=== PATIENT | female | born 1965 | race Caucasian/White ===

== ENCOUNTER 2020-03-25 09:16 | Outpatient (REF) | payer OTHER, SELFPAY ==
[2020-03-25 12:06] LABS: Cholesterol 204 mg/dL; HDL Cholesterol 54 mg/dL; LDL Cholesterol Calculated 127 mg/dl; Triglycerides 119 mg/dL
[2020-03-25 12:11] LABS: Estimated Average Glucose 120 mg/dL; Hemoglobin A1c % 5.8 %
[2020-03-25 12:15] LABS: Free T4 (Free Thyroxine) 1.05 ng/dL (0.71-1.85); Thyroid Stimulating Hormone 2.71 uIU/mL (0.32-4.0)
== END 2020-03-25 09:17 | disposition home or self-care (01) ==
LOC: HO.MANLR 09:16
PROVIDERS: PCP Internal Medicine; Visit Provider Physician Assistant
DX: E03.9 Hypothyroidism, unspecified (principal); E78.2 Mixed hyperlipidemia; R73.01 Impaired fasting glucose
CPT/HCPCS: 80061; 83036; 84439; 84443

== ENCOUNTER 2020-09-28 09:23 | Outpatient (REF) | payer OTHER, SELFPAY ==
[2020-09-28 11:24] LABS: MANUAL DIFF FLAG NO
[2020-09-28 11:40] LABS: Basophils Absolute Auto 0.1 X10*3/uL (0.0-0.2); Basophils Percent Auto 0.7 % (0-2); Eosinophils Absolute Auto 0.9 X10*3/uL (0.0-0.4); Eosinophils Percent Auto 12.1 % (0-4); Hematocrit 42.2 % (37-47); Hemoglobin 13.8 g/dl (12.0-16.0); Imm Gran Abs Auto 0.01 X10*3/uL (0.00-0.03); Imm Gran Pct Auto 0.1 % (0.0-0.4); Lymphocytes Absolute Auto 2.1 X10*3/uL (1.2-4.9); Mean Corpuscular HGB Conc 32.7 g/dl (31.0-35.0); Mean Corpuscular Hemoglobin 31.4 pg (27.0-33.0); Mean Corpuscular Volume 95.9 fL (80-98); Mean Platelet Volume 11.6 fL (9.4-12.3); Monocytes Absolute Auto 0.6 X10*3/uL (0.1-1.2); Neutrophils Absolute Auto 3.6 X10*3/uL (2.0-8.3); Neutrophils Percent Auto 50.1 % (45-73); Platelet Count 184 X10*3/uL (160-400); Red Cell Distribution Width 12.8 % (11.0-16.0); White Blood Count 7.1 X10*3/uL (4.8-10.8)
[2020-09-28 11:49] LABS: Prothrombin Time 11.6 SEC (10.8-13.0)
[2020-09-28 12:02] LABS: Iron 106 mcg/dL (30-160); Percent Iron Saturation 31 % (15-50); Total Iron Binding Capacity 337 mcg/dL (228-428); Unsaturated Iron Binding 231 ug/dL
[2020-09-28 12:07] LABS: Ferritin 124 ng/mL (10-250); Free T4 (Free Thyroxine) 1.16 ng/dL (0.71-1.85); Thyroid Stimulating Hormone 1.34 uIU/mL (0.32-4.0)
[2020-09-28 12:28] LABS: Folate 7.8 ng/mL (> or = 4.0); Vitamin B12 285 pg/mL (200-900)
== END 2020-09-28 09:24 | disposition home or self-care (01) ==
LOC: HO.MANLDS 09:23
PROVIDERS: PCP Internal Medicine; Visit Provider Physician Assistant
DX: R58 Hemorrhage, not elsewhere classified (principal)
CPT/HCPCS: 36415; 82607; 82728; 82746; 83540; 84439; 84443; 85025; 85610

== ENCOUNTER 2021-10-02 08:36 | Outpatient (REF) | payer OTHER, SELFPAY ==
[2021-10-02 11:31] LABS: MANUAL DIFF FLAG NO
[2021-10-02 11:46] LABS: Basophils Percent Auto 0.6 % (0-2); Hematocrit 42.1 % (37.0-47.0); Hemoglobin 14.3 g/dl (12.0-16.0); Imm Gran Abs Auto 0.01 X10*3/uL (0.00-0.03); Imm Gran Pct Auto 0.2 % (0.0-0.4); Lymphocytes Absolute Auto 2.3 X10*3/uL (1.2-4.9); Lymphocytes Percent Auto 35.7 % (20-40); Mean Corpuscular Hemoglobin 31.4 pg (27.0-33.0); Mean Corpuscular Volume 92.5 fL (80.0-98.0); Mean Platelet Volume 11.9 fL (9.4-12.3); Monocytes Absolute Auto 0.7 X10*3/uL (0.1-1.2); Monocytes Percent Auto 10.2 % (2-11); Neutrophils Absolute Auto 2.4 x10*3/uL (2.0-8.3); Neutrophils Percent Auto 37.3 % (45-73); Platelet Count 191 X10*3/uL (160-400); Red Blood Count 4.55 X10*6/uL (4.20-5.50); Red Cell Distribution Width 12.9 % (11.0-16.0); White Blood Count 6.4 X10*3/uL (4.8-10.8)
[2021-10-02 12:30] LABS: Alanine Aminotransferase 40 U/L (0-31); Albumin Level 4.1 g/dL (3.5-5.0); Alkaline Phosphatase 72 U/L (39-117); Anion Gap 13 (12-20); Aspartate Amino Transferase 29 U/L (5-31); Bilirubin Total 0.7 mg/dL (0.0-1.0); Blood Urea Nitrogen 17 mg/dL (9-16); Calcium 9.1 mg/dL (8.4-10.2); Carbon Dioxide 26 mmol/L (22-29); Chloride 107 mmol/L (96-108); Cholesterol 189 mg/dL; Estimated Glomerular Filt Rate > 60; Free T4 (Free Thyroxine) 1.15 ng/dL (0.71-1.85); Glucose Random 108 mg/dL (60-115); HDL Cholesterol 55 mg/dL; LDL Cholesterol Calculated 105 mg/dl; Potassium 4.3 mmol/L (3.3-5.1); Sodium 142 mmol/L (135-145); Thyroid Stimulating Hormone 0.11 uIU/mL (0.32-4.0); Total Protein 6.4 g/dL (6.5-8.0); Triglycerides 146 mg/dL
[2021-10-02 20:36] LABS: Estimated Average Glucose 111 mg/dL; Hemoglobin A1c % 5.5 %
== END 2021-10-02 08:37 | disposition home or self-care (01) ==
LOC: HO.MANLDS 08:36
PROVIDERS: Visit Provider Physician Assistant
DX: Z00.00 Encounter for general adult medical examination without abnormal findings (principal)
CPT/HCPCS: 36415; 80053; 80061; 83036; 84439; 84443; 85025

== ENCOUNTER 2021-11-06 10:30 | Outpatient (REF) | payer OTHER, SELFPAY ==
[2021-11-06 13:52] LABS: Thyroid Stimulating Hormone 0.31 uIU/mL (0.32-4.0)
== END 2021-11-06 10:31 | disposition home or self-care (01) ==
LOC: HO.MANLDS 10:30
PROVIDERS: Visit Provider Internal Medicine
DX: Z00.00 Encounter for general adult medical examination without abnormal findings (principal)
CPT/HCPCS: 36415; 84439; 84443

== ENCOUNTER 2022-10-01 07:34 | Outpatient (REF) | payer OTHER, SELFPAY ==
[2022-10-01 12:08] LABS: Alanine Aminotransferase 82 U/L (0-31); Albumin Level 4.1 g/dL (3.5-5.0); Alkaline Phosphatase 82 U/L (39-117); Anion Gap 12 (12-20); Aspartate Amino Transferase 63 U/L (5-31); Blood Urea Nitrogen 12 mg/dL (9-16); Calcium 9.6 mg/dL (8.4-10.2); Carbon Dioxide 27 mmol/L (22-29); Chloride 108 mmol/L (96-108); Cholesterol 205 mg/dL; Estimated Glomerular Filt Rate > 60; Glucose Random 116 mg/dL (60-115); HDL Cholesterol 53 mg/dL; LDL Cholesterol Calculated 120 mg/dl; Potassium 4.2 mmol/L (3.3-5.1); Sodium 143 mmol/L (135-145); Total Protein 6.3 g/dL (6.5-8.0); Triglycerides 160 mg/dL
[2022-10-01 12:18] LABS: Estimated Average Glucose 117 mg/dL; Hemoglobin A1C 149.0119 umol/L; Hemoglobin A1c % 5.7 %
[2022-10-01 12:24] LABS: Free T4 (Free Thyroxine) 1.21 ng/dL (0.71-1.85); Thyroid Stimulating Hormone 2.28 uIU/mL (0.32-4.0)
== END 2022-10-01 07:35 | disposition home or self-care (01) ==
LOC: HO.MANLDS 07:34
PROVIDERS: Visit Provider Physician Assistant
DX: Z00.00 Encounter for general adult medical examination without abnormal findings (principal)
CPT/HCPCS: 36415; 80053; 80061; 83036; 84439; 84443

== ENCOUNTER 2023-02-08 09:10 | Outpatient (REF) | payer OTHER, SELFPAY ==
[2023-02-08 13:25] LABS: Basophils Absolute Auto 0.1 X10*3/uL (0.0-0.2); Basophils Percent Auto 0.8 % (0-2); Eosinophils Absolute Auto 0.8 X10*3/uL (0.0-0.4); Hematocrit 44.8 % (37.0-47.0); Hemoglobin 15.1 g/dl (12.0-16.0); Imm Gran Abs Auto 0.01 X10*3/uL (0.00-0.03); Imm Gran Pct Auto 0.2 % (0.0-0.4); Lymphocytes Absolute Auto 2.3 X10*3/uL (1.2-4.9); Lymphocytes Percent Auto 39.1 % (20-40); MANUAL DIFF FLAG NO; Mean Corpuscular HGB Conc 33.7 g/dl (31.0-35.0); Mean Corpuscular Hemoglobin 31.8 pg (27.0-33.0); Mean Corpuscular Volume 94.3 fL (80.0-98.0); Mean Platelet Volume 12.1 fL (9.4-12.3); Monocytes Absolute Auto 0.4 X10*3/uL (0.1-1.2); Monocytes Percent Auto 7.4 % (2-11); Neutrophils Absolute Auto 2.3 x10*3/uL (2.0-8.3); Neutrophils Percent Auto 38.5 % (45-73); Platelet Count 167 X10*3/uL (160-400); Red Blood Count 4.75 X10*6/uL (4.20-5.50); Red Cell Distribution Width 12.4 % (11.0-16.0); White Blood Count 5.9 X10*3/uL (4.8-10.8)
[2023-02-08 14:01] LABS: Alanine Aminotransferase 84 U/L (0-31); Albumin Level 4.1 g/dL (3.5-5.0); Alkaline Phosphatase 78 U/L (39-117); Anion Gap 11 (12-20); Aspartate Amino Transferase 66 U/L (5-31); Bilirubin Total 0.6 mg/dL (0.0-1.0); Blood Urea Nitrogen 14 mg/dL (9-16); Calcium 9.1 mg/dL (8.4-10.2); Carbon Dioxide 26 mmol/L (22-29); Chloride 109 mmol/L (96-108); Cholesterol 189 mg/dL (<200); Estimated Average Glucose 117 mg/dL; Estimated Glomerular Filt Rate > 60; Glucose Random 115 mg/dL (60-115); HDL Cholesterol 54 mg/dL (>40); Hemoglobin A1c % 5.7 % (<6.0); LDL Cholesterol Calculated 108 mg/dL (<100); Potassium 4.2 mmol/L (3.3-5.1); Sodium 142 mmol/L (135-145); Total Protein 6.5 g/dL (6.5-8.0); Triglycerides 139 mg/dL (<150)
== END 2023-02-08 09:11 | disposition home or self-care (01) ==
LOC: HO.MANLDS 09:10
PROVIDERS: Visit Provider Physician Assistant
DX: R73.01 Impaired fasting glucose (principal); E78.5 Hyperlipidemia, unspecified
CPT/HCPCS: 36415; 80053; 80061; 83036; 85025

== ENCOUNTER 2023-06-11 13:51 | Outpatient (AMB) | payer OTHER, SELFPAY ==
--- NOTE | 2023-06-11 14:01 | MHC.OFFVIS ---
Intake Intake Visit Reasons: Ureteral stone 11 mm/Hydronephrosis Intake Note: NEW Patient presents today to established treatment for Ureteral Stone/Hydronephrosis: Meds- None Allergies to Antibiotic- No Known Allergies Blood Thinner- None Post Void Residual: Patient Symptoms: None Accompanied by: Self / Same As Patient Coding
--- NOTE | 2023-06-11 14:36 | A.OFFVIS_ITS ---
Intake Intake Visit Reasons: Ureteral stone/Hydronephrosis Intake Note: NEW Patient presents today to established treatment for Ureteral Stone/Hydronephrosis: Meds- None Allergies to Antibiotic- Penicillin Blood Thinner- None Sodium Chlorite Operator Required: No Accompanied by: Self / Same As Patient Allergies Penicillins Allergy (Mild, Verified 06/11/23 14:54) Unknown Medication List - Last Reconciled 06/11/23 by Amber Blanco MD fluticasone furoate-vilanterol 200-25 mcg/dose (Breo Ellipta) 1 ea inhalation DAILY levalbuterol tartrate 45 mcg/actuation 2 puffs inhalation Q4-6H levothyroxine (Synthroid) 112 mcg PO DAILY mirtazapine 15 mg PO BEDTIME pravastatin 40 mg PO DAILY simethicone (Gas Relief Extra Strength) mg PO triamcinolone acetonide 0.1% topical DAILY HPI HPI Comments History of Present Illness Details Serena is a 58-year-old female here for new patient evaluation. She has a history of kidney stones for about 4-5 years. She states that her prior urologist no longer takes her insurance. The patient states that on 05/07/[address] scan due to right flank pain. She has a report on her phone that I have reviewed. (office will have report faxed to my attention) The report indicated mild right hydronephrosis with 5 mm distal ureteral stone and other nonobstructing right kidney stones. Left kidney within normal limits. The patient had follow-up imaging with an ultrasound. I reviewed renal ultrasound report dated 06/05/2023-- right hydronephrosis, moderate, minimal cortical scarring as seen on prior CT on 05/07/2023 for left kidney within normal limits The patient states that she no longer has pain. She denies any irritative voiding symptoms. PLAN:--discussed re-evaluation with CT abdomen and pelvis without IV contrast. Diet sheet provided and reviewed with information regarding recommendations to reduce kidney stone production. She states that she is on a high-protein diet for weight management. Discussed 24 hour urine collection to be obtained Follow up in 6 weeks [facility] Surgical History No pertinent past surgical history Family History Father No problems noted. Mother No problems noted. Social History Alcohol intake: current Alcohol intake frequency: holidays/special occasions only Patient Tobacco Use Status: Never used Tobacco Review of Systems Const All systems reviewed & are unremarkable except as noted in HPI and below Reports no additional complaints Eyes Reports no additional complaints ENT Reports no additional complaints Card Denies dyspnea Resp Denies cough and Denies dyspnea GI Reports no additional complaints Reports no additional complaints Musc Reports no additional complaints Skin/Breast Denies rash and Denies unusual bruising Neuro Reports no additional complaints Psych Reports no additional complaints Endo Reports no additional complaints James/Lymph Reports no additional complaints Aller/Immun Reports no additional complaints Physical Exam Const General: cooperative, healthy appearing and no acute distress Orientation/consciousness: patient oriented x3 HEENT Head: Yes normal to inspection, Yes normocephalic and Yes atraumatic Eyes Conjunctivae: conjunctivae normal Neck Neck: Yes normal visual inspection and Yes trachea midline Chest Chest palpation & inspection: normal inspection of the chest Resp Effort & Inspection: normal respiratory effort Cardio Rate: regular rate GI Inspection: Yes normal to inspection Skin General skin exam: no rashes or lesions noted Neuro General: patient oriented x3 Extrem General: No edema Psych Appearance: grossly normal Results AMB Urinalysis, Automated UA Leukoctes 0 Eric/uL Last Edit by SUZI Burgess on 06/11/23 15:07 UA Nitrite Negative Last Edit by SUZI Burgess on 06/11/23 15:07 UA Urobilinogen 0.2 mg/dL Last Edit by SUZI Burgess on 06/11/23 15:0 7 UA Protein 0 mg/dL Last Edit by SUZI Burgess on 06/11/23 15:07 UA pH 6.0 Last Edit by SUZI Burgess on 06/11/23 15:07 UA Blood 25 Greg/uL Last Edit by SUZI Burgess on 06/11/23 15:07 1+ Betsey Boyd 06/11/23 15:07 UA Specific [place] 1.010 Last Edit by SUZI Burgess on 06/11/23 15: 07 UA Ketone Negative Last Edit by SUZI Burgess on 06/11/23 15:07 UA Bilirubin 0 mg/dL Last Edit by SUZI Burgess on 06/11/23 15:07 UA Glucose 0 mg/dL Last Edit by SUZI Burgess on 06/11/23 15:07 Results Reviewed Results Reviewed: Laboratory Last Values Urine pH (Auto) 6.0 06/11/23 14:59 Specific [place] (Auto) 1.010 06/11/23 14:59 Urine Protein (Auto) 0 mg/dL 06/11/23 14:59 Glucose (UA)(Auto) 0 mg/dL 06/11/23 14:59 Urine Ketones (Auto) Negative 06/11/23 14:59 Urine Blood (Auto) 25 Greg/uL 06/11/23 14:59 Urine Nitrite (Auto) Negative 06/11/23 14:59 Urine Bilirubin (Auto) 0 mg/dL 06/11/23 14:59 Urine Urobilinogen (Auto) 0.2 mg/dL 06/11/23 14:59 Leukocyte Esterase (Auto) 0 Eric/uL 06/11/23 14:59 Assessment & Plan Assessment & Plan (1) History of kidney stones: Code(s): Z87.442 - Personal history of urinary calculi (2) Hydronephrosis, right: Code(s): N13.30 - Unspecified hydronephrosis (3) Renal calculi: Code(s): N20.0 - Calculus of kidney Plan discussed re-evaluation with CT abdomen and pelvis without IV contrast. Diet sheet provided and reviewed with information regarding recommendations to reduce kidney stone production. She states that she is on a high-protein diet for weight management. Discussed 24 hour urine collection to be obtained Follow up in 6 weeks Orders: Orders AMB Urinalysis Automated Today Z13.9 - Encounter for screening, unspecified CT abdomen pelvis wo IV con Today N13.30 - Unspecified hydronephrosis, N20.0 - Calculus of kidney Patient Instructions: The patient had an opportunity to ask questions regarding treatment plan. All questions were answered. Imaging, Laboratory studies and physical exam results were discussed and reviewed in detail. No major barriers to understanding were identified. The patient expressed understanding and agreement with the above treatment plan. The patient is aware they should contact our office by phone for worsening of their current condition or the appearance of new symptoms. Compliance is encouraged with any medications and followup testing that is ordered. It is a privilege to be allowed the opportunity to participate in the urologic care of your patient. If you have any questions or concerns regarding treatment for the above conditions please do not hesitate to contact me. The office telephone contact is [phone]. This note is constructed in part using voice recognition software. While every effort has been made to ensure accuracy marketing analytics manager errors may have been included. Yours sincerely, Amber Blanco MD Coding Level of Care Code New Pt Level 4 (71955) Diagnoses History of kidney stones Z87.442 Hydronephrosis, right N13.30 Renal calculi N20.0
== END 2023-06-11 15:48 | disposition home or self-care (01) ==
PROVIDERS: PCP Internal Medicine; Referring Provider Internal Medicine; Visit Provider Urology
DX: Z87.442 Personal history of urinary calculi (principal); N13.30 Unspecified hydronephrosis; N20.0 Calculus of kidney; Z13.9 Encounter for screening, unspecified
CPT/HCPCS: 99204

== ENCOUNTER → 2023-06-11 13:51 | Outpatient (BNVA) | payer OTHER, SELFPAY | PROVIDERS: PCP Internal Medicine; Visit Provider Urology | DX: N13.2 Hydronephrosis with renal and ureteral calculous obstruction (principal) | CPT/HCPCS: 81003 ==

== ENCOUNTER 2023-07-17 14:28 | Outpatient (REF) | payer OTHER, SELFPAY ==
--- NOTE | ~2023-07-17 | CT_ITS ---
EXAMINATION: CT ABDOMEN AND PELVIS WITHOUT CONTRAST CLINICAL INFORMATION: Hydronephrosis COMPARISON: None available. TECHNIQUE: Multidetector volumetric imaging was performed from the superior aspect of the liver through the pubic symphysis. Sagittal and coronal reformatted images were obtained on the technologist's workstation. This CT examination was performed using dose optimization techniques as appropriate, variously including the following: *Automated exposure control *Adjustment of mA and/or kV according to patient size (this includes techniques or standardized protocols for targeted exams where dose is matched to indication/reason for exam; i.e. extremities or head) *Use of iterative reconstruction technique DLP: 585 mGy-cm FINDINGS: LUNG BASES: The visualized lung bases are unremarkable. LIVER, GALLBLADDER, AND BILIARY TREE: Liver is of low attenuation due to hepatic steatosis and enlarged The gallbladder is unremarkable with no evidence of radiopaque gallstones, gallbladder wall thickening, or obvious pericholecystic inflammatory changes. PANCREAS: Unremarkable. SPLEEN: Unremarkable. ADRENAL GLANDS: Unremarkable. KIDNEYS AND URETERS: Right kidney revealed speckled calcifications in the lower pole questionably associated with mass as well as lower pole nonobstructing 0.6 cm stone. There is no hydroureteronephrosis on the right Left kidney is unremarkable. BLADDER: Bladder is decompressed without stones or masses GASTROINTESTINAL TRACT: The small and large bowel are unremarkable. The appendix is unremarkable. ABDOMINAL WALL: No significant hernia is appreciated. LYMPH NODES: Normal. VASCULAR: Unremarkable. PELVIC VISCERA: Unremarkable. OSSEOUS STRUCTURES: Unremarkable. CT/CT abdomen pelvis wo IV con IMPRESSION: 1. Right nephrolithiasis without hydroureteronephrosis. 2. Questionable mass in the lower pole of the right kidney associated with calcifications. Correlate with IV enhanced CT scan or/and ultrasound 3. Hepatic steatosis and hepatomegaly. Fleischner guidelines were followed.
== END 2023-07-17 14:29 | disposition home or self-care (01) ==
LOC: HO.CT 14:28
PROVIDERS: PCP Internal Medicine; Visit Provider Urology
DX: N13.30 Unspecified hydronephrosis (principal); N20.0 Calculus of kidney
CPT/HCPCS: 74176

== ENCOUNTER 2023-07-26 13:33 | Outpatient (AMB) | payer OTHER, SELFPAY ==
--- NOTE | 2023-07-26 14:08 | A.OFFVIS_ITS ---
Intake Visit Reasons: 6w/CT/[facility] Intake Note: Patient presents today to for a follow-up on [facility] & CT Scan Results: Meds- None Allergies to Antibiotic- Penicillin Blood Thinner- None Laundry Machine Tender Required: No Accompanied by: Self / Same As Patient Allergies Penicillins Allergy (Mild, Verified 06/11/23 14:54) Unknown HPI Comments Details: 07/26/2023--Serena has a history of kidney stones. She was initially evaluated on 06/11/2023. I discussed metabolic workup and she completed 24 hour urine on 07/02/2023. Discussed 24 hour urine results: Total volume 1.37 L, Calcium 82 mg; Oxalate 22 mg, Sodium 126, Citrate 522 mg. Instructed on importance of fluid intake, discussed increasing fluid intake to [address] imaging without IV contrast completed on 07/17/2023 which noted a indeterminate renal mass. Plan repeat CT with and without IV contrast follow-up in 6 months. 07/17/2023-- CTAP: Right kidney revealed speckled calcifications in the lower pole questionably associated with mass. nonobstructing 0.6 cm stone lower pole. Left kidney is unremarkable. Review of chart: 06/11/23--Serena is a 58-year-old female here for new patient evaluation. She has a history of kidney stones for about 4-5 years. She states that her prior urologi st no longer takes her insurance. The patient states that on 05/07/[address] scan due to right flank pain. She has a report on her phone that I have reviewed. (office will have report faxed to my attention) The report indicated mild right hydronephrosis with 5 mm distal ureteral stone and other nonobstructing right kidney stones. Left kidney within normal limits. The patient had follow-up imaging with an ultrasound. The patient states that she no longer has pain. She denies any irritative voiding symptoms. I reviewed renal ultrasound report dated 06/05/2023-- right hydronephrosis, moderate, minimal cortical scarring as seen on prior CT on 05/07/2023 for left kidney within normal limits. Discussed re-evaluation with CT abdomen and pelvis without IV contrast. Diet sheet provided and reviewed with information regarding recommendations to reduce kidney stone production. She states that she is on a high-protein diet for weight management. Discussed 24 hour urine collection to be obtained. Follow up in 6 weeks [facility] Medical History (Updated 09/01/23 @ 11:34 by Amber Blanco MD) Hx of mammogram Mixed hyperlipidemia Angioedema Migraine Fibromyalgia Hypothyroid Asthma Anxiety Impaired fasting blood sugar Surgical History (Updated 07/16/23 @ 10:41 by SUZI Burgess) Hx of colonoscopy Family History Father No problems noted. Mother No problems noted. Social History Alcohol intake: current Alcohol intake frequency: holidays/special occasions only Patient Tobacco Use Status: Never used Tobacco Review of Systems Const All systems reviewed & are unremarkable except as noted in HPI and below Reports no additional complaints Eyes Reports no additional complaints ENT Reports no additional complaints Card Reports no additional complaints Resp Reports no additional complaints GI Reports no additional complaints Reports as per HPI Musc Reports no additional complaints Skin/Breast Reports system reviewed and no additional complaints, except as documented Neuro Reports no additional complaints Psych Reports no additional complaints Endo Reports no additional complaints James/Lymph Reports no additional complaints Aller/Immun Reports no additional complaints Results AMB Urinalysis, Automated UA Leukoctes 0 Eric/uL Last Edit by SUZI Burgess on 07/26/23 14:28 UA Nitrite Negative Last Edit by SUZI Burgess on 07/26/23 14:28 UA Urobilinogen 0.2 mg/dL Last Edit by SUZI Burgess on 07/26/23 14:2 8 UA Protein 0 mg/dL Last Edit by SUZI Burgess on 07/26/23 14:28 UA pH 6.0 Last Edit by SUZI Burgess on 07/26/23 14:28 UA Blood 10 Greg/uL Last Edit by SUZI Burgess on 07/26/23 14:28 UA Specific [place] 1.015 Last Edit by SUZI Burgess on 07/26/23 14: 28 UA Ketone Negative Last Edit by Madisonnavi OliverSUZI daniel on 07/26/23 14:28 UA Bilirubin 0 mg/dL Last Edit by SUZI Burgess on 07/26/23 14:28 UA Glucose 0 mg/dL Last Edit by SUZI Burgess on 07/26/23 14:28 Results Reviewed Results Reviewed: Laboratory Last Values Urine pH (Auto) 6.0 07/26/23 14:25 Specific [place] (Auto) 1.015 07/26/23 14:25 Urine Protein (Auto) 0 mg/dL 07/26/23 14:25 Glucose (UA)(Auto) 0 mg/dL 07/26/23 14:25 Urine Ketones (Auto) Negative 07/26/23 14:25 Urine Blood (Auto) 10 Greg/uL 07/26/23 14:25 Urine Nitrite (Auto) Negative 07/26/23 14:25 Urine Bilirubin (Auto) 0 mg/dL 07/26/23 14:25 Urine Urobilinogen (Auto) 0.2 mg/dL 07/26/23 14:25 Leukocyte Esterase (Auto) 0 Eric/uL 07/26/23 14:25 Date of Service: 07/17/23 EXAMINATION: CT ABDOMEN AND PELVIS WITHOUT CONTRAST CLINICAL INFORMATION: Hydronephrosis COMPARISON: None available. TECHNIQUE: Multidetector volumetric imaging was performed from the superior aspect of the liver through the pubic symphysis. Sagittal and coronal reformatted images were obtained on the technologist's workstation. This CT examination was performed using dose optimization techniques as appropriate, variously including the following: *Automated exposure control *Adjustment of mA and/or kV according to patient size (this includes techniques or standardized protocols for targeted exams where dose is matched to indication/reason for exam; i.e. extremities or head) *Use of iterative reconstruction technique DLP: 585 mGy-cm FINDINGS: LUNG BASES: The visualized lung bases are unremarkable. LIVER, GALLBLADDER, AND BILIARY TREE: Liver is of low attenuation due to hepatic steatosis and enlarged The gallbladder is unremarkable with no evidence of radiopaque gallstones, gallbladder wall thickening, or obvious pericholecystic inflammatory changes. PANCREAS: Unremarkable. SPLEEN: Unremarkable. ADRENAL GLANDS: Unremarkable. KIDNEYS AND URETERS: 4 harding BLADDER: Bladder is decompressed without stones or masses GASTROINTESTINAL TRACT: The small and large bowel are unremarkable. The appendix is unremarkable. ABDOMINAL WALL: No significant hernia is appreciated. LYMPH NODES: Normal. VASCULAR: Unremarkable. PELVIC VISCERA: Unremarkable. OSSEOUS STRUCTURES: Unremarkable. IMPRESSION: 1. Right nephrolithiasis without hydroureteronephrosis. 2. Questionable mass in the lower pole of the right kidney associated with calcifications. Correlate with IV enhanced CT scan or/and ultrasound 3. Hepatic steatosis and hepatomegaly. Assessment & Plan Assessment & Plan (1) Renal calculi: Code(s): N20.0 - Calculus of kidney Category: Medical (2) Renal mass of unknown nature: Code(s): N28.89 - Other specified disorders of kidney and ureter Category: Medical Plan CT abdomen with and without IV contrast in 6 months Orders: Orders CT abdomen wo/w IV con 6 Months N28.89 - Other specified disorders of kidney and ureter AMB Urinalysis Automated 07/26/23 Z13.9 - Encounter for screening, unspecified Patient Instructions: The patient had an opportunity to ask questions regarding treatment plan. The patient expressed understanding and agreement with the above treatment plan. The patient is aware they should contact our office by phone for worsening of their current condition or the appearance of new symptoms. Compliance is encouraged with any medications and followup testing that is ordered. It is a privilege to be allowed the opportunity to participate in the urologic care of your patient. If you have any questions or concerns regarding treatment for the above conditions please do not hesitate to contact me. The office telephone contact is [phone]. This note is constructed in part using voice recognition software. While every effort has been made to ensure accuracy mingler operator errors may have been included. Yours sincerely, Amber Blanco MD Coding Level of Care Code Est Pt Level 4 (56185) Diagnoses Renal calculi N20.0 Renal mass of unknown nature N28.89
== END 2023-07-26 15:19 | disposition home or self-care (01) ==
PROVIDERS: PCP Internal Medicine; Visit Provider Urology
DX: N20.0 Calculus of kidney (principal); N28.89 Other specified disorders of kidney and ureter
CPT/HCPCS: 99214

== ENCOUNTER → 2023-07-26 13:33 | Outpatient (BNVA) | payer OTHER, SELFPAY | PROVIDERS: PCP Internal Medicine; Visit Provider Urology | DX: N20.0 Calculus of kidney (principal); N28.89 Other specified disorders of kidney and ureter | CPT/HCPCS: 81003 ==

== ENCOUNTER 2023-11-13 10:08 | Outpatient (REF) | payer OTHER, SELFPAY ==
[2023-11-13 13:09] LABS: MANUAL DIFF FLAG NO
[2023-11-13 13:14] LABS: Basophils Absolute Auto 0.1 X10*3/uL (0.0-0.2); Basophils Percent Auto 0.9 % (0-2); Eosinophils Absolute Auto 0.6 X10*3/uL (0.0-0.4); Eosinophils Percent Auto 11.6 % (0-4); Hematocrit 43.7 % (37.0-47.0); Hemoglobin 15.1 g/dl (12.0-16.0); Imm Gran Abs Auto 0.01 X10*3/uL (0.00-0.03); Imm Gran Pct Auto 0.2 % (0.0-0.4); Lymphocytes Absolute Auto 2.4 X10*3/uL (1.2-4.9); Lymphocytes Percent Auto 43.9 % (20-40); Mean Corpuscular HGB Conc 34.6 g/dl (31.0-35.0); Mean Corpuscular Hemoglobin 32.3 pg (27.0-33.0); Mean Corpuscular Volume 93.6 fL (80.0-98.0); Mean Platelet Volume 12.3 fL (9.4-12.3); Monocytes Absolute Auto 0.5 X10*3/uL (0.1-1.2); Neutrophils Absolute Auto 1.9 x10*3/uL (2.0-8.3); Neutrophils Percent Auto 34.4 % (45-73); Platelet Count 160 X10*3/uL (160-400); Red Blood Count 4.67 X10*6/uL (4.20-5.50); Red Cell Distribution Width 12.3 % (11.0-16.0); White Blood Count 5.5 X10*3/uL (4.8-10.8)
[2023-11-13 14:06] LABS: Estimated Average Glucose 111 mg/dL; Hemoglobin A1c % 5.5 % (<6.0)
[2023-11-13 14:11] LABS: Blood Urea Nitrogen 16 mg/dL (9-16); Estimated Glomerular Filt Rate > 60
[2023-11-13 14:22] LABS: Alanine Aminotransferase 64 U/L (0-31); Albumin Level 4.3 g/dL (3.5-5.0); Alkaline Phosphatase 68 U/L (39-117); Anion Gap 14 (12-20); Aspartate Amino Transferase 45 U/L (5-31); Bilirubin Total 0.8 mg/dL (0.0-1.0); Blood Urea Nitrogen 16 mg/dL (9-16); Calcium 9.9 mg/dL (8.4-10.2); Carbon Dioxide 27 mmol/L (22-29); Chloride 106 mmol/L (96-108); Cholesterol 161 mg/dL (<200); Estimated Glomerular Filt Rate > 60; Glucose Random 102 mg/dL (60-115); HDL Cholesterol 52 mg/dL (>40); LDL Cholesterol Calculated 90 mg/dL (<100); Sodium 143 mmol/L (135-145); Total Protein 6.9 g/dL (6.5-8.0); Triglycerides 95 mg/dL (<150)
[2023-11-13 14:30] LABS: Free T4 (Free Thyroxine) 1.31 ng/dL (0.71-1.85)
== END 2023-11-13 10:09 | disposition home or self-care (01) ==
LOC: HO.MANLDS 10:08
PROVIDERS: Urology; Visit Provider Physician Assistant
DX: E03.9 Hypothyroidism, unspecified (principal); N20.0 Calculus of kidney; N13.30 Unspecified hydronephrosis; Z87.442 Personal history of urinary calculi; Z13.1 Encounter for screening for diabetes mellitus
CPT/HCPCS: 36415; 80053; 80061; 82565; 83036; 84439; 84443; 84520; 85025

== ENCOUNTER 2024-01-08 10:34 | Outpatient (REF) | payer OTHER, SELFPAY ==
--- NOTE | ~2024-01-08 | CT_ITS ---
EXAMINATION: CT ABDOMEN WITHOUT AND WITH CONTRAST CLINICAL INFORMATION: Renal mass COMPARISON: None available. TECHNIQUE: Contiguous axial thin section helical images of the abdomen were performed before and after the administration of 85 mL of Omnipaque 350 intravenous contrast. The data set was reformatted in the coronal and sagittal planes and reviewed on an independent workstation. This CT examination was performed using dose optimization techniques as appropriate, variously including the following: *Automated exposure control *Adjustment of mA and/or kV according to patient size (this includes techniques or standardized protocols for targeted exams where dose is matched to indication/reason for exam; i.e. extremities or head) *Use of iterative reconstruction technique DLP: 511 mGy-cm FINDINGS: LUNG BASES: Clear LIVER, GALLBLADDER, AND BILIARY TREE: Mild diffuse fatty infiltration of the liver. No focal liver lesion. No intrahepatic biliary ductal dilatation. PANCREAS: Normal SPLEEN: Normal ADRENAL GLANDS AND KIDNEYS: Normal adrenal glands. There is a 6 mm obstructing calculus in the mid right ureter with moderate hydroureteronephrosis. At the anterior aspect of the lower pole of the right kidney, there is a 1.6 cm area of cortical thinning and retraction with multiple small calcifications with no definite enhancing mass. This may represent an area of prior surgery or a remote infarct or site of infection. The left kidney appears normal. BOWEL LOOPS: Visualized small and large bowel loops are unremarkable. LYMPH NODES: Normal. VASCULAR: Scattered atherosclerotic calcifications of the abdominal aorta. BONES: Unremarkable CT/CT abdomen wo/w IV con IMPRESSION: 1. There is a 6 mm obstructing calculus in the mid right ureter with moderate right hydroureteronephrosis. 2. There is a 1.6 cm area of cortical thinning and retraction at the anterior aspect of the lower pole of the right kidney with multiple small calcifications with no definite enhancing mass. This may represent an area of prior surgery or a remote infarct or site of infection. 3. Mild fatty infiltration of the liver. Fleischner guidelines were followed. Electronically signed by: Chevy Espinal MD 01/08/2024 02:12 PM EDT
[2024-01-08] MEDS: iohexoL 350 MG/ML 75 ML INFUS..BTL 85 ML IV (11:01)
[2024-01-08 16:21] LABS: Creatinine POC 0.9 mg/dL (0.5-1.4); GFR POC > 60
== END 2024-01-08 10:35 | disposition home or self-care (01) ==
LOC: HO.CT 10:34
PROVIDERS: PCP Internal Medicine; Visit Provider Urology
DX: N28.89 Other specified disorders of kidney and ureter (principal)
CPT/HCPCS: 74170; 82565; Q9967

== ENCOUNTER 2024-02-21 13:43 | Outpatient (AMB) | payer OTHER, SELFPAY ==
--- NOTE | 2024-02-21 14:05 | MHC.OFFVIS ---
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 The patient states she has no kidney pain or urinary symptoms. I will check an ultrasound kidney and bladder to fu hydronephrosis and ureteral stone, no enhancing renal mass noted. CTAT w/wo IV contrast- 01/07/34--There is a 6 mm obstructing calculus in the mid right ureter with moderate right hydroureteronephrosis. no suspicious renal mass. Review of chart: 07/26/2023--Serena has a history of kidney stones. She was initially evaluated on 06/11/2023. I discussed metabolic workup and she completed 24 hour urine on 07/02/2023. Discussed 24 hour urine results: Total volume 1.37 L, Calcium 82 mg; Oxalate 22 mg, Sodium 126, Citrate 522 mg. Instructed on importance of fluid intake, discussed increasing fluid intake to [address] imaging without IV contrast completed on 07/17/2023 which noted a indeterminate renal mass. Plan repeat CT with and without IV contrast follow-up in 6 months. 07/17/2023-- CTAP: Right kidney revealed speckled calcifications in the lower pole questionably associated with mass. nonobstructing 0.6 cm stone lower pole. Left kidney is unremarkable. 06/11/23--Serena is a 58-year-old female here for new patient evaluation. She has a history of kidney stones for about 4-5 years. She states that her prior urologist no longer takes her insurance. The patient states that on 05/07/[address] scan due to right flank pain. She has a report on her phone that I have reviewed. (office will have report faxed to my attention) The report indicated mild right hydronephrosis with 5 mm distal ureteral stone and other nonobstructing right kidney stones. Left kidney within normal limits. The patient had follow-up imaging with an ultrasound. The patient states that she no longer has pain. She denies any irritative voiding symptoms. I reviewed renal ultrasound report dated 06/05/2023-- right hydronephrosis, moderate, minimal cortical scarring as seen on prior CT on 05/07/2023 for left kidney within normal limits. Discussed re-evaluation with CT abdomen and pelvis without IV contrast. Diet sheet provided and reviewed with information regarding recommendations to reduce kidney stone production. She states that she is on a high-protein diet for weight management. Discussed 24 hour urine collection to be obtained. Follow up in 6 weeks [facility] Medical History Hx of mammogram Mixed hyperlipidemia Angioedema Migraine Fibromyalgia Hypothyroid Asthma Anxiety Impaired fasting blood sugar Surgical History Hx of colonoscopy Family History Father No problems noted. Mother No problems noted. Social History Alcohol intake: current Alcohol intake frequency: holidays/special occasions only Patient Tobacco Use Status: Never used Tobacco Review of Systems Const All systems reviewed & are unremarkable except as noted in HPI and below Reports no additional complaints Eyes Reports no additional complaints ENT Reports no additional complaints Card Reports no additional complaints Resp Reports no additional complaints GI Reports no additional complaints Reports as per HPI Musc Reports no additional complaints Skin/Breast Reports system reviewed and no additional complaints, except as documented Neuro Reports no additional complaints Psych Reports no additional complaints Endo Reports no additional complaints James/Lymph Reports no additional complaints Aller/Immun Reports no additional complaints Results AMB Urinalysis, Automated UA Leukoctes 15 Eric/uL Last Edit by SHAE Phillips on 02/21/24 14:22 UA Nitrite Negative Last Edit by SHAE Phillips on 02/21/24 14:22 UA Urobilinogen 3.5 mg/dL Last Edit by SHAE Phillips on 02/21/24 14:22 UA Protein 0 mg/dL Last Edit by SHAE Phillips on 02/21/24 14:22 UA pH 8.0 Last Edit by SHAE Phillips on 02/21/24 14:22 UA Blood 10 Greg/uL Last Edit by SHAE Phillips on 02/21/24 14:22 UA Specific [place] 1.015 Last Edit by SHAE Phillips on 02/21/24 14:22 UA Ketone Negative Last Edit by SHAE Phillips on 02/21/24 14:22 UA Bilirubin 0 mg/dL Last Edit by SHAE Phillips on 02/21/24 14:22 UA Glucose 0 mg/dL Last Edit by SHAE Phillips on 02/21/24 14:22 Results Reviewed Results Reviewed: Laboratory Last Values Urine pH (Auto) 8.0 02/21/24 14:21 Specific [place] (Auto) 1.015 02/21/24 14:21 Urine Protein (Auto) 0 mg/dL 02/21/24 14:21 Glucose (UA)(Auto) 0 mg/dL 02/21/24 14:21 Urine Ketones (Auto) Negative 02/21/24 14:21 Urine Blood (Auto) 10 Greg/uL 02/21/24 14:21 Urine Nitrite (Auto) Negative 02/21/24 14:21 Urine Bilirubin (Auto) 0 mg/dL 02/21/24 14:21 Urine Urobilinogen (Auto) 3.5 mg/dL 02/21/24 14:21 Leukocyte Esterase (Auto) 15 Eric/uL 02/21/24 14:21 Date of Service: 01/08/24 CT ABDOMEN WITHOUT AND WITH CONTRAST CLINICAL INFORMATION: Renal mass COMPARISON: None available. TECHNIQUE: Contiguous axial thin section helical images of the abdomen were performed before and after the administration of 85 mL of Omnipaque 350 intravenous contrast. The data set was reformatted in the coronal and sagittal planes and reviewed on an independent workstation. This CT examination was performed using dose optimization techniques as appropriate, variously including the following: *Automated exposure control *Adjustment of mA and/or kV according to patient size (this includes techniques or standardized protocols for targeted exams where dose is matched to indication/reason for exam; i.e. extremities or head) *Use of iterative reconstruction technique DLP: 511 mGy-cm FINDINGS: LUNG BASES: Clear LIVER, GALLBLADDER, AND BILIARY TREE: Mild diffuse fatty infiltration of the liver. No focal liver lesion. No intrahepatic biliary ductal dilatation. PANCREAS: Normal SPLEEN: Normal ADRENAL GLANDS AND KIDNEYS: Normal adrenal glands. There is a 6 mm obstructing calculus in the mid right ureter with moderate hydroureteronephrosis. At the anterior aspect of the lower pole of the right kidney, there is a 1.6 cm area of cortical thinning and retraction with multiple small calcifications with no definite enhancing mass. This may represent an area of prior surgery or a remote infarct or site of infection. The left kidney appears normal. BOWEL LOOPS: Visualized small and large bowel loops are unremarkable. LYMPH NODES: Normal. VASCULAR: Scattered atherosclerotic calcifications of the abdominal aorta. BONES: Unremarkable IMPRESSION: 1. There is a 6 mm obstructing calculus in the mid right ureter with moderate right hydroureteronephrosis. 2. There is a 1.6 cm area of cortical thinning and retraction at the anterior aspect of the lower pole of the right kidney with multiple small calcifications with no definite enhancing mass. This may represent an area of prior surgery or a remote infarct or site of infection. 3. Mild fatty infiltration of the liver. Date of Service: 07/17/23 EXAMINATION: CT ABDOMEN AND PELVIS WITHOUT CONTRAST CLINICAL INFORMATION: Hydronephrosis COMPARISON: None available. TECHNIQUE: Multidetector volumetric imaging was performed from the superior aspect of the liver through the pubic symphysis. Sagittal and coronal reformatted images were obtained on the technologist's workstation. This CT examination was performed using dose optimization techniques as appropriate, variously including the following: *Automated exposure control *Adjustment of mA and/or kV according to patient size (this includes techniques or standardized protocols for targeted exams where dose is matched to indication/reason for exam; i.e. extremities or head) *Use of iterative reconstruction technique DLP: 585 mGy-cm FINDINGS: LUNG BASES: The visualized lung bases are unremarkable. LIVER, GALLBLADDER, AND BILIARY TREE: Liver is of low attenuation due to hepatic steatosis and enlarged The gallbladder is unremarkable with no evidence of radiopaque gallstones, gallbladder wall thickening, or obvious pericholecystic inflammatory changes. PANCREAS: Unremarkable. SPLEEN: Unremarkable. ADRENAL GLANDS: Unremarkable. KIDNEYS AND URETERS: 4 harding BLADDER: Bladder is decompressed without stones or masses GASTROINTESTINAL TRACT: The small and large bowel are unremarkable. The appendix is unremarkable. ABDOMINAL WALL: No significant hernia is appreciated. LYMPH NODES: Normal. VASCULAR: Unremarkable. PELVIC VISCERA: Unremarkable. OSSEOUS STRUCTURES: Unremarkable. IMPRESSION: 1. Right nephrolithiasis without hydroureteronephrosis. 2. Questionable mass in the lower pole of the right kidney associated with calcifications. Correlate with IV enhanced CT scan or/and ultrasound 3. Hepatic steatosis and hepatomegaly. Assessment & Plan Assessment & Plan (1) Renal calculi: Code(s): N20.0 - Calculus of kidney Category: Medical (2) Hydronephrosis, right: Code(s): N13.30 - Unspecified hydronephrosis Category: Medical (3) Ureteral stone: Code(s): N20.1 - Calculus of ureter Category: Medical Plan Ultrasound retroperitoneal, flomax Orders: Orders AMB Urinalysis Automated 02/21/24 Z13.9 - Encounter for screening, unspecified US retroperitoneal comp 02/21/24 N13.30 - Unspecified hydronephrosis, N20.1 - Calculus of ureter Medications: New tamsulosin (Flomax) 0.4 mg PO BEDTIME 20 caps 0RF to help pass stone Patient Instructions: The patient had an opportunity to ask questions regarding treatment plan. The patient expressed understanding and agreement with the above treatment plan. The patient is aware they should contact our office by phone for worsening of their current condition or the appearance of new symptoms. Compliance is encouraged with any medications and followup testing that is ordered. It is a privilege to be allowed the opportunity to participate in the urologic care of your patient. If you have any questions or concerns regarding treatment for the above conditions please do not hesitate to contact me. The office telephone contact is [phone]. This note is constructed in part using voice recognition software. While every effort has been made to ensure accuracy recreational programs director errors may have been included. Yours sincerely, Amber Blanco MD Coding Level of Care Code Est Pt Level 4 (12050) Diagnoses Renal calculi N20.0 Hydronephrosis, right N13.30 Ureteral stone N20.1
== END 2024-02-21 14:54 | disposition home or self-care (01) ==
PROVIDERS: PCP Internal Medicine; Visit Provider Urology
DX: N20.0 Calculus of kidney (principal); N13.30 Unspecified hydronephrosis; N20.1 Calculus of ureter
CPT/HCPCS: 99214

== ENCOUNTER → 2024-02-21 13:43 | Outpatient (BNVA) | payer OTHER, SELFPAY | PROVIDERS: PCP Internal Medicine; Visit Provider Urology | DX: N20.0 Calculus of kidney (principal) | CPT/HCPCS: 81003 ==

== ENCOUNTER 2024-03-11 09:35 | Outpatient (REF) | payer OTHER, SELFPAY ==
--- NOTE | ~2024-03-11 | US_ITS ---
EXAMINATION: US RETROPERITONEAL COMPLETE (RENAL) CLINICAL INFORMATION: Hydronephrosis. COMPARISON: CT abdomen January 08, 2024 TECHNIQUE: Real-time imaging of the kidneys and bladder. FINDINGS: RIGHT KIDNEY: 10.9 x 5 x 5.3 cm (SAG x AP x TRV). The kidney is normal in size, contour, and echogenicity. Renal cortical thickness is normal. Moderate right hydronephrosis. LEFT KIDNEY: 10.6 x 5.1 x 5.8 cm (SAG x AP x TRV). The kidney is normal in size, contour, and echogenicity. Renal cortical thickness is normal. No calculi or focal parenchymal lesions. No hydronephrosis. BLADDER: Well distended and normal. Bilateral ureteral jets are demonstrated. Prevoid bladder volume is 406 mL. Postvoid volume is 16.5 mL. US/US retroperitoneal comp IMPRESSION: Moderate right-sided hydronephrosis. Electronically signed by: Dayton Gorman MD 03/12/2024 05:00 PM [facility]
--- OUTSIDE RECORDS SUMMARY | 2024-03-17 17:13 | XMS_ITS | Data Portability ---
Author Organization [facility] Address [address] [place] [id number] Assessment Encounter Date Assessment Date Assessment LastModified by Organization Details LastModified Time 05/17/2023 05/17/2023 Patient agreed and verbally consents to this audio and video Telehealth appt via a secure platform [email or web address] Not available 05/17/2023 09:47:46 Plan of Treatment Reminders Order Date Submit Date Provider Last Modified By Organization Details Last Modified Time Details Appointments ANNUAL EXAM 2024 01:30P M JANETTE YODER Not available Not available Not available Lab CMP, serum or plasma 2023 024 [facility], [address] [place] [address], [id number], 11/15/2023 16:32:39 hemoglobi n A1c, QN, blood 2023 024 [facility], [address] [place] [address], [id number], 11/15/2023 16:32:39 lipid panel, serum 2023 024 [facility], [address] [place] [address], [id number], 11/15/2023 16:32:39 CBC w/ auto diff 2023 024 [facility], [address] [place] [address], [id number], 11/15/2023 16:32:39 T3, free, serum or plasma 2023 024 [facility], [address] [place] [address], [id number], 11/15/2023 16:25:01 tsi (thyroid- stimulati ng immunoglo bulin), serum 2023 024 [facility], [address] [place] [address], [id number], 11/15/2023 16:25:01 thyroid peroxidas e (tpo) Ab, serum 2023 024 [facility], [address] [place] [address], [id number], 11/15/2023 16:25:01 C reactive protein, QN, serum or plasma 2023 024 [facility], [address] [place] [address], [id number], 11/15/2023 16:25:00 ESR (erythroc yte sedimenta tion rate), blood 2023 024 [facility], [address] [place] [address], [id number], 11/15/2023 16:25:01 TSH + free T4, serum 2023 024 [facility], [address] [place] [address], [id number], 11/15/2023 16:25:01 TSH + free T4, serum 2023 024 [facility], [address] [place] [address], [id number], 11/15/2023 16:39:56 TSH + free T4, serum 2023 024 [facility], [place], [address], 12/11/2023 15:18:48 T3, free, serum or plasma 2023 024 [facility], [place], [address], 12/11/2023 15:18:48 Referral urologist referral - recent ER trip for R kidney stone 2023 024 [email or web address] Ascencion Sanches MD, [address] [place] [address] Stas Gusman, [place], [address], 05/20/2023 08:42:25 Procedures None recorded. Surgeries None recorded. Imaging XR, wrist, 3 or more view 2022 023 [email or web address] Not available 03/26/2023 08:28:25 XR, wrist, 3 or more view 2022 023 ANIL Not available 03/25/2023 15:37:41 XR, shoulder, 2 or more view 2022 023 ANIL Not available 03/25/2023 15:39:23 US, kidney 2023 024 [email or web address] [facility], [facility] [place], [address], 05/22/2023 10:18:20 Medication Orders mirtazapi ne 15 mg tablet 2022 023 [facility]/Pharmacy #2024, [address] [place], [address], 10/03/2022 09:08:21 Breo Ellipta 200 mcg-25 mcg/dose powder for inhalatio n 2022 023 [email or web address] [facility]/Pharmacy #5, [address] [place], [address], 03/20/2023 08:57:53 neomycin- polymyxin -hydrocor t 3.5 mg-10,000 unit/mL-1 % ear drops,[facility] p 2023 024 [facility] [address] [place], [address], 11/15/2023 16:22:17 meclizine 25 mg tablet 2023 024 [facility] [address] [place], [address], 11/15/2023 16:25:26 triamcino lone acetonide 0.1 % topical cream 2023 024 [facility] [address] [place], [address], 11/15/2023 16:31:44 prednison e 10 mg tablet 2023 024 [facility] [address] [place], [address], 12/11/2023 15:15:37 ciproflox acin 500 mg tablet 2023 024 [facility] [address] [place], [address], 12/11/2023 15:15:35 Patient TargetsNo targets recorded. Patient InstructionsNo instructions recorded. Reason for Referral Urologist Referral for Kidne y stone recent ER trip, has right sided kidney stone, 5 mm (previous urologist does not take her insurance) recent ER trip for R kidney stone Referring Physician: Kyra Recio, Internal Medicine, Encounter Date: 05/17/2023 Results Created Date Observation Date Name Description Value Unit Range Abnormal Flag Note LastModifiedBy Organization Detail LastModifiedTime 10/06/1910/05/2022 MAMMO reid, digit al, bilat eral No observ ation record ed. [facility] [address] [place], [address], 10/05/2022 09:13:11 03/25/2003/21/2023 XR, wrist , 3 or more view No observ ation record ed. [address], [address], 03/25/2023 15:54:38 03/25/20 23 03/21/2023 XR, wrist , 3 or more view No observ ation record ed. [address], [address], 03/25/2023 15:54:38 03/25/20 23 03/21/2023 XR, shoul brooke, 2 or more view No observ ation record ed. [address], [address], 03/25/2023 15:54:39 06/05/19 24 06/05/2023 US, kidne y No observ ation record ed. [email or web address] [facility] [address] [place], [address], 06/05/2023 16:03:12 07/18/19 24 07/17/2023 CT, chest , w/o contr ast No observ ation record ed. [email or web address] [facility] (Medical Records) [address] [place], [address], 07/19/2023 08:35:01 10/08/19 24 10/07/2023 MAMMO , scree tanesha, digit al, bilat eral No observ ation record ed. [email or web address] [address], [address], 10/08/2023 08:00:38 01/08/20 24 01/08/2024 CT, abdom en, w/wo contr ast No observ ation record ed. [email or web address] [facility] (Medical Records) [address] [place], [address], 01/08/2024 14:22:25 03/12/20 24 03/11/2024 US, retro perit oneum No observ ation record ed. [email or web address] [facility] (Medical Records) [address] [facility], [place], [address], 03/13/2024 08:25:53 Result Notes None recorded. Problems Name Problem SNOMED Code Status Onset Date Resolution Date Notes Provider Name and Address Organization Details Recorded Time Herpes simplex 77910598 Active 2017 Not Available [facility] 3 15:48:15 Generalize d anxiety disorder 17729553 Active 2021 Not Available [facility] 3 15:48:14 Pain of right shoulder joint 2839990205363 9100 Active 2022 JANETTE YODER [address],[place], [address] , [facility] 3 16:17:02 Bilateral wrist pain 1222913497130 9105 Active 2022 JANETTE YODER [address], [place], [address] , [facility] 3 16:17:21 Kidney stone 57220714 Active 2023 JANETTE YODER [address], [place], [address] , [facility] 4 09:47:06 Acute otitis media 0441350 Active 2023 JANETTE YODER [address], [place], [address] , [facility] 4 16:21:41 Hyperthyro idism 32824690 Active 2023 JANETTE YODER [address],[place], [address] , [facility] 4 16:23:01 Dizziness 353264694 Active 2023 JANETTE YODER [address],[place], [address] , [facility] 4 16:24:47 Acute otitis media 7727242 Active 2023 JANETTE YODER [address], [facility] [place], [address] , [facility] 4 15:12:09 Asthma 214421383 Active 2017 Not Available [facility] 3 15:48:14 Hypothyroi dism 14413739 Active 2017 Not Available [facility] 3 15:48:15 Fibromyalg ia 089551360 Active 2017 Not Available [facility] 3 15:48:14 Migraine 85850735 Active 2017 Not Available [facility] 3 15:48:14 Impaired fasting glycemia 992442012 Active 2017 Not Available [facility] 3 15:48:15 Angioedema 93251869 Active 2017 Not Available [facility] 3 15:48:15 Eczema 75827909 Active 2017 Not Available [facility] 3 15:48:15 Mixed hyperlipid emia 610103817 Active 2017 Not Available [facility] 3 15:48:14 Anxiety 43992463 Active 2017 Not Available [facility] 3 15:48:15 Problem Notes None recorded. Procedures Surgical History Date Name Laterality Status Provider Name and Address Organization Details Recorded Time 4 Cerumen Removal completed JANETTE YODER [address], [place], [address], [facility] 12/11/2023 15:17:59 4 Colonoscopy completed Herminio Lo DO [address], [place], [address], [facility] 05/27/2023 16:07:28 9 Most Recent Mammogram completed Gema Sotelo [facility] 10/20/2018 16:15:30 9 Colonoscopy completed Ana Queen [facility] 04/09/2018 09:59:35 Imaging Results Imaging Date Name Status LastModified by Organization Details LastModified Time 10/05/2022 MAMMO, screening, digital, bilateral completed [facility] [address] [place] [address], [address], 10/05/2022 09:13:11 03/21/2023 XR, wrist, 3 or more view completed [address], [address], 03/25/2023 15:54:38 03/21/2023 XR, wrist, 3 or more view completed [address], [address], 03/25/2023 15:54:38 03/21/2023 XR, shoulder, 2 or more view completed [address], [address], 03/25/2023 15:54:39 06/05/2023 US, kidney completed [address] [place], [address], 06/05/2023 16:03:12 07/17/2023 CT, chest, w/o contrast completed [email or web address] [place] [address] (Medical Records) [address] [place], [address], 07/19/2023 08:35:01 10/07/2023 MAMMO, screening, digital, bilateral completed [email or web address] [address], [address], 10/08/2023 08:00:38 01/08/2024 CT, abdomen, w/wo contrast [email or web address] [address] [place], [address], 01/08/2024 14:22:25 03/11/2024 US, retroperitoneum completed [address] (Medical Records) [address] [place], [address], 03/13/2024 08:25:53 Procedure Notes None recorded. Medical Equipment None Reported. Allergies Allergen ID Allergen Name Allergen Category Reaction Reaction Severity Criticality Documentation Date Start Date Code Code System Note Provider Name and Address Organization Details Recorded Time 1891 Medicinal product containin g penicilli n and acting as antibacte rial agent (product) medicatio n Not available Not available Not available 10/21/2017 [address] [facility]ema aguilar [facility] 8 16:05:19 1893 Substance with sulfonami de structure and antibacte rial mechanism of action (substanc e) medicatio n Not available Not available Not available 10/21/2017 [address] 8003 [facility] Gema aguilar [facility] 8 16:05:25 5814 lactose food,medi cation diarrhea severe Not available 10/02/2021 6211 RxNorm bleed ing recta lly Gladys Andrew [facility] 2 09:05:44 6992 Buspar medicatio n dizziness moderate Not available 10/03/2022 15970 0 RxNorm JANETTE YODER [address] [place], [address], [facility] 3 09:05:58 Medications Name Sig Start Date Stop Date Status Note LastModified by Organization Details LastModified Time first-stevan thwash blm suspensio n SWISH AND SPIT 20 ML BY MOUTH EVERY 4-6 HOURS DO NOT EAT OR DRINK FOR 30 MINUTES active Not Available Not Available No t Available pilocarpi ne 5 mg tablet Take 1 tablet 3 times a day by oral route for 42 days. 06/15 completed Not Available Not Available Not Available prednison e 10 mg tablet PLEASE SEE ATTACHED FOR DETAILED DIRECTIO NS active Not Available Not Available No t Available doxycycli ne hyclate 100 mg capsule 03/28 completed Not Available Not Available Not Available paroxetin e 10 mg tablet Take 1 tablet every day by oral route for 90 days. 07/05 completed Not Available Not Available Not Available erythromy anton 500 mg tablet TAKE 1 TABLET BY MOUTH TWICE DAILY UNTIL GONE 10/02 completed Not Available Not Available Not Available clindamyc in HCl 300 mg capsule 10/22 completed Not Available Not Available Not Available albuterol sulfate 2.5 mg/3 mL (0.083 %) solution for nebulizat ion Inhale 3 mL 3 times a day by nebuliza tion route for 90 days. 10/03 completed Not Available Not Available Not Available pravastat in 40 mg tablet TAKE 1 TABLET DAILY active Not Available Not Available No t Available Synthroid 125 mcg tablet TAKE 1 TABLET DAILY 10/03 completed 10/03/21 - advised to start taking 6 days a week Not Available Not Available Not Available rizatript an 10 mg tablet 10 mg PO x1 10/02 completed Not Available Not Available Not Available erythromy anton 500 mg tablet,de layed release TAKE 1 TABLET BY MOUTH TWICE DAILY 10/02 completed Not Available Not Available Not Available meclizine 12.5 mg tablet TAKE 2 TABLETS BY MOUTH 3 TIMES A DAY FOR 2 WEEKS 10/02 completed Not Available Not Available Not Available fluocinon alka 0.05 % topical ointment 03/28 completed Not Available Not Available Not Available ciproflox acin 250 mg tablet 10/22 completed Not Available Not Available Not Available valacyclo vir 500 mg tablet 04/23 completed Not Available Not Available Not Available ciproflox acin 500 mg tablet TAKE 1 TABLET BY MOUTH EVERY 12 HOURS FOR 7 DAYS active Not Available Not Available No t Available acetamino phen 500 mg tablet TAKE 1 TABLET BY MOUTH EVERY 4 TO 6 HOURS NEEDED active Not Available Not Available No t Available triamcino lone acetonide 0.1 % topical cream APPLY THIN COAT TO AFFECTED AREA TWICE A DAY active Not Available Not Available No t Available dexametha sone 0.5 mg/5 mL oral solution RINSE 1 TEASPOON (5ML) IN MOUTH FOR 1 MINUTE 4 TO 5 TIMES DAILY THEN SPIT OUT active Not Available Not Available No t Available alprazola m 0.25 mg tablet 10/02 completed Not Available Not Available Not Available clindamyc in 1 % topical gel 03/28 completed Not Available Not Available Not Available tamsulosi n 0.4 mg capsule TAKE 1 CAPSULE (0.4 MG TOTAL) BY MOUTH DAILY FOR 7 DAYS active Not Available Not Available No t Available meclizine 25 mg tablet TAKE 1 TABLET BY MOUTH THREE TIMES A DAY NEEDED FOR 14 DAYS active Not Available Not Available No t Available doxycycli ne monohydra te 100 mg capsule TAKE 1 CAPSULE BY MOUTH TWICE A DAY FOR 10 DAYS 03/19 completed Not Available Not Available Not Available hydrocodo ne 7.5 mg-acetam inophen 325 mg tablet 10/22 completed Not Available Not Available Not Available triamcino lone acetonide 0.1 % topical ointment APPLY TO AFFECTED AREA TWICE A DAY 03/19 completed Not Available Not Available Not Available cevimelin e 30 mg capsule Take 1 capsule 3 times a day by oral route for 90 days. 10/02 completed Not Available Not Available Not Available buspirone 10 mg tablet TAKE 1 TABLET BY MOUTH EVERY DAY 10/03 completed Not Available Not Available Not Available fluoxetin e 10 mg capsule TAKE 1 CAPSULE BY MOUTH EVERY DAY active Not Available Not Available No t Available Advair Diskus 500 mcg-50 mcg/dose powder for inhalatio n active Not Available Not Available Not Available betametha sone dipropion ate 0.05 % topical cream APPLY A THIN LAYER TO THE AFFECTED AREA(S) BY TOPICAL ROUTE ONCE DAILY 10/03 completed Not Available Not Available Not Available bisacodyl 5 mg tablet,de layed release TAKE 4 TABLETS ORALLY DIRECTED 1 DAY 03/19 completed Not Available Not Available Not Available pravastat in 20 mg tablet 10/22 completed Not Available Not Available Not Available Synthroid 112 mcg tablet TAKE 1 TABLET DAILY active Not Available Not Available No t Available mirtazapi ne 15 mg tablet TAKE 1 TABLET BY MOUTH EVERY DAY 2023 active Not Available Not Available Not Avai lable clobetaso l 0.05 % topical ointment 04/23 completed Not Available Not Available Not Available ibuprofen 600 mg tablet TAKE 1 TABLET BY MOUTH EVERY 6 TO 8 HOURS NEEDED active Not Available Not Available No t Available mirtazapi ne 15 mg disintegr ating tablet 1 po qd 2022 active Not Available Not Available Not Avai lable albuterol sulfate HFA 90 mcg/actua tion aerosol inhaler USE 2 INHALATI ONS EVERY 4 TO 6 HOURS NEEDED 04/12 completed Not Available Not Available Not Available carbidopa 25 mg-levodo pa 100 mg tablet TAKE 1 TABLET BY MOUTH THREE TIMES A DAY 10/02 completed Not Available Not Available Not Available fluocinon alka 0.05 % topical cream 10/22 completed Not Available Not Available Not Available ondansetr on 4 mg disintegr ating tablet TAKE 1 TABLET BY MOUTH EVERY 8 HOURS NEEDED active Not Available Not Available No t Available fluticaso ne propionat e 50 mcg/actua tion nasal spray,kaur pension [place] 1 spray every day by intranas al route for 90 days. 10/02 completed Not Available Not Available Not Available sertralin e 50 mg tablet TAKE 1 TABLET DAILY 06/16 completed Not Available Not Available Not Available oxycodone 5 mg tablet TAKE 1 TABLET EVERY 6 HOURS NEEDED FOR BREAKTHR OUGH PAIN. active Not Available Not Available No t Available neomycin- polymyxin -hydrocor t 3.5 mg-10,000 unit/mL-1 % ear drops,kaur p INSTILL 4 DROPS INTO AFFECTED EAR(S) 3 TIMES A DAY active Not Available Not Available No t Available Arestin 1 mg dental cartridge 03/28 completed Not Available Not Available Not Available mirtazapi ne 7.5 mg tablet TAKE 1 TABLET DAILY 10/03 completed Not Available Not Available Not Available nitrofura ntoin monohydra te/macroc rystals 100 mg capsule 10/22 completed Not Available Not Available Not Available Gas Relief Extra Strength 125 mg chewable tablet CHEW AND SWALLOW 3 TABLETS WHILE DRINKING THE SECOND DOSE OF PREP active Not Available Not Available No t Available levalbute rol HFA 45 mcg/actua tion aerosol inhaler INHALE 2 PUFFS BY MOUTH EVERY 6 HOURS FOR 30 DAYS 2023 active Not Available Not Available Not Avai lable Boostrix Tdap 2.5 Lf unit-8 mcg-5 Lf/0.5 mL intramusc ular syringe 09/26 completed Not Available Not Available Not Available chlorhexi dine gluconate 0.12 % mouthwash RINSE MOUTH WITH 15ML FOR 30 SECONDS IN MORNING AND EVENING AFTER BRUSHING SPIT DO NOT SWALLOW active Not Available Not Available No t Available GaviLyte- G 236 gram-22.7 4 gram-6.74 gram-5.86 gram oral solution TAKE 4000ML ORALLY DIRECTED 1 DAYS active Not Available Not Available No t Available Breo Ellipta 200 mcg-25 mcg/dose powder for inhalatio n INHALE 1 PUFF BY MOUTH DAILY active Not Available Not Available No t Available Yuvafem 10 mcg vaginal tablet 04/23 completed Not Available Not Available Not Available Flowflex COVID-19 Antigen Home Test kit FOLLOW INSTRUCT IONS INCLUDED WITH THE PACKAGE. 10/03 completed Not Available Not Available Not Available Paxlovid 300 mg (150 mg x 2)-100 mg tablets in a dose pack TAKE 3 TABLETS BY MOUTH TWICE DAILY FOR 5 DAYS 10/03 completed Not Available Not Available Not Available Vitals Date Recorded Body weight Body mass index (BMI) Body height Heart rate Oxygen saturation Oxygen saturation in Arterial blood by Pulse oximetry Systolic blood pressure Diastolic blood pressure Provider Name and Address Organization Details Last Updated DateTime 3 78119.0 7 g 35.6 kg/m2 160.02 cm 89 /min 97 % 97 % 140 mm[Hg] 80 mm[Hg] [facility] 3 09:03:19 Date Recorded Body height Body mass index (BMI) Body weight Heart rate Oxygen saturation Oxygen saturation in Arterial blood by Pulse oximetry Systolic blood pressure Diastolic blood pressure Provider Name and Address Organization Details Last Updated DateTime 3 160.02 cm 36.8 kg/m2 82931.2 1 g 76 /min 98 % 98 % 120 mm[Hg] 82 mm[Hg] Oma [facility] 3 16:05:23 Date Recorded Body height Body mass index (BMI) Body weight Heart rate Oxygen saturation Oxygen saturation in Arterial blood by Pulse oximetry Systolic blood pressure Diastolic blood pressure Provider Name and Address Organization Details Last Updated DateTime 4 160.02 cm 36.8 kg/m2 18788.2 1 g 78 /min 95 % 95 % 130 mm[Hg] 80 mm[Hg] [facility] 4 15:30:45 Date Recorded Body height Provider Name an d Address Organization Details Last Updated DateTime 12/11/2023 160.02 cm Radha Kim [facility] 12/11/2023 14:32:14 Date Recorded Heart rate Oxygen saturation Oxygen saturation in Arterial blood by Pulse oximetry Systolic blood pressure Diastolic blood pressure Provider Name and Address Organization Details Last Updated DateTime 4 75 /min 95 % 95 % 120 mm[Hg] 68 mm[Hg] Lisa Parhamjesika [facility]ANSEN [facility] 4 14:47:31 Social History Question Answer Notes LastModified by Organizat ion Details LastModified Time Tobacco Smoking Status Former Smoker Not Available [facility] 03:36:23 What Is Your Level Of Alcohol Consumption? Occasional Information not available 03/28/2020 Are You Blind Or Do You Have Difficulty Seeing? No Information not available 03/28/2020 What Is Your Level Of Caffeine Consumption? Occasional Information not available 03/28/2020 How Much Tobacco Do You Chew? None Information not available 03/28/2020 Are You Currently Employed? Yes Information not available 03/28/2020 Are You Deaf Or Do You Have Serious Difficulty Hearing? No Information not available 03/28/2020 What Type Of Diet Are You Following? REGULAR Information not available 03/28/2020 Which Illicit Or Recreational Drugs Have You Used? 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 4 Information not available 03/28/2020 Are There Any Guns Present In Your Home? Yes Information not available 03/28/2020 Hard Of Hearing Or Deaf In One Or Both Ears? No Information not available 05/17/2023 Live Alone Or With Others? With Others Information not available 05/17/2023 What Was The Date Of Your Most Recent Tobacco Screening? 12/11/2023 [email or web address] Information not available 12/11/2023 How Many Children Do You Have? 0 Information not available 03/28/2020 Performs Monthly Self-breast Exam? Yes Information not available 05/17/2023 Seat Belts Used Routinely Yes Information not available 05/17/2023 Are You Sexually Active? Yes Information not available 03/28/2020 Smoke Alarm In Home Yes Information not available 05/17/2023 Are You Passively Exposed To Smoke? No Information not available 03/28/2020 How Much Tobacco Do You Smoke? No Information not available 03/28/2020 General Stress Level Low Information not available 05/17/2023 Do You Use Sunscreen Routinely? Yes Information not available 03/28/2020 How Many Years Have You Smoked Tobacco? 25 Information not available 03/28/2020 Do You Or Have You Ever Used Any Other Forms Of Tobacco Or Nicotine? No Information not available 05/17/2023 Sex: Unknown Functional Status Question Answer Note LastModified by Organizat ion Details LastModified Time Do you have difficulty walking or climbing stairs? No Information not available 03/28/2020 Are you able to walk? YESWOREST Information not available 03/28/2020 Do you have difficulty doing errands alone? No Information not available 03/28/2020 Are you able to care for yourself? Yes Information not available 03/28/2020 Do you have difficulty dressing or bathing? No Information not available 03/28/2020 What is your exercise level? Occasional Information not available 03/28/2020 Mental Status Question Answer Note LastModified by Organization D etails LastModified Time Do you have difficulty concentrating, remembering or making decisions? No Information no t available 03/28/2020 Family History Relationship Description Onset Age of this Age Resolved Age Notes LastModified by Organization Details LastModified Time Father Chronic obstructive pulmonary disease 79 [email or web address] Not available 2019 09:43:26 Father Seizure sbucko Not available 09:43:26 Father Asthma sbucko Not available 09:43:26 Sister Chronic obstructive pulmonary disease sbucko Not available 2019 09:43:26 Medical History Condition Response Coronary Artery Disease N Other N Gout N Kidney Stones N Blood Diseases N Breast Cancer N Blood Transfusion N Depression N COPD N Lung Disease N Defects or Inherited Disease N Anxiety Disorder N Muscle, Joint, or Bone Problems N Obesity N Vision or Eye Problems N Arthritis N Polyps N Infertility N Mental Disorder N Cancer N Varicosities N Stroke N Endometriosis N Bladder or Kidney Problems N High Cholesterol Y Liver Disease N Headaches Y Fibromyalgia Y Kidney Disease N Allergies/Hayfever N Heart Problems N Hospitalizations N Thyroid Problems Y GI Problems N Skin Problems N Eating Disorder N Anemia N MRSA exposure N Constipation N Mental Illness N Ovarian Cancer N Diabetes N Seizures/Epilepsy N Tuberculosis N Congestive Heart Failure (CHF) N Eczema N Diverticulitis N Abuse/Domestic Violence N Asthma Y Reflux/GERD N Hepatitis N Heart Disease N Pulmonary Embolism N Hypertension N Chicken Pox N Autism Spectrum Disorder (ASD) N Osteoporosis N Gynecological History Statement/Question Response Most Recent Mammogram 04/14/2018 Obstetrics History GPAL:G 0 P 0 0 0 0 Immunizations Vaccine Type Date Status Provider Name and Address Organization Details Recorded Time Influenza, split virus, quadrivalent, preservative 01/05/2021 [place], [address], [facility] 05/17/2023 09:14:29 COVID-19, mRNA, LNP-S, PF, 30 mcg/0.3 mL dose 01/05/2021 [place], [address], [facility] 05/17/2023 09:14:29 Influenza, split virus, quadrivalent, preservative 12/07/2017 [place], [address], [facility] 05/17/2023 09:14:29 Influenza, split virus, trivalent, preservative 12/07/2018 completed Not Available [facility] 06/17/2020 17:46:43 Influenza, split virus, quadrivalent, preservative 12/08/2019 [place], [address], [facility] 05/17/2023 09:14:29 COVID-19, mRNA, LNP-S, PF, 30 mcg/0.3 mL dose 03/29/2020 completed JANETTE YODER [address],[place], [address], [facility] 05/17/2023 09:14:29 COVID-19, mRNA, LNP-S, PF, 30 mcg/0.3 mL dose 04/21/2020 completed JANETTE YODER [address] [place] [address], [phone], [facility] 05/17/2023 09:14:29 zoster recombinant 07/03/2020 JANETTE Moya [address] [place] [address], [phone], [facility] 05/17/2023 09:14:29 Past Encounters Encounter ID Performer Location Encounter Start Date Encounter Closed Date Diagnosis/Indication Diagnosis SNOMED-CT Code Diagnosis ICD10 Code [id number] [address] 10/22/2017 08:55:47 10/22/2017 09:52:36 Asthma 133671698 J45.909 Impaired f asting glycemia 058562516 R73.01 Hypothyroidism 23731846 E03.9 Migraine 66012630 G43.90 9 Mixed hyperlipidemia 267 227887 E78.2 Anxiety 88615217 F41.9 Chronic tremor 381722826 R25.1 Arthralgia of the ankle and/or foot 430542358 M25.[id number] [address] 04/23/2018 08:46:59 04/23/2018 09:23:20 Anxiety 26419738 F41.9 Mixed hyperlipidemia 267 732413 E78.2 Asthma 951110474 J45.90 9 Impaired f asting glycemia 523715927 R73.01 Hypothyroidism 91469797 E03.9 Active or passive immunization 838645656 Z23 Body mass index 30+ - obesity 429421051 Z68.35 Migraine 37326639 G43.90 9 Vitamin D deficiency 347 34441 E55.9 [id number] [facility] [address] [address] 10/21/2018 13:20:55 10/21/2018 16:04:51 Adult health examination 384766597 Z00.00 Active or passive immunization 260446134 Z23 Anxiety 35039806 F41.9 Mixed hyperlipidemia 267 344287 E78.2 Asthma 963641520 J45.90 9 Impaired f asting glycemia 134118392 R73.01 Hypothyroidism 52557851 E03.9 Seasonal a llergic rhinitis 797189350 J30.2 Eczema 11787513 L30.9 Skin lesion 29063014 L98 .9 [id number] July JAYE Milner [facility] [address] [place] [address] 05/06/2019 13:20:00 05/06/2019 14:00:04 Asthma 369208063 J45.909 Anxiety 87348378 F41.9 Mixed hyperlipidemia 267 600177 E78.2 Impaired f asting glycemia 110518622 R73.01 Hypothyroidism 94882222 E03.9 Seasonal a llergic rhinitis 703286570 J30.2 Eczema 65507032 L30.9 Allergy to penicillin 91 700849 Z88.0 [id number] JANETTE YODER [facility] [address] [place] [id number] 03/28/2020 09:40:30 03/28/2020 11:18:40 Hypothyroidism 86617090 E03.9 Eczema 22200097 L30.9 [id number] JANETTE YODER [facility] [address] [place] [address] 09/28/2020 08:55:13 09/28/2020 09:30:16 Active or passive immunization 408615855 Z23 Adult heal th examination 192059645 Z00.00 Easy bruising 322895183 R58 Menopausal flushing 1983 56448 N95.1 [id number] JANETTE YODER [facility] [address] [place] [address] 10/02/2021 08:59:55 10/02/2021 14:01:44 Active or passive immunization 086869848 Z23 Adult heal th examination 286878927 Z00.00 [id number] JANETTE YODER [facility] [address] [place] [address],[place] [address] 10/03/2022 08:52:12 10/03/2022 09:21:28 Active or passive immunization 353583700 Z23 Adult heal th examination 448387959 Z00.00 Anxiety 97039431 F41.1 [id number] JANETTE YODER [facility] [address] [place] [address],[place] [address] 03/19/2023 15:55:26 03/20/2023 08:31:40 Pain of right shoulder joint 0950858952 3175823 M25.511 Bilateral wrist pain 416 0363925 0681010 M25.531 Asthma 615340300 J45.21 [id number] JANETTE YODER [facility] [address] [place] [address],[place] [address] 05/17/2023 09:14:09 05/20/2023 08:42:25 Kidney stone 44307212 N20.0 [id number] JANETTE YODER [facility] [address] [place] [address],[place] [address] 11/15/2023 15:12:39 11/18/2023 08:14:00 Acute otitis media 5014863 H65.03 Hyperthyroidism 64448569 E05.90 Adult heal th examination 616509580 Z00.00 Dizziness 022402124 R42 Impaired f asting glycemia 604686785 R73.01 Eczema 77633767 L30.9 [id number] JANETTE YODER [facility] [address] [place] [address],[place] [address] 12/11/2023 14:23:26 12/11/2023 16:11:32 Acute otitis media 8395884 H65.03 Hypothyroidism 01426458 E03.8 Health Concerns Section Related Observation LastModified by Organization Detai ls LastModified Time None Recorded Concern Status LastModified by Organization Details LastModified Time None Recorded Advance Directives Directive None Recorded Payers Encounter Date Sequence Insurance Name Policy Number Policy Linder Covered Member ID Linder Member ID Guarantor Name 10/03/2022 1 [employer] [facility] (POS) [id number] Jaja Gonzalez [id number] Jaja Gonzalez 03/19/2023 1 [facility] (O) Jaja Gonzalez [id number] Jaja Gonzalez 05/17/2023 1 [facility] (O) Jaja Gonzalez [id number] Jaja Gonzalez 11/15/2023 1 [facility] [id number] Jaja Whitakerk [id number] Jaja Gonzalez 12/11/2023 1 [facility]) [id number] Jaja Whitakerk [id number] Jaja Gonzalez Notes Date Note Type Note Provider Name and Address Organization Details Recorded Time 3 text/htm l Annual WellnessReported bypatient.Diet and Nutrition:healthy diet; discussed vitamin and supplement use; discussed portion control; discussed maintaining calcium balance; discussed diet improvement Fracture Risk:no history of fractures; no recent explained fracture; no sudden unexplained fractures; no previous musculoskeletal injuries; left wrist > still feels odd, does get some tingling discussed how the bone repairs itself...possible nerve damage from the actual break Physical Activity:exercises on a regular basis; recent increase in physical activity; good physical condition; discussed weightbearing activities; discussed exercise habits Additional Lifestyle Factors:no tobacco use; drinks alcohol (mild-moderate) Depression Risk:never feels sad, empty, or tearful; no loss of interest in activities; no significant changes in weight; no sleep disturbances or insomnia; no agitation; no loss of energy; no feelings of worthlessness or guilt; no thoughts of suicide; no history of depression; no history of mood disorders Hearing:no loss of hearing Vision:no vision problems the patient still mildly congested from having COVID a month out JANETTE YODER [address] [place] [address], [phone], [facility] 10/03/2022 09:21:15 3 text/htm l c/o right shoulder, bilateral wrist right shoulder pain and bilateral wrist swelling and discomfortthe patient reports good ROM, but feels discomfort and a snapping sensationthe patient reports weather changed triggerswrist pain, L wristsome loss of ROM in her wrist, numbness in the finger tips of her index and middle finger tingling with median nerve compressionsupraspinatus and bicep tendon tenderness and palpation JANETTE YODER [address] [place], [address], [facility] 03/19/2023 16:23:51 4 text/htm l ER f/u The patient is participating in this appointment via telemedicine communication with a phone call/video calling service ([employer])The patient consents to use of these platforms in place of an in-person appointment due to either sick symptoms the patient is presenting with or current office closure due to COVID exposure in order to keep our office staff and patients safe the patient reports that she was in the ER recently for flank pain and dry heaving in relation to an obstructive right 5 mm kidney stone in the urethrahas a urologist and hx of kidney stones, however when she called her urologist they do not take her insurance, had to go to the ER will need new US ordered through our office since she had to cancel the f/u one since Dr. Mcgee ordered itnew referral sent in to Dr. Sanches who takes her insurancewill fax results urinating appropriatelystaying hydratedno pain currentlyno hematuriano nauseano fever finished the tamsulosinwill monitor patient in the interim between switching urologists JANETTE YODER [address] [place], [address], [facility] 05/17/2023 09:55:27 4 text/htm l Annual WellnessReported bypatient.Diet and Nutrition:healthy diet; discussed vitamin and supplement use; discussed portion control; discussed maintaining calcium balance; discussed diet improvement Fracture Risk:no history of fractures; no recent explained fracture; no sudden unexplained fractures; no previous musculoskeletal injuries Physical Activity:exercises on a regular basis; recent increase in physical activity; good physical condition Additional Lifestyle Factors:no tobacco use; no alcohol intake; stopped drinking alcohol Depression Risk:never feels sad, empty, or tearful; no loss of interest in activities; no significant changes in weight; no sleep disturbances or insomnia; no agitation; no loss of energy; no feelings of worthlessness or guilt; no thoughts of suicide; no history of depression; no history of mood disorders Hearing:no loss of hearing Vision:no vision problems JANETTE YODER [address] [place], [address], [facility] 11/15/2023 16:32:31 4 text/htm l Ear Pain Brief HPIReported bypatient.Location:right Onset/Timing:recent ear infections; recurrent episode; started 4weeks ago; getting worse Duration:occurs daily; constant pain Quality:throbbing pain;aching pain Severity:no fever; able to perform daily activities; no interference with sleep; current pain 07/16 Context:no recent URI; no recent trauma; no recent swimming; no arthritis; no immunocompromise; no dental problems; no recent airplane travel; no scuba diving; non-smoker;recent ear infection Alleviating factors:nothing gives relief Aggravating factors:worse when allergies are active; worse with chewing Associated Symptoms:no vertigo; no jaw popping or clicking; no temporomandibular joint disease; no discharge from ear; no nasal congestion; no nasal discharge; no hearing loss; no sense of fullness; no sore throat; no dental pain; no jaw pain JANETTE YODER [address] [place], [address], [facility] 12/11/2023 15:23:44 OBGyn Episode No OBEpisode recorded.
== END 2024-03-11 09:36 | disposition home or self-care (01) ==
LOC: HO.US 09:35
PROVIDERS: PCP Internal Medicine; Visit Provider Urology
DX: N13.30 Unspecified hydronephrosis (principal); N20.1 Calculus of ureter
CPT/HCPCS: 76770

== ENCOUNTER 2024-03-18 13:41 | Outpatient (AMB) | payer OTHER, SELFPAY ==
--- NOTE | 2024-03-18 13:41 | A.OFFVIS_ITS ---
Intake Visit Reasons: 3w/US Intake Note: Patient is present for 3 weeks follow up U/S Urology Med: None Antibiotic Allergy: Penicillins Blood Thinner: None Patient Symptoms: Denies any symptoms [employer] Required: No Allergies Penicillins Allergy (Mild, Verified 03/18/24 13:50) Unknown HPI Comments Details: 03/18/24--LV 02/21/24--Serena has been asymptomatic. Persistent right hydronephosis on fu renal us 03/11/24. recommend cystoscopy ureteroscopy, stent. Review of chart: 02/21/2024--I have reviewed CT findings: 01/08/24 with the patient which noticed a ureteral stone. The patient states she has no kidney pain or urinary symptoms. I will check an ultrasound kidney and bladder to fu hydronephrosis and ureteral stone, no enhancing renal mass noted. CTAT w/wo IV contrast- 01/07/34--There is a 6 mm obstructing calculus in the mid right ureter with moderate right hydroureteronephrosis. no suspicious renal mass. 07/26/2023--Serena has a history of kidney stones. She was initially evaluated on 06/11/2023. I discussed metabolic workup and she completed 24 hour urine on 07/02/2023. Discussed 24 hour urine results: Total volume 1.37 L, Calcium 82 mg; Oxalate 22 mg, Sodium 126, Citrate 522 mg. Instructed on importance of fluid intake, discussed increasing fluid intake to [address] imaging without IV contrast completed on 07/17/2023 which noted a indeterminate renal mass. Plan repeat CT with and without IV contrast follow-up in 6 months. 07/17/2023-- CTAP: Right kidney revealed speckled calcifications in the lower pole questionably associated with mass. nonobstructing 0.6 cm stone lower pole. Left kidney is unremarkable. 06/11/23--Serena is a 58-year-old female here for new patient evaluation. She has a history of kidney stones for about 4-5 years. She states that her prior urologist no longer takes her insurance. The patient states that on 05/07/[address] scan due to right flank pain. She has a report on her phone that I have reviewed. (office will have report faxed to my attention) The report indicated mild right hydronephrosis with 5 mm distal ureteral stone and other nonobstructing right kidney stones. Left kidney within normal limits. The patient had follow-up imaging with an ultrasound. The patient states that she no longer has pain. She denies any irritative voiding symptoms. I reviewed renal ultrasound report dated 06/05/2023-- right hydronephrosis, moderate, minimal cortical scarring as seen on prior CT on 05/07/2023 for left kidney within normal limits. Discussed re-evaluation with CT abdomen and pelvis without IV contrast. Diet sheet provided and reviewed with information regarding recommendations to reduce kidney stone production. She states that she is on a high-protein diet for weight management. Discussed 24 hour urine collection to be obtained. Follow up in 6 weeks [facility] Medical History Hx of mammogram Mixed hyperlipidemia Angioedema Migraine Fibromyalgia Hypothyroid Asthma Anxiety Impaired fasting blood sugar Surgical History Hx of colonoscopy Family History Father No problems noted. Mother No problems noted. Social History Alcohol intake: current Alcohol intake frequency: holidays/special occasions only Patient Tobacco Use Status: Never used Tobacco Review of Systems Const All systems reviewed & are unremarkable except as noted in HPI and below Reports no additional complaints Eyes Reports no additional complaints ENT Reports no additional complaints Card Reports no additional complaints Resp Reports no additional complaints GI Reports no additional complaints Reports as per HPI Musc Reports no additional complaints Skin/Breast Reports system reviewed and no additional complaints, except as documented Neuro Reports no additional complaints Psych Reports no additional complaints Endo Reports no additional complaints James/Lymph Reports no additional complaints Aller/Immun Reports no additional complaints Telehealth Telehealth Telehealth Platform: [facility] Location of provider rendering services: practice address Location of patient: address on file Patient Identification confirmed using: Name, : Yes Telehealth method: video Patient verbally consented to treatment: Yes Patient verbally consented to billing insurance company: Yes Patient informed of any privacy concerns related to visit: Yes Results Reviewed Results Reviewed: Date of Service: 03/11/24 US RETROPERITONEAL COMPLETE (RENAL) CLINICAL INFORMATION: Hydronephrosis. COMPARISON: CT abdomen January 08, 2024 TECHNIQUE: Real-time imaging of the kidneys and bladder. FINDINGS: RIGHT KIDNEY: 10.9 x 5 x 5.3 cm (SAG x AP x TRV). The kidney is normal in size, contour, and echogenicity. Renal cortical thickness is normal. Moderate right hydronephrosis. LEFT KIDNEY: 10.6 x 5.1 x 5.8 cm (SAG x AP x TRV). The kidney is normal in size, contour, and echogenicity. Renal cortical thickness is normal. No calculi or focal parenchymal lesions. No hydronephrosis. BLADDER: Well distended and normal. Bilateral ureteral jets are demonstrated. Prevoid bladder volume is 406 mL. Postvoid volume is 16.5 mL. IMPRESSION: Moderate right-sided hydronephrosis. Date of Service: 01/08/24 CT ABDOMEN WITHOUT AND WITH CONTRAST CLINICAL INFORMATION: Renal mass COMPARISON: None available. TECHNIQUE: Contiguous axial thin section helical images of the abdomen were performed before and after the administration of 85 mL of Omnipaque 350 intravenous contrast. The data set was reformatted in the coronal and sagittal planes and reviewed on an independent workstation. This CT examination was performed using dose optimization techniques as appropriate, variously including the following: *Automated exposure control *Adjustment of mA and/or kV according to patient size (this includes techniques or standardized protocols for targeted exams where dose is matched to indication/reason for exam; i.e. extremities or head) *Use of iterative reconstruction technique DLP: 511 mGy-cm FINDINGS: LUNG BASES: Clear LIVER, GALLBLADDER, AND BILIARY TREE: Mild diffuse fatty infiltration of the liver. No focal liver lesion. No intrahepatic biliary ductal dilatation. PANCREAS: Normal SPLEEN: Normal ADRENAL GLANDS AND KIDNEYS: Normal adrenal glands. There is a 6 mm obstructing calculus in the mid right ureter with moderate hydroureteronephrosis. At the anterior aspect of the lower pole of the right kidney, there is a 1.6 cm area of cortical thinning and retraction with multiple small calcifications with no definite enhancing mass. This may represent an area of prior surgery or a remote infarct or site of infection. The left kidney appears normal. BOWEL LOOPS: Visualized small and large bowel loops are unremarkable. LYMPH NODES: Normal. VASCULAR: Scattered atherosclerotic calcifications of the abdominal aorta. BONES: Unremarkable IMPRESSION: 1. There is a 6 mm obstructing calculus in the mid right ureter with moderate right hydroureteronephrosis. 2. There is a 1.6 cm area of cortical thinning and retraction at the anterior aspect of the lower pole of the right kidney with multiple small calcifications with no definite enhancing mass. This may represent an area of prior surgery or a remote infarct or site of infection. 3. Mild fatty infiltration of the liver. Date of Service: 07/17/23 EXAMINATION: CT ABDOMEN AND PELVIS WITHOUT CONTRAST CLINICAL INFORMATION: Hydronephrosis COMPARISON: None available. TECHNIQUE: Multidetector volumetric imaging was performed from the superior aspect of the liver through the pubic symphysis. Sagittal and coronal reformatted images were obtained on the technologist's workstation. This CT examination was performed using dose optimization techniques as appropriate, variously including the following: *Automated exposure control *Adjustment of mA and/or kV according to patient size (this includes techniques or standardized protocols for targeted exams where dose is matched to indication/reason for exam; i.e. extremities or head) *Use of iterative reconstruction technique DLP: 585 mGy-cm FINDINGS: LUNG BASES: The visualized lung bases are unremarkable. LIVER, GALLBLADDER, AND BILIARY TREE: Liver is of low attenuation due to hepatic steatosis and enlarged The gallbladder is unremarkable with no evidence of radiopaque gallstones, gallbladder wall thickening, or obvious pericholecystic inflammatory changes. PANCREAS: Unremarkable. SPLEEN: Unremarkable. ADRENAL GLANDS: Unremarkable. KIDNEYS AND URETERS: 4 harding BLADDER: Bladder is decompressed without stones or masses GASTROINTESTINAL TRACT: The small and large bowel are unremarkable. The appendix is unremarkable. ABDOMINAL WALL: No significant hernia is appreciated. LYMPH NODES: Normal. VASCULAR: Unremarkable. PELVIC VISCERA: Unremarkable. OSSEOUS STRUCTURES: Unremarkable. IMPRESSION: 1. Right nephrolithiasis without hydroureteronephrosis. 2. Questionable mass in the lower pole of the right kidney associated with calcifications. Correlate with IV enhanced CT scan or/and ultrasound 3. Hepatic steatosis and hepatomegaly. Assessment & Plan Assessment & Plan (1) Renal calculi: Code(s): N20.0 - Calculus of kidney Category: Medical (2) Hydronephrosis, right: Code(s): N13.30 - Unspecified hydronephrosis Category: Medical (3) Ureteral stone: Code(s): N20.1 - Calculus of ureter Category: Medical Plan cysto, Right ureteroscopy laser lithotripsy stent Patient Instructions: The patient had an opportunity to ask questions regarding treatment plan. The p atient expressed understanding and agreement with the above treatment plan. The patient is aware they should contact our office by phone for worsening of their current condition or the appearance of new symptoms. Compliance is encouraged with any medications and followup testing that is ordered. It is a privilege to be allowed the opportunity to participate in the urologic care of your patient. If you have any questions or concerns regarding treatment for the above conditions please do not hesitate to contact me. The office telephone contact is [phone]. This note is constructed in part using voice recognition software. While every effort has been made to ensure accuracy cigar packer and sorter errors may have been included. Yours sincerely, Amber Blanco MD Coding Level of Care Code Tele Est Pt Level 4 (69354) Diagnoses Renal calculi N20.0 Hydronephrosis, right N13.30 Ureteral stone N20.1
--- OUTSIDE RECORDS SUMMARY | 2024-03-19 02:33 | XMS_ITS | Data Portability ---
Author Organization [facility], Home Service Address [address] [place] [address] Assessment Encounter Date Assessment Date Assessment LastModified [...] available Lab CMP, serum or plasma 2023 [facility], [address] [place] [address], [address], 11/15/2023 16:32:39 hemoglobi n A1c, QN, blood 2023 024 [facility], [address] [place] [address], [address], 11/15/2023 16:32:39 lipid panel, serum 2023 024 [facility], [address] [place] [address], [address], 11/15/2023 16:32:39 CBC w/ auto diff 2023 024 [facility], [address] [place] [address], [address], 11/15/2023 16:32:39 T3, free, serum or plasma 2023 024 [facility], [address] [place] [address], [address], 11/15/2023 16:25:01 tsi (thyroid- stimulati ng immunoglo bulin), serum 2023 024 [facility], [address] [place] [address], [address], 11/15/2023 16:25:01 thyroid peroxidas e (tpo) Ab, serum 2023 024 [facility], [address] [place] [address], [address], 11/15/2023 16:25:01 C reactive protein, QN, serum or plasma 2023 024 [facility], [address] [place] [address], [address], 11/15/2023 16:25:00 ESR (erythroc yte sedimenta tion rate), blood 2023 024 [facility], [address] [place] [address], [address], 11/15/2023 16:25:01 TSH + free T4, serum 2023 024 [facility], [address] [place] [address], [address], 11/15/2023 16:25:01 TSH + free T4, serum 2023 024 [facility], [address] [place] [address], [address], 11/15/2023 16:39:56 TSH + free T4, serum 2023 024 [facility], [place], [address], 12/11/2023 15:18:48 T3, free, serum or plasma 2023 024 [facility], [place], [address], 12/11/2023 15:18:48 Referral urologist referral - recent ER trip for R kidney stone 2023 024 [email or web address] Ascencion Sanches MD, [address] [place] [address] Stas Gusman, [place], [address], 05/20/2023 08:42:25 Procedures None recorded. Surgeries None recorded. Imaging XR, wrist, 3 or more view 2022 023 [email or web address] Not available 03/26/2023 08:28:25 XR, wrist, 3 or more view 2022 023 ANIL Not available 03/25/2023 15:37:41 XR, shoulder, 2 or more view 2022 023 ANIL Not available 03/25/2023 15:39:23 US, kidney 2023 024 [email or web address] [facility] [place], [address], 05/22/2023 10:18:20 Medication Orders mirtazapi ne 15 mg tablet 2022 023 [facility]acy #2024, [address] [place], [address], 10/03/2022 09:08:21 Breo Ellipta 200 mcg-25 mcg/dose powder for inhalatio n 2022 023 [email or web address] [facility]/Ph[facility]acy #5, [address] [place], [address], 03/20/2023 08:57:53 neomycin- polymyxin -hydrocor t 3.5 mg-10,000 unit/mL-1 % ear drops,kaur p 2023 024 [facility] [address] [place], [address], 11/15/2023 16:22:17 meclizine 25 mg tablet 2023 024 [facility] [address] [place], [address], 11/15/2023 16:25:26 triamcino lone acetonide 0.1 % topical cream 2023 024 [facility] [address] [place], [address], 11/15/2023 16:31:44 prednison e 10 mg tablet 2023 024 [facility] [address] [place], [address], 12/11/2023 15:15:37 ciproflox acin 500 mg tablet 2023 024 [facility] [address] [place], [address], 12/11/2023 15:15:35 Patient TargetsNo targets recorded. Patient [...] Abnormal Flag Note LastModifiedBy Organization Detail LastModifiedTime 10/06/19 23 10/05/2022 MAMMO , reid almendarez, digit al, bilat eral No observ ation record ed. [facility] [address] [place], [address], 10/05/2022 09:13:11 03/25/20 23 03/21/2023 XR, wrist , 3 or more view No observ ation record ed. [address], [address], 03/25/2023 15:54:38 03/25/20 23 03/21/2023 XR, wrist , 3 or more view No observ ation record ed. [address], [address], 03/25/2023 15:54:38 03/25/20 23 03/21/2023 XR, shoul brooke, 2 or more view No observ ation record ed. [address], [address], 03/25/2023 15:54:39 06/05/19 24 06/05/2023 US, matt y No observ ation record ed. [facility] [address] [place], [address], 06/05/2023 16:03:12 07/18/19 24 07/17/2023 CT, chest , w/o contr ast No observ ation record ed. [email or web address] [facility] (Medical Records) [address] [place], [address], 07/19/2023 08:35:01 10/08/19 24 10/07/2023 MAMMO , scree tanesha, digit al, bilat eral No observ ation record ed. [email or web address] [address], [address], 10/08/2023 08:00:38 01/08/20 24 01/08/2024 CT, abdom en, w/wo contr ast No observ ation record ed. [email or web address] [facility] (Medical Records) [address] [place], [address], 01/08/2024 14:22:25 12/08/26 2303/11/2024 US, retro perit oneum No observ ation record ed. [email or web address] [facility] (Medical Records) [address] [facility], [place], [address], 03/13/2024 08:25:53 Result Notes None recorded. Problems Name Problem SNOMED Code Status Onset Date Resolution Date Notes Provider Name and Address Organization Details Recorded Time Herpes simplex 58566866 Active 2017 Not Available [facility] 3 15:48:15 Generalize d anxiety disorder 86328926 Active 2021 Not Available [facility] 3 15:48:14 Pain of right shoulder joint 6045922775374 9100 Active 2022 JANETTE YODER [address],[place], [address] , [facility] 3 16:17:02 Bilateral wrist pain 9820037204513 9105 Active 2022 JANETTE YODER [address],[place], [address] , [facility] 3 16:17:21 Kidney stone 28776400 Active 2023 JANETTE YODER [address],[place], [address] , [facility] 4 09:47:06 Acute otitis media 4776981 Active 2023 JANETTE YODER [address],[place], [address] , [facility] 4 16:21:41 Hyperthyro idism 29959879 Active 2023 JANETTE YODER [address],[place], [address] , [facility] 4 16:23:01 Dizziness 776244637 Active 2023 JANETTE YODER [address],[place], [address] , [facility] 4 16:24:47 Acute otitis media 1981533 Active 2023 JANETTE YODER [address], [place], [address] , [facility] 4 15:12:09 Asthma 253326419 Active 2017 Not Available [facility] 3 15:48:14 Hypothyroi dism 92740373 Active 2017 Not Available [facility] 3 15:48:15 Fibromyalg ia 577088694 Active 2017 Not Available [facility] 3 15:48:14 Migraine 54787980 Active 2017 Not Available [facility] 3 15:48:14 Impaired fasting glycemia 790417884 Active 2017 Not Available [facility] 3 15:48:15 Angioedema 14541057 Active 2017 Not Available [facility] 3 15:48:15 Eczema 49358423 Active 2017 Not Available [facility] 3 15:48:15 Mixed hyperlipid emia 478165611 Active 2017 Not Available [facility] 3 15:48:14 Anxiety 19340919 Active 2017 Not Available [facility] 3 15:48:15 Problem Notes None recorded. Procedures Surgical History Date Name Laterality Status Provider Name and Address Organization Details Recorded Time 4 Cerumen Removal completed JANETTE YODER [address], [place], [address], [facility] 12/11/2023 15:17:59 4 Colonoscopy completed Herminio Lo DO [address], [place], [address], [facility] 05/27/2023 16:07:28 9 Most Recent Mammogram completed Gema Sotelo [facility] 10/20/2018 16:15:30 9 Colonoscopy completed Ana Queen [facility] 04/09/2018 09:59:35 Imaging Results Imaging Date Name Status LastModified by Organization Details LastModified Time 10/05/2022 MAMMO, screening, digital, [email or web address] [address] [place] [address], [address], 10/05/2022 09:13:11 03/21/2023 XR, wrist, 3 or more view completed [address], [address], 03/25/2023 15:54:38 03/21/2023 XR, wrist, 3 or more view completed [address], [address], 03/25/2023 15:54:38 03/21/2023 XR, shoulder, 2 or more view completed [address], [address], 03/25/2023 15:54:39 06/05/2023 US, kidney completed [address] [place], [address], 06/05/2023 16:03:12 07/17/2023 CT, chest, w/o contrast completed [email or web address] [place] [address] (Medical Records) [address] [place] [address], [address], 07/19/2023 08:35:01 10/07/2023 MAMMO, screening, digital, bilateral completed [email or web address] [address], [address], 10/08/2023 08:00:38 01/08/2024 CT, abdomen, w/wo contrast [email or web address] [address] [place], [address], 01/08/2024 14:22:25 03/11/2024 US, retroperitoneum completed [address] (Medical Records) [address] [place], [address], 03/13/2024 08:25:53 Procedure Notes None recorded. Medical Equipment None Reported. Allergies Allergen ID Allergen Name Allergen Category Reaction Reaction Severity Criticality Documentation Date Start Date Code Code System Note Provider Name and Address Organization Details Recorded Time 1891 Medicinal product containin g penicilli n and acting as antibacte rial agent (product) medicatio n Not available Not available Not available 10/21/2017 32567 05 [facility] 8 16:05:19 1893 Substance with sulfonami de structure and antibacte rial mechanism of action (substanc e) medicatio n Not available Not available Not available 10/21/2017 24797 8003 [facility] 8 16:05:25 5814 lactose food,medi cation diarrhea severe Not available 10/02/2021 6211 RxNorm bleed ing recta lly Gladys Kamran [facility] 2 09:05:44 6992 Buspar medicatio n dizziness moderate Not available 10/03/2022 39162 0 RxNorm JANETTE YODER [address] [place], [address], [facility] 3 09:05:58 Medications Name Sig Start [...] e 50 mcg/actua tion nasal spray,kaur pension [place] 1 spray every day by intranas al [...] Address Organization Details Last Updated DateTime 3 79865.0 7 g 35.6 kg/m2 160.02 cm 89 /min 97 % 97 % 140 mm[Hg] 80 mm[Hg] Lisa Conley [facility] 3 09:03:19 Date Recorded Body height Body mass index (BMI) Body weight Heart rate Oxygen saturation Oxygen saturation in Arterial blood by Pulse oximetry Systolic blood pressure Diastolic blood pressure Provider Name and Address Organization Details Last Updated DateTime 3 160.02 cm 36.8 kg/m2 79296.2 1 g 76 /min 98 % 98 % 120 mm[Hg] 82 mm[Hg] Oma Sarmiento [facility] 3 16:05:23 Date Recorded Body height Body mass index (BMI) Body weight Heart rate Oxygen saturation Oxygen saturation in Arterial blood by Pulse oximetry Systolic blood pressure Diastolic blood pressure Provider Name and Address Organization Details Last Updated DateTime 4 160.02 cm 36.8 kg/m2 23745.2 1 g 78 /min 95 % 95 % 130 mm[Hg] 80 mm[Hg] Lisa Conley [facility] 4 15:30:45 Date Recorded Body height Provider Name an d Address Organization Details Last Updated DateTime 12/11/2023 160.02 cm Radha Rex [facility] 12/11/2023 14:32:14 Date Recorded Heart rate Oxygen saturation Oxygen saturation in Arterial blood by Pulse oximetry Systolic blood pressure Diastolic blood pressure Provider Name and Address Organization Details Last Updated DateTime 4 75 /min 95 % 95 % 120 mm[Hg] 68 mm[Hg] Lisa Parhamjesika [facility] 4 14:47:31 Social History Question Answer Notes LastModified by Organizat ion Details LastModified Time Tobacco Smoking Status Former Smoker Not Available [facility] 02/09/2020 03:36:23 What Is Your Level Of [...] Artery Disease N Other N Gout N Blood Diseases N Kidney Stones N Blood Transfusion N Breast Cancer N Depression N COPD N Lung Disease N Defects or Inherited Disease N Anxiety Disorder N Muscle, Joint, or Bone Problems N Obesity N Vision or Eye Problems N Arthritis N Polyps N Infertility N Mental Disorder N Cancer N Varicosities N Stroke N Endometriosis N Bladder or Kidney Problems N High Cholesterol Y Liver Disease N Fibromyalgia Y Headaches Y Kidney Disease N Allergies/Hayfever N Heart [...] Disease N Pulmonary Embolism N Hypertension N Osteoporosis N Chicken Pox N Autism Spectrum Disorder (ASD) N Gynecological History Statement/Question Response Most Recent Mammogram 04/14/2018 Obstetrics History GPAL:G 0 P 0 0 0 0 Immunizations Vaccine Type Date Status Note Provider Nam e and Address Organization Details Recorded Time Influenza, split virus, quadrivalent, preservative 1 [place], [address], [facility] 05/17/2023 09:14:29 COVID-19, mRNA, LNP-S, PF, 30 mcg/0.3 mL dose 1 completed JANETTE YODER [address] [place] [address], [address], [facility] 05/17/2023 09:14:29 Influenza, split virus, quadrivalent, preservative 8 [place], [address], [facility] 05/17/2023 09:14:29 Influenza, split virus, trivalent, preservative 9 completed Not Available [facility] 06/17/2020 17:46:43 Influenza, split virus, quadrivalent, preservative 0 completed JANETTE YODER [address] [place] [address], [address], [facility] 05/17/2023 09:14:29 COVID-19, mRNA, LNP-S, PF, 30 mcg/0.3 mL dose 0 completed JANETTE YODER [address] [place] [address],[place], [address], [facility] 05/17/2023 09:14:29 COVID-19, mRNA, LNP-S, PF, 30 mcg/0.3 mL dose 1 completed JANETTE YODER [address] [place] [address], [address], [facility] 05/17/2023 09:14:29 zoster recombinant 1 completed JANETTE YODER [address] [place] [address], [address], [facility] 05/17/2023 09:14:29 Past Encounters Encounter ID Performer Location Encounter Start Date Encounter Closed Date Diagnosis/Indication Diagnosis SNOMED-CT Code Diagnosis [facility]10 [id number] [address] 10/22/2017 08:55:47 10/22/2017 09:52:36 Asthma 350088876 J45.909 Impaired f asting glycemia 524765377 R73.01 Hypothyroidism 50896648 E03.9 Migraine 49954434 G43.90 9 Mixed hyperlipidemia 267 536375 E78.2 Anxiety 12977926 F41.9 Chronic tremor 258470086 R25.1 Arthralgia of the ankle and/or foot 642476895 M25.579 [id number] [facility] [address] [address] 04/23/2018 08:46:59 04/23/2018 09:23:20 Anxiety 80478171 F41.9 Mixed hyperlipidemia 267 913049 E78.2 Asthma 413678178 J45.90 9 Impaired f asting glycemia 771553348 R73.01 Hypothyroidism 65898445 E03.9 Active or passive immunization 827143592 Z23 Body mass index 30+ - obesity 789689965 Z68.35 Migraine 71301307 G43.90 9 Vitamin D deficiency 347 97751 E55.9 [id number] [facility] [place] [address] 10/21/2018 13:20:55 10/21/2018 16:04:51 Adult health examination 602936866 Z00.00 Active or passive immunization 736327728 Z23 Anxiety 77794965 F41.9 Mixed hyperlipidemia 267 360111 E78.2 Asthma 264778338 J45.90 9 Impaired f asting glycemia 998869424 R73.01 Hypothyroidism 34993635 E03.9 Seasonal a llergic rhinitis 771983267 J30.2 Eczema 44485186 L30.9 Skin lesion 65669448 L98 .9 [id number] July JAYE Milner [address] [address] 05/06/2019 13:20:00 05/06/2019 14:00:04 Asthma 723118775 J45.909 Anxiety 63996469 F41.9 Mixed hyperlipidemia 267 686026 E78.2 Impaired f asting glycemia 981823490 R73.01 Hypothyroidism 12238822 E03.9 Seasonal a llergic rhinitis 015887905 J30.2 Eczema 72792389 L30.9 Allergy to penicillin 91 188325 Z88.0 [id number] JANETTE YODER [address] [address] 03/28/2020 09:40:30 03/28/2020 11:18:40 Hypothyroidism 61885130 E03.9 Eczema 40643118 L30.9 [id number] JANETTE YODER [address] [address] 09/28/2020 08:55:13 09/28/2020 09:30:16 Active or passive immunization 142302582 Z23 Adult heal th examination 616289100 Z00.00 Easy bruising 408721684 R58 Menopausal flushing 1984 90552 N95.1 [id number] JANETTE YODER [address] [address] 10/02/2021 08:59:55 10/02/2021 14:01:44 Active or passive immunization 139868679 Z23 Adult heal th examination 035502033 Z00.00 [id number] JANETTE YODER [address],[facility] [place] [address] 10/03/2022 08:52:12 10/03/2022 09:21:28 Active or passive immunization 870727617 Z23 Adult heal th examination 575953961 Z00.00 Anxiety 97955646 F41.1 [id number] JANETTE YODER [address],[facility] [place] [address] 03/19/2023 15:55:26 03/20/2023 08:31:40 Pain of right shoulder joint 0601235521 8236059 M25.511 Bilateral wrist pain 482 0874790 8134325 M25.531 Asthma 041747970 J45.21 [id number] JANETTE YODER [address],[place] [address] 05/17/2023 09:14:09 05/20/2023 08:42:25 Kidney stone 89538637 N20.0 [id number] JANETTE YODER [address],[place] [address] 11/15/2023 15:12:39 11/18/2023 08:14:00 Acute otitis media 3487358 H65.03 Hyperthyroidism 72254364 E05.90 Adult heal th examination 202290655 Z00.00 Dizziness 117688007 R42 Impaired f asting glycemia 673644786 R73.01 Eczema 29806337 L30.9 [id number] JANETTE YODER [address],[facility] [place] [address] 12/11/2023 14:23:26 12/11/2023 16:11:32 Acute otitis media 5827296 H65.03 Hypothyroidism 14361289 E03.8 Health Concerns Section Related Observation LastModified by Organization Detai ls LastModified Time None Recorded Concern Status LastModified by Organization Details LastModified Time None Recorded Advance Directives Directive None Recorded Payers Encounter Date Sequence Insurance Name Policy Number Policy Linder Covered Member ID Linder Member ID Guarantor Name 10/03/2022 1 [facility] (POS) [id number] Jaja Gonzalez [id number] Jaja Gonzalez 03/19/2023 1 [facility] (O) Jaja Gonzalez [id number] Jaja Gonzalez 05/17/2023 1 [facility] (O) Jaja Gonzalez [id number] Jaja Gonzalez 11/15/2023 1 [facility] [id number] Jaja Whitakerk [id number] Jaja Gonzalez 12/11/2023 1 [facility] ([facility]) [id number] Jaja Whitakerk [id number] Jaja Gonzalez Notes Date Note Type Note [...] having COVID a month out JANETTE YODER [address] [place] [address], [address], [facility] 10/03/2022 09:21:15 3 [...] tendon tenderness and palpation JANETTE YODER [address] [place], [address], [facility] 03/19/2023 16:23:51 4 text/htm l ER f/u The patient is participating in this appointment via telemedicine communication with a phone call/video calling service (Doxy)The patient consents to use of these platforms [...] interim between switching urologists JANETTE YODER [address] [facility] [address], [place], [address], [facility] 05/17/2023 09:55:27 4 text/htm [...] hearing Vision:no vision problems JANETTE YODER [address] [place], [address], [facility] 11/15/2023 16:32:31 4 text/htm l [...] pain; no jaw pain JANETTE YODER [address] [place], [address], [facility] 12/11/2023 15:23:44 OBGyn Episode No OBEpisode recorded.
== END 2024-03-18 15:00 | disposition home or self-care (01) ==
LOC: HO.HUSH 13:41
PROVIDERS: PCP Internal Medicine; Visit Provider Urology
DX: N20.0 Calculus of kidney (principal); N13.30 Unspecified hydronephrosis; N20.1 Calculus of ureter
CPT/HCPCS: 99214

== ENCOUNTER → 2024-03-18 13:41 | Outpatient (BNVA) | payer OTHER, SELFPAY | PROVIDERS: PCP Internal Medicine; Visit Provider Urology ==

== ENCOUNTER 2024-04-07 09:43 | Day surgery (SDC) | payer OTHER, SELFPAY ==
--- OUTSIDE RECORDS SUMMARY | 2024-03-25 11:26 | XMS_ITS | Data Portability ---
Author Organization [facility], Home Service Address [address] [place] [address] Assessment Encounter Date Assessment Date Assessment LastModified [...] available Lab CMP, serum or plasma 2023 [facility], [address] [place] [address], [id number], 11/15/2023 16:32:39 hemoglobi n A1c, QN, blood 2023 024 [facility], [address] [place] [address], [address], 11/15/2023 16:32:39 lipid panel, serum 2023 024 [facility], [address] [place] [address], [address], 11/15/2023 16:32:39 CBC w/ auto diff 2023 024 [facility], [address] [place] [address], [address], 11/15/2023 16:32:39 T3, free, serum or plasma 2023 024 [facility], [address] [place] [address], [address], 11/15/2023 16:25:01 tsi (thyroid- stimulati ng immunoglo bulin), serum 2023 024 [facility], [address] [place] [address], [address], 11/15/2023 16:25:01 thyroid peroxidas e (tpo) Ab, serum 2023 024 [facility], [address] [place] [address], [address], 11/15/2023 16:25:01 C reactive protein, QN, serum or plasma 2023 024 [facility], [address] [place] [address], [address], 11/15/2023 16:25:00 ESR (erythroc yte sedimenta tion rate), blood 2023 024 [facility], [address] [place] [address], [address], 11/15/2023 16:25:01 TSH + free T4, serum 2023 024 [facility], [address] [place] [address], [address], 11/15/2023 16:25:01 TSH + free T4, serum 2023 024 [facility], [address] [place] [address], [address], 11/15/2023 16:39:56 TSH + free T4, serum 2023 024 [facility], [place], [address], 12/11/2023 15:18:48 T3, free, serum or plasma 2023 024 [facility], [place], [address], 12/11/2023 15:18:48 Referral urologist referral - recent ER trip for R kidney stone 2023 024 [email or web address] Ascencion Sanches MD, [address] [place] [address] Stas Gusman, [place], [address], 05/20/2023 08:42:25 Procedures None recorded. Surgeries None recorded. Imaging XR, wrist, 3 or more view 2022 023 [email or web address] Not available 03/26/2023 08:28:25 XR, wrist, 3 or more view 2022 023 ANIL Not available 03/25/2023 15:37:41 XR, shoulder, 2 or more view 2022 023 ANIL Not available 03/25/2023 15:39:23 US, kidney 2023 024 [email or web address] [facility], [facility] [place], [address], 05/22/2023 10:18:20 Medication Orders mirtazapi ne 15 mg tablet 2022 023 [facility] #2024, [address] [place], [address], 10/03/2022 09:08:21 Breo Ellipta 200 mcg-25 mcg/dose powder for inhalatio n 2022 023 [email or web address] [facility]/Pharmacy #5, [address] [place], [address], 03/20/2023 08:57:53 neomycin- polymyxin -hydrocor t 3.5 mg-10,000 unit/mL-1 % ear drops,kaur p 2023 024 [facility] [address] [place], [address], 11/15/2023 16:22:17 meclizine 25 mg tablet 2023 024 [facility] [address] [place], [address], 11/15/2023 16:25:26 triamcino lone acetonide 0.1 % topical cream 2023 024 [facility] [address] [place], [address], 11/15/2023 16:31:44 prednison e 10 mg tablet 2023 024 [facility] [address] [place], [address], 12/11/2023 15:15:37 ciproflox acin 500 mg tablet 2023 024 [facility] [address] [place], [address], 12/11/2023 15:15:35 Patient TargetsNo targets recorded. Patient [...] bilat eral No observ ation record ed. [facility] [address] [place], [address], 10/05/2022 09:13:11 03/25/20 23 03/21/2023 XR, wrist , 3 or more view No observ ation record ed. [address], [address], 03/25/2023 15:54:38 03/25/20 23 03/21/2023 XR, wrist , 3 or more view No observ ation record ed. [address], [address], 03/25/2023 15:54:38 03/25/20 23 03/21/2023 XR, shoul brooke, 2 or more view No observ ation record ed. [address], [address], 03/25/2023 15:54:39 06/05/19 24 06/05/2023 US, matt y No observ ation record ed. [email or web address] [facility] [address] [place], [address], 06/05/2023 16:03:12 07/18/19 24 07/17/2023 CT, chest , w/o contr ast No observ ation record ed. [facility] (Medical Records) [address] [place], [address], 07/19/2023 08:35:01 10/08/19 24 10/07/2023 MAMMO , scree tanesha, digit al, bilat eral No observ ation record ed. [email or web address] [address], [address], 10/08/2023 08:00:38 01/08/20 24 01/08/2024 CT, abdom en, w/wo contr ast No observ ation record ed. [email or web address] [facility] (Medical Records) [address] [place], [address], 01/08/2024 14:22:25 12/08/26 2303/11/2024 US, retro perit oneum No observ ation record ed. [email or web address] [facility] (Medical Records) [address] [facility], [place], [address], 03/13/2024 08:25:53 Result Notes None recorded. Problems Name Problem SNOMED Code Status Onset Date Resolution Date Notes Provider Name and Address Organization Details Recorded Time Herpes simplex 10602231 Active 2017 Not Available [facility] 3 15:48:15 Generaliz ed anxiety disorder 21658674 Active 2021 Not Available [facility] 3 15:48:14 Pain of right shoulder joint 952814339930 24919 Active 2022 JANETTE YDOER [address] [place] [address], [address], [facility] 3 16:17:02 Bilateral wrist pain 874840742445 53597 Active 2022 JANETTE YODER [address] [place] [address], [address], [facility] 3 16:17:21 Kidney stone 19810850 Active 2023 JANETTE YODER [address] [place] [address], [address], [facility] 4 09:47:06 Acute otitis media 0243415 Active 2023 JANETTE YODER [address] [place] [address], [address], [facility] 4 16:21:41 Hyperthyr oidism 06970971 Active 2023 JANETTE YODER [address] [place] [address], [address], [facility] 4 16:23:01 Dizziness 333579812 Active 2023 JANETTE YODER [address] [place] [address], [address], [facility] 4 16:24:47 Acute otitis media 7754246 Active 2023 JANETTE YODER [address] [place], [address], [facility] 4 15:12:09 Asthma 152041086 Active 2017 Not Available [facility] 3 15:48:14 Hypothyro idism 96476546 Active 2017 Not Available [facility] 3 15:48:15 Fibromyal maggie 883657854 Active 2017 Not Available [facility] 3 15:48:14 Migraine 96733069 Active 2017 Not Available [facility] 3 15:48:14 Impaired fasting glycemia 919504796 Active 2017 Not Available [facility] 3 15:48:15 Angioedem a 31179387 Active 2017 Not Available [facility] 3 15:48:15 Eczema 10534143 Active 2017 Not Available [facility] 3 15:48:15 Mixed hyperlipi demia 198481088 Active 2017 Not Available [facility] 3 15:48:14 Anxiety 75266904 Active 2017 Not Available [facility] 3 15:48:15 Problem Notes None recorded. Procedures Surgical History Date Name Laterality Status Provider Name and Address Organization Details Recorded Time 12/11/19 24 Cerumen Removal completed JANETTE YODER [address] [place] [address], [address], [facility] 12/11/2023 15:17:59 05/27/19 24 Colonoscopy completed Herminio Lo DO [address] [place], [address], [facility] 05/27/2023 16:07:28 04/14/19 19 Most Recent Mammogram completed Gema Sotelo [facility] 10/20/2018 16:15:30 04/09/19 19 Colonoscopy completed Ana Queen [facility] 04/09/2018 09:59:35 Imaging Results Imaging Date Name Status LastModified by Organization Details LastModified Time 10/05/2022 MAMMO, screening, digital, [email or web address] [address] [place] [address], [address], 10/05/2022 09:13:11 03/21/2023 XR, wrist, 3 or more view completed [address], [address], 03/25/2023 15:54:38 03/21/2023 XR, wrist, 3 or more view completed [address], [address], 03/25/2023 15:54:38 03/21/2023 XR, shoulder, 2 or more view completed [address], [address], 03/25/2023 15:54:39 06/05/2023 US, kidney completed [email or web address] [place], [address], 06/05/2023 16:03:12 07/17/2023 CT, chest, w/o contrast completed [email or web address] [place] [address] (Medical Records) [address] [place], [address], 07/19/2023 08:35:01 10/07/2023 MAMMO, screening, digital, bilateral completed [email or web address] [address], [address], 10/08/2023 08:00:38 01/08/2024 CT, abdomen, w/wo [facility] [address] [place], [address], 01/08/2024 14:22:25 03/11/2024 US, retroperitoneum completed [address] (Medical Records) [address] [place], [address], 03/13/2024 08:25:53 Procedure Notes None recorded. Medical Equipment None Reported. Allergies Allergen ID Allergen Name Allergen Category Reaction Reaction Severity Criticality Documentation Date Start Date Code Code System Note Provider Name and Address Organization Details Recorded Time 1891 Medicinal product containin g penicilli n and acting as antibacte rial agent (product) medicatio n Not available Not available Not available 10/21/2017 45870 05 [facility] Gema aguilar [facility] 8 16:05:19 1893 Substance with sulfonami de structure and antibacte rial mechanism of action (substanc e) medicatio n Not available Not available Not available 10/21/2017 97147 8003 [facility] Gema aguilar [facility] 8 16:05:25 5814 lactose food,medi cation diarrhea severe Not available 10/02/2021 6211 RxNorm bleed ing recta lly Gladys aguilar [facility] 2 09:05:44 6992 Buspar medicatio n dizziness moderate Not available 10/03/2022 28823 0 RxNorm JANETTE YODER [address] [place], [address], [facility] 3 09:05:58 Medications Name Sig Start [...] e 50 mcg/actua tion nasal spray,kaur pension [place] 1 spray every day by intranas al [...] Address Organization Details Last Updated DateTime 3 01294.0 7 g 35.6 kg/m2 160.02 cm 89 /min 97 % 97 % 140 mm[Hg] 80 mm[Hg] Lisa Conley [facility] 3 09:03:19 Date Recorded Body height Body mass index (BMI) Body weight Heart rate Oxygen saturation Oxygen saturation in Arterial blood by Pulse oximetry Systolic blood pressure Diastolic blood pressure Provider Name and Address Organization Details Last Updated DateTime 3 160.02 cm 36.8 kg/m2 33263.2 1 g 76 /min 98 % 98 % 120 mm[Hg] 82 mm[Hg] Oma Sarmiento [facility] 3 16:05:23 Date Recorded Body height Body mass index (BMI) Body weight Heart rate Oxygen saturation Oxygen saturation in Arterial blood by Pulse oximetry Systolic blood pressure Diastolic blood pressure Provider Name and Address Organization Details Last Updated DateTime 4 160.02 cm 36.8 kg/m2 93128.2 1 g 78 /min 95 % 95 % 130 mm[Hg] 80 mm[Hg] Lisa Conley [facility] 4 15:30:45 Date Recorded Body height Provider Name an d Address Organization Details Last Updated DateTime 12/11/2023 160.02 cm Radha Goodman [facility] 12/11/2023 14:32:14 Date Recorded Heart rate Oxygen saturation Oxygen saturation in Arterial blood by Pulse oximetry Systolic blood pressure Diastolic blood pressure Provider Name and Address Organization Details Last Updated DateTime 4 75 /min 95 % 95 % 120 mm[Hg] 68 mm[Hg] Lisa Yeh [facility] 4 14:47:31 Social History Question Answer Notes LastModified by Organizat ion Details LastModified Time Tobacco Smoking Status Former Smoker Not Available [facility] 02/09/2020 03:36:23 What Is Your Level Of [...] virus, quadrivalent, preservative 1 completed JANETTE YODER [address] [place] [address], [address], [facility] 05/17/2023 09:14:29 COVID-19, mRNA, LNP-S, PF, 30 mcg/0.3 mL dose 1 completed JANETTE YODER [address] [place] [address], [address], [facility] 05/17/2023 09:14:29 Influenza, split virus, quadrivalent, preservative 8 completed JANETTE YODER [address] [place] [address], [address], [facility] 05/17/2023 09:14:29 Influenza, split virus, trivalent, preservative 9 completed Not Available [facility] 06/17/2020 17:46:43 Influenza, split virus, quadrivalent, preservative 0 completed JANETTE YODER [address] [place] [address], [address], [facility] 05/17/2023 09:14:29 COVID-19, mRNA, LNP-S, PF, 30 mcg/0.3 mL dose 0 completed JANETTE YODER [address] [place], [address], [facility] 05/17/2023 09:14:29 COVID-19, mRNA, LNP-S, PF, 30 mcg/0.3 mL dose 1 completed JANETTE YODER [address] [place], [address], [facility] 05/17/2023 09:14:29 zoster recombinant 1 completed JANETTE YODER [address] [place], [address], [facility] 05/17/2023 09:14:29 Past Encounters Encounter ID Performer Location Encounter Start Date Encounter Closed Date Diagnosis/Indication Diagnosis SNOMED-CT Code Diagnosis ICD10 Code [id number] [facility] [address] [place] [address] [place] [address] 10/22/2017 08:55:47 10/22/2017 09:52:36 Asthma 585664616 J45.909 Impaired f asting glycemia 448162687 R73.01 Hypothyroidism 17017867 E03.9 Migraine 55311360 G43.90 9 Mixed hyperlipidemia 267 312174 E78.2 Anxiety 57159575 F41.9 Chronic tremor 283385007 R25.1 Arthralgia of the ankle and/or foot 944936261 M25.[id number] [place] [address] 04/23/2018 08:46:59 04/23/2018 09:23:20 Anxiety 69961469 F41.9 Mixed hyperlipidemia 267 063970 E78.2 Asthma 732033057 J45.90 9 Impaired f asting glycemia 187054012 R73.01 Hypothyroidism 20686976 E03.9 Active or passive immunization 790366927 Z23 Body mass index 30+ - obesity 705560278 Z68.35 Migraine 77060994 G43.90 9 Vitamin D deficiency 347 55281 E55.9 [id number] [facility] [address] [place] [address] [place] [address] 10/21/2018 13:20:55 10/21/2018 16:04:51 Adult health examination 719717151 Z00.00 Active or passive immunization 641458703 Z23 Anxiety 85209355 F41.9 Mixed hyperlipidemia 267 934728 E78.2 Asthma 065556670 J45.90 9 Impaired f asting glycemia 325475799 R73.01 Hypothyroidism 59354729 E03.9 Seasonal a llergic rhinitis 502523857 J30.2 Eczema 38985478 L30.9 Skin lesion 09747257 L98 .9 [id number] July JAYE Milner [facility] [address] [facility] [place] [address] 05/06/2019 13:20:00 05/06/2019 14:00:04 Asthma 895145699 J45.909 Anxiety 78041247 F41.9 Mixed hyperlipidemia 267 206054 E78.2 Impaired f asting glycemia 592928418 R73.01 Hypothyroidism 17238481 E03.9 Seasonal a llergic rhinitis 369616472 J30.2 Eczema 60945288 L30.9 Allergy to penicillin 91 939109 Z88.0 [id number] JANETTE YODER [facility] [address] [facility] [place] [address] 03/28/2020 09:40:30 03/28/2020 11:18:40 Hypothyroidism 92305318 E03.9 Eczema 71901553 L30.9 [id number] JANETTE YODER [facility] [address] [facility] [place] [address] 09/28/2020 08:55:13 09/28/2020 09:30:16 Active or passive immunization 389426228 Z23 Adult heal th examination 895101859 Z00.00 Easy bruising 040978154 R58 Menopausal flushing 1983 15456 N95.1 [id number] JANETTE YODER [facility] [address] [facility] [place] [address] 10/02/2021 08:59:55 10/02/2021 14:01:44 Active or passive immunization 173604607 Z23 Adult heal th examination 722277593 Z00.00 [id number] JANETTE YODER [facility] [address] [facility] [address] 10/03/2022 08:52:12 10/03/2022 09:21:28 Active or passive immunization 639453286 Z23 Adult [facility] examination 756862529 Z00.00 Anxiety 12962719 F41.1 [id number] JANETTE YODER [facility] [address] [facility] [address] 03/19/2023 15:55:26 03/20/2023 08:31:40 Pain of right shoulder joint 6241655483 7563578 M25.511 Bilateral wrist pain 357 2256414 7653429 M25.531 Asthma 241231235 J45.21 [id number] JANETTE YODER [facility] [address] [place] [address],[place] [address] 05/17/2023 09:14:09 05/20/2023 08:42:25 Kidney stone 64244533 N20.0 [id number] JANETTE YODER [facility] [address] [facility] [address] 11/15/2023 15:12:39 11/18/2023 08:14:00 Acute otitis media 2077141 H65.03 Hyperthyroidism 83470467 E05.90 Adult [facility] examination 602439744 Z00.00 Dizziness 448132108 R42 Impaired f asting glycemia 736268868 R73.01 Eczema 82955205 L30.9 [id number] JANETTE YODER [facility] [address] [facility] [address] 12/11/2023 14:23:26 12/11/2023 16:11:32 Acute otitis media 3823573 H65.03 Hypothyroidism 77966240 E03.8 Health Concerns Section Related Observation LastModified by Organization Detai ls LastModified Time None Recorded Concern Status LastModified by Organization Details LastModified Time None Recorded Advance Directives Directive None Recorded Payers Encounter Date Sequence Insurance Name Policy Number Policy Linder Covered Member ID Linder Member ID Guarantor Name 10/03/2022 1 [facility] (POS) [id number] Jaja Gonzalez [id number] Jaja Gonzalez 03/19/2023 1 [facility] (O) Jaja Gonzalez [id number] Jaja Gonzalez 05/17/2023 1 [facility] (HMO) Jaja Gonzalez [id number] Jaja Gonzalez 11/15/2023 1 [employer] (O) [id number] Jaja Gonzalez [id number] Jaja Gonzalez 12/11/2023 1 [facility] (O) [id number] Jaja Whitakerk [id number] Jaja Gonzalez Notes Date Note Type Note Provider Name and Address Organization Details Recorded Time 10/04/19 23 text/htm l Annual WellnessReported bypatient.Diet and Nutrition:healthy [...] having COVID a month out JANETTE YODER [address] [place] [address], [address], [facility] 10/03/2022 09:21:15 03/19/20 23 text/htm l c/o right shoulder, bilateral wrist [...] bicep tendon tenderness and palpation JANETTE YODER [address] [place], [address], [facility] 03/19/2023 16:23:51 05/17/19 24 text/htm l ER f/u The patient is participating in this appointment via telemedicine communication with a phone call/video calling service ([employer])The patient consents to use of these platforms [...] the interim between switching urologists JANETTE YODER [address] [place], [address], [facility] 05/17/2023 09:55:27 11/15/19 24 text/htm l Annual WellnessReported bypatient.Diet and Nutrition:healthy [...] of hearing Vision:no vision problems JANETTE YODER [address] [place] [address], [address], [facility] 11/15/2023 16:32:31 12/11/19 24 text/htm l Ear Pain Brief HPIReported bypatient.Location:right [...] dental pain; no jaw pain JANETTE YODER [address] [place] [address], [address] 12/11/2023 15:23:44 OBGyn Episode No OBEpisode recorded.
--- OUTSIDE RECORDS SUMMARY | 2024-04-07 09:47 | XMS_ITS | Data Portability ---
Author Organization [facility], Home Service Address [address] [place] [address] Assessment Encounter Date Assessment Date Assessment LastModified [...] available Lab CMP, serum or plasma 2023 [facility], [address] [place] [address], [address], 11/15/2023 16:32:39 hemoglobi n A1c, QN, blood 2023 024 [facility], [address] [place] [address], [address], 11/15/2023 16:32:39 lipid panel, serum 2023 024 [facility], [address] [place] [address], [address], 11/15/2023 16:32:39 CBC w/ auto diff 2023 024 [facility], [address] [place] [address], [address], 11/15/2023 16:32:39 T3, free, serum or plasma 2023 024 [facility], [address] [place] [address], [address], 11/15/2023 16:25:01 tsi (thyroid- stimulati ng immunoglo bulin), serum 2023 024 [facility], [address] [place] [address], [address], 11/15/2023 16:25:01 thyroid peroxidas e (tpo) Ab, serum 2023 024 [facility], [address] [place] [address], [address], 11/15/2023 16:25:01 C reactive protein, QN, serum or plasma 2023 024 [facility], [address] [place] [address], [address], 11/15/2023 16:25:00 ESR (erythroc yte sedimenta tion rate), blood 2023 024 [facility], [address] [place] [address], [address], 11/15/2023 16:25:01 TSH + free T4, serum 2023 024 [facility], [address] [place] [address], [address], 11/15/2023 16:25:01 TSH + free T4, serum 2023 024 [facility], [address] [place] [address], [address], 11/15/2023 16:39:56 TSH + free T4, serum 2023 024 [facility], [place], [address], 12/11/2023 15:18:48 T3, free, serum or plasma 2023 024 [facility], [place], [address], 12/11/2023 15:18:48 Referral urologist referral - recent ER trip for R kidney stone 2023 024 [email or web address] Ascencion Sanches MD, [address] [place] [address] Stas Gusman, [place], [address], 05/20/2023 08:42:25 Procedures None recorded. Surgeries None recorded. Imaging XR, wrist, 3 or more view 2022 023 [email or web address] Not available 03/26/2023 08:28:25 XR, wrist, 3 or more view 2022 023 ANIL Not available 03/25/2023 15:37:41 XR, shoulder, 2 or more view 2022 023 ANIL Not available 03/25/2023 15:39:23 US, kidney 2023 024 [email or web address] [facility], [facility] [place], [address], 05/22/2023 10:18:20 Medication Orders mirtazapi ne 15 mg tablet 2022 023 [facility]/Pharmacy #2024, [address] [place], [address], 10/03/2022 09:08:21 Breo Ellipta 200 mcg-25 mcg/dose powder for inhalatio n 2022 023 [email or web address] [facility]/Pharmacy #5, [address] [place], [address], 03/20/2023 08:57:53 neomycin- polymyxin -hydrocor t 3.5 mg-10,000 unit/mL-1 % ear drops,kaur p [address] [facility] [address] [place], [address], 11/15/2023 16:22:17 meclizine [address] [facility] [address] [place], [address], 11/15/2023 16:25:26 triamcino lone acetonide 0.1 % topical cream [address] [facility] [address] [place], [address], 11/15/2023 16:31:44 prednison e [address] [facility] [address] [place], [address], 12/11/2023 15:15:37 ciproflox acin 500 [address] [facility] [address] [place], [address], 12/11/2023 15:15:35 Patient TargetsNo targets recorded. Patient [...] bilat eral No observ ation record ed. [facility] [address] [place], [address], 10/05/2022 09:13:11 03/25/20 23 03/21/2023 XR, wrist , 3 or more view No observ ation record ed. [address], [address], 03/25/2023 15:54:38 03/25/20 23 03/21/2023 XR, wrist , 3 or more view No observ ation record ed. [address], [address], 03/25/2023 15:54:38 03/25/20 23 03/21/2023 XR, shoul brooke, 2 or more view No observ ation record ed. [address], [address], 03/25/2023 15:54:39 06/05/19 24 06/05/2023 US, matt y No observ ation record ed. [facility] [address] [place], [address], 06/05/2023 16:03:12 07/18/19 24 07/17/2023 CT, chest , w/o contr ast No observ ation record ed. [email or web address] [facility] (Medical Records) [address] [place], [address], 07/19/2023 08:35:01 10/08/19 24 10/07/2023 MAMMO , scree tanesha, digit al, bilat eral No observ ation record ed. [email or web address] [address], [address], 10/08/2023 08:00:38 01/08/20 24 01/08/2024 CT, abdom en, w/wo contr ast No observ ation record ed. [email or web address] [facility] (Medical Records) [address] [place], [address], 01/08/2024 14:22:25 12/08/26 2303/11/2024 US, retro perit oneum No observ ation record ed. [email or web address] [facility] (Medical Records) [address] [facility], [place], [address], 03/13/2024 08:25:53 Result Notes None recorded. Problems Name Problem SNOMED Code Status Onset Date Resolution Date Notes Provider Name and Address Organization Details Recorded Time Herpes simplex 86304274 Active 2017 Not Available [facility] 3 15:48:15 Generaliz ed anxiety disorder 92226134 Active 2021 Not Available [facility] 3 15:48:14 Pain of right shoulder joint 829779342242 86157 Active 2022 JANETTE YODER [address] [place] [address], [address], [facility] 3 16:17:02 Bilateral wrist pain 363966580915 00409 Active 2022 JANETTE YODER [address] [place] [address], [address], [facility] 3 16:17:21 Kidney stone 53742053 Active 2023 JANETTE YODER [address] [place] [address], [address], [facility] 4 09:47:06 Acute otitis media 4661536 Active 2023 JANETTE YODER [address] [place] [address], [address], [facility] 4 16:21:41 Hyperthyr oidism 36322193 Active 2023 JANETTE YODER [address] [place] [address], [address], [facility] 4 16:23:01 Dizziness 975559632 Active 2023 JANETTE YODER [address] [place] [address], [address], [facility] 4 16:24:47 Acute otitis media 3315323 Active 2023 JANETTE YOEDR [address] [place], [address], [facility] 4 15:12:09 Asthma 011051706 Active 2017 Not Available [facility] 3 15:48:14 Hypothyro idism 62723652 Active 2017 Not Available [facility] 3 15:48:15 Fibromyal maggie 412759805 Active 2017 Not Available [facility] 3 15:48:14 Migraine 69502177 Active 2017 Not Available [facility] 3 15:48:14 Impaired fasting glycemia 089671143 Active 2017 Not Available [facility] 3 15:48:15 Angioedem a 56124610 Active 2017 Not Available [facility] 3 15:48:15 Eczema 34342578 Active 2017 Not Available [facility] 3 15:48:15 Mixed hyperlipi demia 903578043 Active 2017 Not Available [facility] 3 15:48:14 Anxiety 04532360 Active 2017 Not Available [facility] 3 15:48:15 Problem Notes None recorded. Procedures Surgical History Date Name Laterality Status Provider Name and Address Organization Details Recorded Time 12/11/19 24 Cerumen Removal completed JANETTE YODER [address] [place] [address], [address], [facility] 12/11/2023 15:17:59 05/27/19 24 Colonoscopy completed Herminio Lo DO [address] [place], [address], [facility] 05/27/2023 16:07:28 04/14/19 19 Most Recent Mammogram completed Gema Sotelo [facility] 10/20/2018 16:15:30 04/09/19 19 Colonoscopy completed Ana Queen [facility] 04/09/2018 09:59:35 Imaging Results Imaging Date Name Status LastModified by Organization Details LastModified Time 10/05/2022 MAMMO, screening, digital, bilateral [facility] [address] [place] [address], [address], 10/05/2022 09:13:11 03/21/2023 XR, wrist, 3 or more view completed [address], [address], 03/25/2023 15:54:38 03/21/2023 XR, wrist, 3 or more view completed [address], [address], 03/25/2023 15:54:38 03/21/2023 XR, shoulder, 2 or more view completed [address], [address], 03/25/2023 15:54:39 06/05/2023 US, kidney completed [email or web address] [place], [address], 06/05/2023 16:03:12 07/17/2023 CT, chest, w/o contrast completed [email or web address] [place] [address] (Medical Records) [address] [place], [address], 07/19/2023 08:35:01 10/07/2023 MAMMO, screening, digital, bilateral [email or web address] [address], [address], 10/08/2023 08:00:38 01/08/2024 CT, abdomen, w/wo [facility] [address] [place], [address], 01/08/2024 14:22:25 03/11/2024 US, retroperitoneum completed [address] (Medical Records) [address] [place], [address], 03/13/2024 08:25:53 Procedure Notes None recorded. Medical Equipment None Reported. Allergies Allergen ID Allergen Name Allergen Category Reaction Reaction Severity Criticality Documentation Date Start Date Code Code System Note Provider Name and Address Organization Details Recorded Time 1891 Medicinal product containin g penicilli n and acting as antibacte rial agent (product) medicatio n Not available Not available Not available 10/21/2017 63565 05 [facility] Gema aguilar [facility] 8 16:05:19 1893 Substance with sulfonami de structure and antibacte rial mechanism of action (substanc e) medicatio n Not available Not available Not available 10/21/2017 52828 8003 [facility] Gema aguilar [facility] 8 16:05:25 5814 lactose food,medi cation diarrhea severe Not available 10/02/2021 6211 RxNorm bleed ing recta lly Gladys aguilar [facility] 2 09:05:44 6992 Buspar medicatio n dizziness moderate Not available 10/03/2022 49880 0 RxNorm JANETTE YODER [address] [place], [address], [facility] 3 09:05:58 Medications Name Sig Start Date [...] e 50 mcg/actua tion nasal spray,kaur pension [place] 1 spray every day by intranas al [...] Address Organization Details Last Updated DateTime 3 70862.0 7 g 35.6 kg/m2 160.02 cm 89 /min 97 % 97 % 140 mm[Hg] 80 mm[Hg] Lisa Conley [facility] 3 09:03:19 Date Recorded Body height Body mass index (BMI) Body weight Heart rate Oxygen saturation Oxygen saturation in Arterial blood by Pulse oximetry Systolic blood pressure Diastolic blood pressure Provider Name and Address Organization Details Last Updated DateTime 3 160.02 cm 36.8 kg/m2 09379.2 1 g 76 /min 98 % 98 % 120 mm[Hg] 82 mm[Hg] O[facility] 3 16:05:23 Date Recorded Body height Body mass index (BMI) Body weight Heart rate Oxygen saturation Oxygen saturation in Arterial blood by Pulse oximetry Systolic blood pressure Diastolic blood pressure Provider Name and Address Organization Details Last Updated DateTime 4 160.02 cm 36.8 kg/m2 46410.2 1 g 78 /min 95 % 95 % 130 mm[Hg] 80 mm[Hg] Lisa Conley [facility] 4 15:30:45 Date Recorded Body height Provider Name an d Address Organization Details Last Updated DateTime 12/11/2023 160.02 cm Radha Goodman [facility] 12/11/2023 14:32:14 Date Recorded Heart rate Oxygen saturation Oxygen saturation in Arterial blood by Pulse oximetry Systolic blood pressure Diastolic blood pressure Provider Name and Address Organization Details Last Updated DateTime 4 75 /min 95 % 95 % 120 mm[Hg] 68 mm[Hg] Lisa [facility] 4 14:47:31 Social History Question Answer Notes LastModified by Organizat ion Details LastModified Time Tobacco Smoking Status Former Smoker Not Available [facility] 02/09/2020 03:36:23 What Is Your Level [...] virus, quadrivalent, preservative 1 completed JANETTE YODER [address] [place] [address], [address], [facility] 05/17/2023 09:14:29 COVID-19, mRNA, LNP-S, PF, 30 mcg/0.3 mL dose 1 completed JANETTE YODER [address] [place] [address], [address], [facility] 05/17/2023 09:14:29 Influenza, split virus, quadrivalent, preservative 8 completed JANETTE YODER [address] [place] [address], [address], [facility] 05/17/2023 09:14:29 Influenza, split virus, trivalent, preservative 9 completed Not Available [facility] 06/17/2020 17:46:43 Influenza, split virus, quadrivalent, preservative 0 completed JANETTE YODER [address] [place] [address], [address], [facility] 05/17/2023 09:14:29 COVID-19, mRNA, LNP-S, PF, 30 mcg/0.3 mL dose 0 completed JANETTE YODER [address] [place], [address], [facility] 05/17/2023 09:14:29 COVID-19, mRNA, LNP-S, PF, 30 mcg/0.3 mL dose 1 completed JANTETE YODER [address] [place], [address], [facility] 05/17/2023 09:14:29 zoster recombinant 1 completed JANETTE YODER [address] [place], [address], [facility] 05/17/2023 09:14:29 Past Encounters Encounter ID Performer Location Encounter Start Date Encounter Closed Date Diagnosis/Indication Diagnosis SNOMED-CT Code Diagnosis ICD10 Code [id number] [facility] [address] [place] [address] [place] [address] 10/22/2017 08:55:47 10/22/2017 09:52:36 Asthma 240272904 J45.909 Impaired f asting glycemia 830334061 R73.01 Hypothyroidism 55372535 E03.9 Migraine 72100611 G43.90 9 Mixed hyperlipidemia 267 691704 E78.2 Anxiety 30997197 F41.9 Chronic tremor 444440791 R25.1 Arthralgia of the ankle and/or foot 593546607 M25.[id number] [place] [address] 04/23/2018 08:46:59 04/23/2018 09:23:20 Anxiety 88815211 F41.9 Mixed hyperlipidemia 267 837579 E78.2 Asthma 830200879 J45.90 9 Impaired f asting glycemia 250235409 R73.01 Hypothyroidism 35230426 E03.9 Active or passive immunization 878417740 Z23 Body mass index 30+ - obesity 099399828 Z68.35 Migraine 37468993 G43.90 9 Vitamin D deficiency 347 10913 E55.9 [id number] [facility] [address] [place] [address] [place] [address] 10/21/2018 13:20:55 10/21/2018 16:04:51 Adult health examination 190905260 Z00.00 Active or passive immunization 702267251 Z23 Anxiety 83739835 F41.9 Mixed hyperlipidemia 267 168496 E78.2 Asthma 300543814 J45.90 9 Impaired f asting glycemia 069845304 R73.01 Hypothyroidism 26351743 E03.9 Seasonal a llergic rhinitis 790909919 J30.2 Eczema 63024901 L30.9 Skin lesion 05423632 L98 .9 [id number] July JAYE Milner [facility] [address] [facility] [address] 05/06/2019 13:20:00 05/06/2019 14:00:04 Asthma 575475133 J45.909 Anxiety 27825695 F41.9 Mixed hyperlipidemia 267 858183 E78.2 Impaired f asting glycemia 213646270 R73.01 Hypothyroidism 43909420 E03.9 Seasonal a llergic rhinitis 284556758 J30.2 Eczema 96049561 L30.9 Allergy to penicillin 91 939757 Z88.0 [id number] JANETTE YODER [facility] [address] [place] [address] 03/28/2020 09:40:30 03/28/2020 11:18:40 Hypothyroidism 33800749 E03.9 Eczema 65382816 L30.9 [id number] JANETTE YODER [facility] [address] [place] [address] 09/28/2020 08:55:13 09/28/2020 09:30:16 Active or passive immunization 517762193 Z23 Adult heal th examination 091772556 Z00.00 Easy bruising 521076325 R58 Menopausal flushing 1983 96166 N95.1 [id number] JANETTE YODER [facility] [address] [facility] [address] 10/02/2021 08:59:55 10/02/2021 14:01:44 Active or passive immunization 145685621 Z23 Adult heal th examination 029552693 Z00.00 [id number] JANETTE YODER [facility] [address] [facility] [address] 10/03/2022 08:52:12 10/03/2022 09:21:28 Active or passive immunization 728154671 Z23 Adult [facility] examination 967653062 Z00.00 Anxiety 69499353 F41.1 [id number] JANETTE YODER [facility] [address] [facility] [address] 03/19/2023 15:55:26 03/20/2023 08:31:40 Pain of right shoulder joint 4663003022 9302617 M25.511 Bilateral wrist pain 257 1370635 2585342 M25.531 Asthma 980012699 J45.21 [id number] JANETTE YODER [facility] [address] [place] [address],[place] [address] 05/17/2023 09:14:09 05/20/2023 08:42:25 Kidney stone 73424813 N20.0 [id number] JANETTE YODER [facility] [address] [facility] [address] 11/15/2023 15:12:39 11/18/2023 08:14:00 Acute otitis media 1245813 H65.03 Hyperthyroidism 45854620 E05.90 Adult [facility] examination 521849712 Z00.00 Dizziness 388680357 R42 Impaired f asting glycemia 262150198 R73.01 Eczema 59714931 L30.9 [id number] JANETTE YODER [facility] [address] [facility] [address] 12/11/2023 14:23:26 12/11/2023 16:11:32 Acute otitis media 8323601 H65.03 Hypothyroidism 98650559 E03.8 Health Concerns Section Related Observation LastModified by Organization Detai ls LastModified Time None Recorded Concern Status LastModified by Organization Details LastModified Time None Recorded Advance Directives Directive None Recorded Payers Encounter Date Sequence Insurance Name Policy Number Policy Linder Covered Member ID Linder Member ID Guarantor Name 10/03/2022 1 [facility] (POS) [id number] Jaja Gonzalez [id number] Jaja Gonzalez 03/19/2023 1 [employer] (O) Jaja Gonzalez [id number] Jaja Gonzalez 05/17/2023 1 [employer] (HMO) Jaja Gonzalez [id number] Jaja Gonzalez 11/15/[address] [facility] (O) [id number] Jaja Gonzalez [id number] Jaja Gonzalez 12/11/[address] [facility] (O) [id number] Jaja Whitakerk [id number] Jaja Gonzalez Notes Date Note Type Note [...] having COVID a month out JANETTE YODER [address] [place] [address], [address], [facility] 10/03/2022 09:21:15 03/19/20 [...] tendon tenderness and palpation JANETTE YODER [address] [place], [address], [facility] 03/19/2023 16:23:51 05/17/19 24 text/htm l ER f/u The patient is participating in this appointment via telemedicine communication with a phone call/video calling service ([employer])The patient consents to use of these platforms [...] interim between switching urologists JANETTE YODER [address] [place], [address], [facility] 05/17/2023 09:55:27 11/15/19 24 text/htm [...] of hearing Vision:no vision problems JANETTE YODER [address] [place] [address], [address], [facility] 11/15/2023 16:32:31 12/11/19 24 text/htm [...] dental pain; no jaw pain JANETTE YODER [address] [place] [address], [address] 12/11/2023 15:23:44 OBGyn Episode No OBEpisode recorded.
[2024-04-07 09:53] VITALS: BMI 35.4
[2024-04-07 10:00] VITALS: BP 165/75; PULSE 81; RESP 15; TEMP 36.5; O2SAT 95
[2024-04-07] MEDS: Lactated Ringers 1,000 ML 50 ML IVCONT (10:15)
--- NOTE | 2024-04-07 10:28 | HO.ANESPROP2 ---
[facility] Active Problems Active Problems: All Active Problems Ureteral stone (Acute) Renal mass of unknown nature (Acute) Renal mass (Acute) Renal calculi (Acute) Hydronephrosis, right (Acute) History of kidney stones (Acute) Past Medical History Medical History Hx of mammogram Mixed hyperlipidemia Angioedema Migraine Fibromyalgia Hypothyroid Asthma Anxiety Impaired fasting blood sugar Family History Family History Father No problems noted. Mother No problems noted. Family history of problems with anesthesia: No Surgical History Surgical History (Updated 04/07/24 @ 10:16 by Umm Garzon RN) History of dental surgery Hx of colonoscopy History of Problems with Anesthesia: No Social History Social History Alcohol intake: current Alcohol intake frequency: holidays/special occasions only Patient Tobacco Use Status: Former Tobacco user Use of substances other than those prescribed or required for medical reasons: No Are you DNR?: No Advance Directives: No Advance Directives Information Provided: Yes Meds Allergies Allergy/AdvReac Type Severity Reaction Status Date / Time Penicillins Allergy Mild Swelling Verified 04/07/24 09:53 Sulfa (Sulfonamide Allergy Rash Verified 04/07/24 09:53 Antibiotics) Active Medications: Current Medications Lactated Ringer's (Lr) 1,000 mls @ 50 mls/hr IVCONT .Q20H NOEMI Last Admin: 04/07/24 10:15 Dose: 50 mls/hr Home Medications ?Medication ?Instructions ?Recorded ?Confirmed ?Last Taken ?Type fluticasone furoate 200 1 ea inhalation DAILY PRN 06/11/23 04/07/24 Unknown History mcg-vilanterol 25 mcg/dose Shortness Of Breath Or Wheezing inhalation powder (Breo Ellipta) levalbuterol tartrate 45 2 puff inhalation Q4-6H 06/11/23 04/07/24 Unknown History mcg/actuation aerosol inhaler levothyroxine 112 mcg tablet 112 mcg PO DAILY 06/11/23 04/07/24 Unknown History (Synthroid) mirtazapine 15 mg tablet 15 mg PO BEDTIME PRN Insomnia 06/11/23 04/07/24 Unknown History pravastatin 40 mg tablet 40 mg PO DAILY 06/11/23 04/07/24 Unknown History Exam Height,Weight and Vital Signs: Height 5 ft 3 in Weight 90.718 kg Last Vital Signs Temp 97.7 F 04/07/24 10:00 Pulse 81 04/07/24 10:00 Resp 15 04/07/24 10:00 BP 165/75 H 04/07/24 10:00 Pulse Ox 95 04/07/24 10:00 O2 Del Method Room Air 04/07/24 10:00 Airway Mallampati Class: II TM Dist: >3cm Neck ROM: Full Assessment and Plan Assessment Anesthesia Assessment: Anesthesia Plan Discussed and Chart Reviewed Final Anesthetic Review Family History of Problems with Anesthesia: No History of Problems with Anesthesia: No NPO: Yes ASA Class: II Final Preanesthetic Review: No Changes in Pt Med Stat, Meds/Allgs Chart Reviewed, Consent Obtained/Reviewed and Anes Risks/Benef Reviewed Patient Risk: Intermediate Procedure Risk: Low Anesthetic Plan Anesthetic Plan: GA Disposition: Standard PACU
--- NOTE | 2024-04-07 10:28 | MHC.SHP ---
Pre-Procedural Eval Section A - 24 Hr Update-Section A only Date of Service: 04/07/24 The patient is an INPATIENT: No The patient has been examined within 24 hours of the surgical procedure. The History & Physical has been completed within 30 days and I have reviewed it.: Yes Section B - Complete if H&P > 30 days Chief Complaint: Unspecified hydronephrosis Allergies: Allergies Allergy/AdvReac Type Severity Reaction Status Date / Time Penicillins Allergy Mild Swelling Verified 04/07/24 09:53 Sulfa (Sulfonamide Allergy Rash Verified 04/07/24 09:53 Antibiotics) Plan Diagnosis/Plan: Unchanged I have reviewed the history and physical and performed a pertinent physical examination on my patient. No changes have occurred unless specified. Plan for Cystoscopy, right ureteroscopy, possible laser lithotripsy, ureteral stent. Risks discussed included but not limited to, possible need to repeat procedure if stone is not completely fragmented, Irritative voiding symptoms, bladder spasms, urgency, blood in urine. Time Spent With Patient Time: Total time managing care of this patient today ____ minutes.
[2024-04-07 11:37] VITALS: BP 128/73; PULSE 92; RESP 18; TEMP 36.9; O2SAT 94
[2024-04-07 11:42] VITALS: BP 126/79; PULSE 88; RESP 16; O2SAT 94
--- NOTE | 2024-04-07 11:42 | P.OP_ITS ---
Operative Note Operative Note Date of Service: 04/07/24 Narrative: PreOperative Diagnosis:?? Right ureteral stone right hydronephrosis Post Operative Diagnosis:?? Right ureteral stone right hydronephrosis Procedure: - Cystoscopy, retrograde, balloon dilation, ureteroscopy 7 Japanese by 24 cm Surgeon:?Dr Amber Blanco Anesthesia:? General Findings: Right ureteral stone impacted along mid to proximal ureter Procedure: After informed consent was verified the patient was brought to the operating placed on the OR table in supine position.? General Anesthesia was administered per protocol.? The patient was placed in lithotomy position, prepped and draped in the usual sterile fashion.? Safety pause time-out and side of surgery confirmed.? Antibiotics confirmed. 2% lidocaine jelly 10 mL was passed transurethrally. A 22 Japanese cystoscope was inserted transurethrally, The bladder was visualized.? Both ureteric orifices were in normal position. An open-ended ureteral catheter was passed into the right ureteral orifice and a retrograde examination was performed. There was a narrowing and a filling defect in the mid to proximal ureter and dilatation of the proximal ureter. A guidewire was passed through the ureteral catheter into the kidney. The balloon dilator size 12 fr x 4 cm was passed over the guide-wire the balloon was inflated to 8 mmHg and the intramural ureter was dilated for 60 seconds. The balloon was deflated and removed. After removing the balloon dilator the cystoscope was removed, leaving the guidewire in place, which was attached to the draping. The semi rigid ureteroscope was passed transurethrally with a guidewire through the ureteroscope to the level of the stone in the mid to ureter. The stone was noted to be impacted along the lateral wall of the ureter. The ureteroscope was removed. The cystoscope was passed over the safety guidewire. A? 7 Japanese by 24 cm stent was placed into the ureter and renal pelvis under a combination of fluoroscopy and direct visualization. The bladder was emptied.? The rigid cystoscope was removed. ? The patient tolerated the procedure well and was brought to the recovery room in stable condition. The patient will need further treatment for stone fragmentation. Complications: None Drains: Ureteral stent as dictated above
[2024-04-07 11:47] VITALS: BP 125/64; PULSE 77; RESP 16; O2SAT 96
[2024-04-07 11:52] VITALS: BP 107/67; PULSE 80; RESP 16; O2SAT 96
[2024-04-07] MEDS: Phenazopyridine HCL 200 MG TABLET PO (11:55)
[2024-04-07 12:07] VITALS: BP 137/84; PULSE 78; RESP 16; TEMP 36.1; O2SAT 99
== END 2024-04-07 12:38 | disposition home or self-care (01) ==
PROVIDERS: PCP Internal Medicine; Visit Provider Urology
PROC: (CPT 52344; principal; 2024-04-07 11:30)
DX: N13.2 Hydronephrosis with renal and ureteral calculous obstruction (principal); N13.30 Unspecified hydronephrosis; Z87.442 Personal history of urinary calculi; E78.2 Mixed hyperlipidemia; M79.7 Fibromyalgia; E03.9 Hypothyroidism, unspecified; R73.01 Impaired fasting glucose; J45.909 Unspecified asthma, uncomplicated; F41.9 Anxiety disorder, unspecified; G43.909 Migraine, unspecified, not intractable, without status migrainosus; Z79.899 Other long term (current) drug therapy
CPT/HCPCS: 52344; 52332; 87086; C1726; C1758; C1769; C2617; J1100; J1956; J2003; J2250; J2405; J2704; J3010; Q9967

== ENCOUNTER → 2024-04-07 09:43 | Outpatient (BNV) | payer OTHER, SELFPAY | PROVIDERS: PCP Internal Medicine; Visit Provider Urology | DX: N20.1 Calculus of ureter (principal); N13.30 Unspecified hydronephrosis | CPT/HCPCS: 52332; 74420 ==

== ENCOUNTER 2024-04-20 11:21 | Outpatient (REF) | payer OTHER, SELFPAY ==
--- NOTE | ~2024-04-20 | XR_ITS ---
EXAMINATION: XR ABDOMEN 1 VIEW (KUB) HISTORY: N20.1 - Calculus of ureter COMPARISON: The ablation is made with a CT of the abdomen without and with contrast dated 01/08/2024. FINDINGS: Two supine views of the abdomen are submitted. The bowel gas pattern is unremarkable, without evidence of mechanical obstruction. A right nephroureteral stent is noted in place. There is a faint 6 mm calcification adjacent to the proximal portion of the stent at the level of the superior endplate of L3 which may represent the previously noted ureteral calculus. There are no abnormal soft tissue masses. The bones are intact. XR/XR KUB IMPRESSION: Right nephroureteral stent in place. Faint 6 mm calcification adjacent to the proximal portion of the stent which may represent the previously seen ureteral calculus. Electronically signed by: Nas Guan MD 04/22/2024 03:45 PM OTONIEL
--- OUTSIDE RECORDS SUMMARY | 2024-04-20 13:26 | XMS_ITS | Data Portability ---
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 MUST MEET 2 OUT OF [...] available Lab CMP, serum or plasma 2023 0809 024 [facility], [address] [place] [address], [place], [address], 11/15/2023 16:32:39 hemoglobi n A1c, QN, blood 2023 024 [facility], [address] [place] [address], [address], 11/15/2023 16:32:39 lipid panel, serum 2023 024 [facility], [address] [place] [address], [address], 11/15/2023 16:32:39 CBC w/ auto diff 2023 024 [facility], [address] [place] [address], [address], 11/15/2023 16:32:39 T3, free, serum or plasma 2023 024 [facility], [address] [place] [address], [address], 11/15/2023 16:25:01 tsi (thyroid- stimulati ng immunoglo bulin), serum 2023 024 [facility], [address] [place] [address], [address], 11/15/2023 16:25:01 thyroid peroxidas e (tpo) Ab, serum 2023 024 [facility], [address] [place] [address], [address], 11/15/2023 16:25:01 C reactive protein, QN, serum or plasma 2023 024 [facility], [address] [place] [address], [address], 11/15/2023 16:25:00 ESR (erythroc yte sedimenta tion rate), blood 2023 024 [facility], [address] [place] [address], [place], [address], 11/15/2023 16:25:01 TSH + free T4, serum 2023 024 [facility], [address] [facility], [place], [address], 11/15/2023 16:25:01 TSH + free T4, serum 2023 024 [facility], [address] [facility], [place], [address], 11/15/2023 16:39:56 TSH + free T4, serum 2023 024 [facility], [place], [address], 12/11/2023 15:18:48 T3, free, serum or plasma 2023 024 [facility], [place], [address], 12/11/2023 15:18:48 Referral urologist referral - recent ER trip for R kidney stone 2023 024 Ascencion Sanches MD, [address] [place] [address] Stas Gusman, [place], [address], 05/20/2023 08:42:25 Procedures None recorded. Surgeries None recorded. Imaging XR, wrist, 3 or more view 2022 023 [email or web address] Not available 03/26/2023 08:28:25 XR, wrist, 3 or more view 2022 023 ANIL Not available 03/25/2023 15:37:41 XR, shoulder, 2 or more view 2022 023 ANIL Not available 03/25/2023 15:39:23 US, kidney 2023 024 [email or web address] [facility], [facility] [place], [address], 05/22/2023 10:18:20 Medication Orders Breo Ellipta 200 mcg-25 mcg/dose powder for inhalatio n 2022 023 [email or web address] [facility]/Pharmacy #5, [address] [place], [address], 03/20/2023 08:57:53 neomycin- polymyxin -hydrocor t 3.5 mg-10,000 unit/mL-1 % ear drops,kaur p 2023 024 [facility]/Pharmacy #2024, [address] [place], [address], 11/15/2023 16:22:17 meclizine 25 mg tablet 2023 024 [facility] [address] [place], [address], 11/15/2023 16:25:26 triamcino lone acetonide 0.1 % topical cream 2023 024 [facility] [address] [place] [address], [address], 11/15/2023 16:31:44 prednison e 10 mg tablet 2023 025 [facility] [address] [place], [address], 04/15/2024 09:14:48 ciproflox acin 500 mg tablet 2023 025 [facility]/Pharmacy #2024, [address] [place], [address], 04/15/2024 09:14:08 nitrofura ntoin monohydra te/macroc rystals 100 mg capsule 2024 025 [facility] [address] [place], [address], 04/15/2024 09:36:54 Patient TargetsNo targets recorded. Patient Instructions Encounter Date Encounter Id Patient Instructions Last Modified By Organization Details Last Modified Time 04/15/2024 [id number] hypothyroidism: care instructions Not available 04/15/2024 09:38:10 Reason for Referral Urologist Referral for Kidne y stone recent ER trip, has right sided kidney stone, 5 mm (previous urologist does not take her insurance) recent ER trip for R kidney stone Referring Physician: Kyra Recio, Internal Medicine, Encounter Date: 05/17/2023 Results Created Date Observation Date Name Description Value Unit Range Abnormal Flag Note LastModifiedBy Organization Detail LastModifiedTime 03/25/20 23 03/21/2023 XR, wrist , 3 or more view No observ ation record ed. [address], [address], 03/25/2023 15:54:38 03/25/20 23 03/21/2023 XR, wrist , 3 or more view No observ ation record ed. [address], [address], 03/25/2023 15:54:38 03/25/20 23 03/21/2023 XR, shoul brooke, 2 or more view No observ ation record ed. [address], [address], 03/25/2023 15:54:39 06/05/19 24 06/05/2023 US, kidne y No observ ation record ed. [email or web address] [facility] [address] [facility], [place], [address], 06/05/2023 16:03:12 07/18/19 24 07/17/2023 CT, chest , w/o contr ast No observ ation record ed. [email or web address] [place] [address] (Medical Records) [address] [place], [address], 07/19/2023 08:35:01 07/02/10/07/2023 MAMMO , scree tanesha, digit al, bilat eral No observ ation record ed. [email or web address] [facility] [address] [place], [address], 10/08/2023 08:00:38 01/08/20 24 01/08/2024 CT, abdom en, w/wo contr ast No observ ation record ed. [email or web address] [facility] (Medical Records) [address] [place], [address], 01/08/2024 14:22:25 03/12/20 24 03/11/2024 US, retro perit oneum No observ ation record ed. [email or web address] [facility] (Medical Records) [address] [place], [address], 03/13/2024 08:25:53 04/20/19 25 04/07/2024 fluor oscop y (PROC ) No observ ation record ed. [email or web address] [facility] (Medical Records) [address] [place], [address], 04/20/2024 09:10:32 Result Notes None recorded. Problems Name Problem SNOMED Code Status Onset Date Resolution Date Notes Provider Name and Address Organization Details Recorded Time Herpes simplex 01695159 Active 2017 Not Available [facility] 3 15:48:15 Generaliz ed anxiety disorder 92236904 Active 2021 Not Available [facility] 3 15:48:14 Pain of right shoulder joint 745323085250 55507 Active 2022 JANETTE YODER [address] [place], [address], [facility] 3 16:17:02 Bilateral wrist pain 168044364479 99836 Active 2022 JANETTE YODER [address] [place], [address], [facility] 3 16:17:21 Kidney stone 87451714 Active 2023 JANETTE YODER [address] [place], [address], [facility] 4 09:47:06 Acute otitis media 3468704 Active 2023 JANETTE YODER [address] [place], [address], [facility] 4 16:21:41 Hyperthyr oidism 07790889 Active 2023 JANETTE YODER [address] [place], [address], [facility] 4 16:23:01 Dizziness 619722356 Active 2023 JANETTE YODER [address] [place] [address], [address], [facility] 4 16:24:47 Acute otitis media 0889058 Active 2023 JANETTE YODER [address] [place] [address], [address], [facility] 4 15:12:09 Acute urinary tract infection 345932097 Active 2024 Herminio Lo DO [address] [place] [address], [address], [facility] 5 09:35:43 Asthma 341797289 Active 2017 Not Available [facility] 3 15:48:14 Hypothyro idism 13079460 Active 2017 Not Available [facility] 3 15:48:15 Fibromyal maggie 971043137 Active 2017 Not Available [facility] 3 15:48:14 Migraine 87416834 Active 2017 Not Available [facility] 3 15:48:14 Impaired fasting glycemia 439242312 Active 2017 Not Available [facility] 3 15:48:15 Angioedem a 85472216 Active 2017 Not Available [facility] 3 15:48:15 Eczema 71105682 Active 2017 Not Available [facility] 3 15:48:15 Mixed hyperlipi demia 258387734 Active 2017 Not Available [facility] 3 15:48:14 Anxiety 80224445 Active 2017 Not Available [facility] 3 15:48:15 Problem Notes None recorded. Procedures Surgical History Date Name Laterality Status Provider Name and Address Organization Details Recorded Time 12/11/19 24 Cerumen Removal completed JANETTE YODER [address] [place], [address], [facility] 12/11/2023 15:17:59 05/27/19 24 Colonoscopy completed Herminio Lo DO [address] [place], [address], [facility] 05/27/2023 16:07:28 04/14/19 19 Most Recent Mammogram completed Gema Sotelo [facility] 10/20/2018 16:15:30 04/09/19 19 Colonoscopy completed Ana Queen [facility] 04/09/2018 09:59:35 Imaging Results Imaging Date Name Status LastModified by Organization Details LastModified Time 03/21/2023 XR, wrist, 3 or more view completed [address], [address], 03/25/2023 15:54:38 03/21/2023 XR, wrist, 3 or more view completed [address], [address], 03/25/2023 15:54:38 03/21/2023 XR, shoulder, 2 or more view completed [address], [address], 03/25/2023 15:54:39 06/05/2023 US, kidney completed [email or web address] [place] [address] [address] [place], [address], 06/05/2023 16:03:12 07/17/2023 CT, chest, w/o contrast completed [email or web address] [facility] (Medical Records) [address] [place], [address], 07/19/2023 08:35:01 10/07/2023 MAMMO, screening, digital, bilateral completed [email or web address] [facility] [address] [facility], [place], [address], 10/08/2023 08:00:38 01/08/2024 CT, abdomen, w/wo contrast completed [email or web address] [facility] (Medical Records) [address] [place], [address], 01/08/2024 14:22:25 03/11/2024 US, retroperitoneum completed [email or web address] [facility] (Medical Records) [address] [place], [address], 03/13/2024 08:25:53 04/07/2024 fluoroscopy (PROC) completed [facility] (Medical Records) [address] [place], [address], 04/20/2024 09:10:32 Procedure Notes None recorded. Medical Equipment None Reported. Allergies Allergen ID Allergen Name Allergen Category Reaction Reaction Severity Criticality Documentation Date Start Date Code Code System Note Provider Name and Address Organization Details Recorded Time 1892 Medicinal product containin g penicilli n and acting as antibacte rial agent (product) medicatio n Not available Not available Not available 10/21/2017 46262 05 [facility] Gema aguilar [facility] 8 16:05:19 1893 Substance with sulfonami de structure and antibacte rial mechanism of action (substanc e) medicatio n Not available Not available Not available 10/21/2017 30823 8003 RICHIE aguilar [facility] 8 16:05:25 5814 lactose food,medi cation diarrhea severe Not available 10/02/2021 6211 RxNorm bleed ing recta lly Gladys aguilar [facility] 2 09:05:44 6992 Buspar medicatio n dizziness moderate Not available 10/03/2022 48338 0 RxNorm JANETTE YODER [address] [place], [address], [facility] 3 09:05:58 Medications Name Sig Start Date [...] e 50 mcg/actua tion nasal spray,kaur pension [place] 1 spray every day by intranas al [...] Updated DateTime 3 160.02 cm 36.8 kg/m2 49909.2 1 g 76 /min 98 % 98 % 120 mm[Hg] 82 mm[Hg] Oma Sarmiento [facility] 3 16:05:23 Date Recorded Body height Body mass index (BMI) Body weight Heart rate Oxygen saturation Oxygen saturation in Arterial blood by Pulse oximetry Systolic blood pressure Diastolic blood pressure Provider Name and Address Organization Details Last Updated DateTime 4 160.02 cm 36.8 kg/m2 03945.2 1 g 78 /min 95 % 95 % 130 mm[Hg] 80 mm[Hg] Lisa Conley [facility] 4 15:30:45 Date Recorded Body height Provider Name an d Address Organization Details Last Updated DateTime 12/11/2023 160.02 cm Radha Rex [facility] 12/11/2023 14:32:14 Date Recorded Heart rate Oxygen saturation Oxygen saturation in Arterial blood by Pulse oximetry Systolic blood pressure Diastolic blood pressure Provider Name and Address Organization Details Last Updated DateTime 4 75 /min 95 % 95 % 120 mm[Hg] 68 mm[Hg] Lisa Conley [facility] 4 14:47:31 Date Recorded Body height Body mass index (BMI) Body weight Systolic blood pressure Diastolic blood pressure Provider Name and Address Organization Details Last Updated DateTime 04/15/2024 160.02 cm 35.4 kg/m2 68166.47 g 120 mm[Hg] 80 mm[Hg] Lisa Conley [facility] 5 09:16:24 Social History Question Answer Notes LastModified by Organizat ion Details LastModified Time Tobacco Smoking Status Former Smoker Not Available [facility] 02/09/2020 03:36:23 What Is Your Level [...] Of Your Most Recent Tobacco Screening? 04/15/2024 [email or web address] Information not available 04/15/2024 How Many Children [...] Artery Disease N Gout N Other N Kidney Stones N Blood Diseases N Blood Transfusion N Breast Cancer N Lung Disease N Depression N COPD N Defects or Inherited Disease N Anxiety Disorder N Muscle, Joint, or Bone Problems N Obesity N Vision or Eye Problems N Arthritis N Infertility N Polyps N Mental Disorder N Cancer N Stroke N Varicosities N Endometriosis N Bladder or Kidney Problems N High Cholesterol Y Liver Disease N Fibromyalgia Y Headaches Y Kidney Disease N Allergies/Hayfever N Heart Problems N Hospitalizations N Thyroid Problems Y GI Problems N Eating Disorder N Skin Problems N Anemia N MRSA exposure N Constipation N Mental Illness N Diabetes N Ovarian Cancer N Seizures/Epilepsy N Tuberculosis N Congestive Heart Failure (CHF) N Eczema N Abuse/Domestic Violence N Diverticulitis N Asthma Y Reflux/GERD N Hepatitis N [...] virus, quadrivalent, preservative 1 completed JANETTE YODER [address] [place] [address], [address], [facility] 05/17/2023 09:14:29 COVID-19, mRNA, LNP-S, PF, 30 mcg/0.3 mL dose 1 completed JANETTE YODER [address] [place] [address], [address], [facility] 05/17/2023 09:14:29 Influenza, split virus, quadrivalent, preservative 8 completed JANETTE YODER [address] [place] [address], [address], [facility] 05/17/2023 09:14:29 Influenza, split virus, trivalent, preservative 9 completed Not Available [facility] 06/17/2020 17:46:43 Influenza, split virus, quadrivalent, preservative 0 completed JANETTE YODER [address] [place] [address], [address], [facility] 05/17/2023 09:14:29 COVID-19, mRNA, LNP-S, PF, 30 mcg/0.3 mL dose 0 completed JANETTE YODER [address] [place] [address], [address], [facility] 05/17/2023 09:14:29 COVID-19, mRNA, LNP-S, PF, 30 mcg/0.3 mL dose 1 completed JANETTE YODER [address] [place] [address], [address], [facility] 05/17/2023 09:14:29 zoster recombinant 1 completed JANETTE YODER [address] [place] [address], [address], [facility] 05/17/2023 09:14:29 Past Encounters Encounter ID Performer Location Encounter Start Date Encounter Closed Date Diagnosis/Indication Diagnosis SNOMED-CT Code Diagnosis ICD10 Code Diagnosis Note [id number] Minerva [facility] Internal [facility] [address] [facility] [facility] [place] [address] 10/22/2017 08:55:47 10/22/2017 09:52:36 Asthma 622277886 J45.909 well controlled Impaired f asting glycemia 386839034 R73.01 stable diet reinforced Hypothyroidism 15114490 E03.9 needs to be rechecked Migraine 78580476 G43.90 9 on rizatripta n if needed Mixed hyperlipidemia 267 457918 E78.2 improved on increased dose of pravastati n will keep dose the same diet and exercise reinforced to reach goal range Anxiety 33665043 F41.9 well controlled rare use of alprazolam Chronic tremor 864501396 R25.1 will check thyroid bp normal fbs reassuring if thyroid normal will refer to neuro Arthralgia of the ankle and/or foot 465673464 M25.579 reassuring exam recommendd conservati ve management will do xr if pain persists [id number] [facility] [address] [facility] mary Velazquez [facility] [place] [address] 04/23/2018 08:46:59 04/23/2018 09:23:20 Anxiety 81910987 F41.9 well controlled on sertraline 50 mg rare use of alprazolam Mixed hyperlipidemia 267 793342 E78.2 has been inconsiste nt with dosing levels are much the same with slight worsening of HDL/LDL ratios diet and exercise reinforced to reach goal range Asthma 523397121 J45.90 9 well controlled Impaired f asting glycemia 612923356 R73.01 stable diet reinforced Hypothyroidism 63579361 E03.9 normal 04/2018 same dose of 125 Active or passive immunization 129491192 Z23 Body mass index 30+ - obesity 545577110 Z68.35 healthy diet and exercise Migraine 42714864 G43.90 9 on rizatripta n if needed Vitamin D deficiency 347 61953 E55.9 [id number] [facility] [address] [facility] [place] [address] 10/21/2018 13:20:55 10/21/2018 16:04:51 Adult health examination 165893472 Z00.00 Active or passive immunization 228923159 Z23 Anxiety 75847743 F41.9 well controlled on sertraline 50 mg rare use of alprazolam Mixed hyperlipidemia 267 263837 E78.2 well controlled LDL improved compared to previous Asthma 675915727 J45.90 9 well controlled no issues in quite some time Impaired f asting glycemia 519426708 R73.01 stable diet reinforced Hypothyroidism 37853143 E03.9 normal 10/2018 same dose of 125 Seasonal a llergic rhinitis 145264289 J30.2 try xyzal Eczema 37152887 L30.9 Skin lesion 71391071 L98 .9 [id number] July JAYE Milner [facility] Internal [facility] [address] [facility] [facility] [place] [address] 05/06/2019 13:20:00 05/06/2019 14:00:04 Asthma 293000339 J45.909 well controlled no issues in quite some time Anxiety 52311616 F41.9 rare, doesn't even use alprazolam Mixed hyperlipidemia 267 265747 E78.2 well controlled LDL improved compared to previous Impaired f asting glycemia 575115175 R73.01 stable diet reinforced Hypothyroidism 99002859 E03.9 normal 10/2018 same dose of 125 Seasonal a llergic rhinitis 747675285 J30.2 using xyzal/flon ase as needed, basically all year except winter Eczema 61391664 L30.9 not bothersome Allergy to penicillin 91 917531 Z88.[address] gaviria for allergy testing for this and sulfa [id number] JANETTE YODER [facility] [address] [facility] [facility] [address] 03/28/2020 09:40:30 03/28/2020 11:18:40 Hypothyroidism 72908167 E03.9 will fu with lab work when it comes in will send in refill Eczema 38130790 L30.9 will trial increased strength cream and see if it works better [id number] JANETTE YODER [facility] [address] [facility] [address] 09/28/2020 08:55:13 09/28/2020 09:30:16 Active or passive immunization 648322567 Z23 advised Adult heal th examination 175389775 Z00.00 BP excellent Easy bruising 630210784 R58 will do work up for easy bruising and recheck her TSH which is due Menopausal flushing 1983 06545 N95.1 will trial paxilmothe r has ovarian cancer, cannot use HRT [id number] JANETTE YODER [facility] [address] [facility] [address] 10/02/2021 08:59:55 10/02/2021 14:01:44 Active or passive immunization 446964164 Z23 advised Adult heal th examination 294889377 Z00.00 BP excellent today [id number] JANETTE YODER [facility] [address] [facility] [facility] [address] 10/03/2022 08:52:12 10/03/2022 09:21:28 Active or passive immunization 625966932 Z23 advised Adult heal th examination 656513788 Z00.00 BP excellent today Anxiety 15424361 F41.1 increased dose [id number] JANETTE YODER [facility] [address] [facility] [address] 03/19/2023 15:55:26 03/20/2023 08:31:40 Pain of right shoulder joint 2934689121 2911967 M25.511 will need MRI Bilateral wrist pain 318 6705864 2640327 M25.531 will prob need hand surgeon referralwo uld like assessment of wrist joints as well Asthma 354102933 J45.21 will refill [id number] JANETTE YODER [facility] [address] [facility] [address] 05/17/2023 09:14:09 05/20/2023 08:42:25 Kidney stone 97634272 N20.0 5 mm right ureteral stoneneeds new urologist who takes her insurancew ill f/u with US kidney since she had to cancel her original since Dr. Mcgee ordered itwill fax results to urology [id number] JANETTE YODER [facility] [address] [facility] [facility] [address] 11/15/2023 15:12:39 11/18/2023 08:14:00 Acute otitis media 0749685 H65.03 start ear drops Hyperthyroidism 06230603 E05.90 set up with lab work Adult heal th examination 862647872 Z00.00 BP excellent today Dizziness 165548561 R42 will start on meclizine Impaired f asting glycemia 795221895 R73.01 agreed to set up standing orders for patient Eczema 12505462 L30.9 will trial increased strength cream and see if it works better [id number] JANETTE YODER [facility] Internal [facility] [address] [facility] [address] 12/11/2023 14:23:26 12/11/2023 16:11:32 Acute otitis media 3895068 H65.03 will set up with prednisone and cipro for the patient Hypothyroidism 11935026 E03.8 will fu with lab work when it comes in will send in refill [id number] Herminio Lo, [facility] Internal Medicine [address] [facility] [address] 04/15/2024 09:08:22 04/15/2024 09:39:50 Kidney stone 62144030 N20.0 per urology will be getting litho in may Acute urin ashley tract infection 330039477 N39.0 Hypothyroidism 10983020 E03.8 will adjust thyroid dose by taking [...] Member ID Linder Member ID Guarantor Name 03/19/2023 1 [facility] (HMO) Jaja Gonzalez [id number] Jaja [employer] 05/17/2023 1 [facility] (HMO) Jaja Gonzalez [id number] Jaja Lobudefco 11/15/[address] [facility] (PPO) [id number] Jaja Gellerudek [id number] Jaja Lobudek 12/11/[address] [facility] (PPO) [id number] Jaja Bhatti Lobudek [id number] [facility] [employer] 04/15/[address] [facility] (PPO) [id number] Jaja Bhatti Lob[employer]ek [id number] [facility] [employer] Notes Date Note Type Note Provider Name and Address Organization Details Recorded Time 03/19/20 23 text/htm l c/o right shoulder, [...] bicep tendon tenderness and palpation JANETTE YODER [address] [place] [address], [address], [facility] 03/19/2023 16:23:51 05/17/19 24 text/htm l ER f/u The patient is participating in this appointment via telemedicine communication with a phone call/video calling service ([employer])The patient consents to use of these platforms [...] interim between switching urologists JANETTE YODER [address] [place], [address], [facility] 05/17/2023 09:55:27 11/15/19 24 [...] of hearing Vision:no vision problems JANETTE YODER [address] [place], [address], [facility] 11/15/2023 16:32:31 12/11/19 24 [...] dental pain; no jaw pain JANETTE YODER [address] [place], [address], [facility] 12/11/2023 15:23:44 04/15/19 25 text/htm l here for rechk soince her surgery fr kidney stonedid well but stone was impacted rleates that she has had significant increase in frequency of urination also has been shaky and jittery since last synthroid adjust Herminio Lo, DO [address] [facility], [place], [address], [facility] 04/15/2024 09:39:03 OBGyn Episode No OBEpisode recorded.
--- OUTSIDE RECORDS SUMMARY | 2024-04-20 13:26 | XMS_ITS | Continuity of Care Document ---
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 Patient Instructions Encounter Date Encounter Id Patient Instructions Last Modified By Organization Details Last Modified Time 04/15/2024 [id number] hypothyroidism: care instructions Not available 04/15/2024 09:38:10 Reason for Referral None Reported. Results Created Date Observation Date Name Description Value Unit Range Abnormal Flag Note LastModifiedBy Organization Detail LastModifiedTime 04/20/19 25 04/07/2024 fluor oscop y (PROC ) No observ ation record ed. [facility] (Medical Records) [address] [place], [address], 04/20/2024 09:10:32 Result Notes None recorded. Problems Name Problem SNOMED Code Status Onset Date Resolution Date Notes Provider Name and Address Organization Details Recorded Time Herpes simplex 59314067 Active 2017 Not Available [facility] 3 15:48:15 Generaliz ed anxiety disorder 11257622 Active 2021 Not Available [facility] 3 15:48:14 Pain of right shoulder joint 783347650766 62785 Active 2022 JANETTE YODER [address] [place] [address], [phone], [facility] 3 16:17:02 Bilateral wrist pain 855792210830 88700 Active 2022 JANETTE YODER [address] [place] [address], [address], [facility] 3 16:17:21 Kidney stone 07040890 Active 2023 JANETTE YODER [address] [place] [address], [address], [facility] 4 09:47:06 Acute otitis media 3123812 Active 2023 JANETTE YODER [address] [place] [address], [address], [facility] 4 16:21:41 Hyperthyr oidism 42153487 Active 2023 JANETTE YODER [address] [place] [address], [address], [facility] 4 16:23:01 Dizziness 112624186 Active 2023 JANETTE YODER [address] [place] [address], [address], [facility] 4 16:24:47 Acute otitis media 1648549 Active 2023 JANETTE YODER [address] [place] [address], [address], [facility] 4 15:12:09 Acute urinary tract infection 788537546 Active 2024 Herminio Lo DO [address] [place] [address], [address], [facility] 5 09:35:43 Asthma 000518953 Active 2017 Not Available [facility] 3 15:48:14 Hypothyro idism 79207976 Active 2017 Not Available [facility] 3 15:48:15 Fibromyal maggie 659254277 Active 2017 Not Available [facility] 3 15:48:14 Migraine 24397426 Active 2017 Not Available [facility] 3 15:48:14 Impaired fasting glycemia 352574067 Active 2017 Not Available [facility] 3 15:48:15 Angioedem a 09323369 Active 2017 Not Available [facility] 3 15:48:15 Eczema 32107314 Active 2017 Not Available [facility] 3 15:48:15 Mixed hyperlipi demia 354915994 Active 2017 Not Available [facility] 3 15:48:14 Anxiety 42839496 Active 2017 Not Available [facility] 3 15:48:15 Problem Notes None recorded. Procedures Surgical History Date Name Laterality Status Provider Name and Address Organization Details Recorded Time 12/11/19 24 Cerumen Removal completed JANETTE YODER [address] [place] [address], [phone], [facility] 12/11/2023 15:17:59 05/27/19 24 Colonoscopy completed Herminio Lo DO [address] [place], [address], [facility] 05/27/2023 16:07:28 04/14/19 19 Most Recent Mammogram completed Gema Sotelo [facility] 10/20/2018 16:15:30 04/09/19 19 Colonoscopy completed Ana Queen [facility] 04/09/2018 09:59:35 Imaging Results None recorded. [...] Not available Not available Not available 10/21/2017 64635 05 SNOMED Gemaalfredito Sotelo [facility] 8 16:05:19 189 Substance with sulfonami de structure and antibacte rial mechanism of action (substanc e) medicatio n Not available Not available Not available 10/21/2017 58954 8003 [facility] 8 16:05:25 5814 lactose food,medi cation diarrhea severe Not available 10/02/2021 6211 RxNorm bleed ing recta lly Gladys Kamran [facility] 2 09:05:44 6992 Buspar medicatio n dizziness moderate Not available 10/03/2022 94801 0 RxNorm JANETTE YODER [address] [place], [address], [facility] 3 09:05:58 Medications Name Sig Start [...] Not Available Not Available Not Available erythromy anotn 500 mg tablet,de layed release TAKE 1 [...] e 50 mcg/actua tion nasal spray,kaur pension [place] 1 spray every day by intranas al [...] Updated DateTime 04/15/2024 160.02 cm 35.4 kg/m2 23885.47 g 120 mm[Hg] 80 mm[Hg] [facility] 09:16:24 Social History Question Answer Notes LastModified by Organizat ion Details LastModified Time Tobacco Smoking Status Former Smoker Not Available [facility] 02/09/2020 03:36:23 What Is Your Level [...] Of Your Most Recent Tobacco Screening? 04/15/2024 [email or web address] Information not available 04/15/2024 How Many Children [...] virus, quadrivalent, preservative 1 completed JANETTE YODER [address] [place] [address], [phone], [facility] 05/17/2023 09:14:29 COVID-19, mRNA, LNP-S, PF, 30 mcg/0.3 mL dose 1 completed JANETTE YODER [address] [place] [address], [address], [facility] 05/17/2023 09:14:29 Influenza, split virus, quadrivalent, preservative 8 completed JANETTE YODER [address] [place] [address], [address], [facility] 05/17/2023 09:14:29 Influenza, split virus, trivalent, preservative 9 completed Not Available [facility] 06/17/2020 17:46:43 Influenza, split virus, quadrivalent, preservative 0 completed JANETTE YODER [address] [place] [address], [address], [facility] 05/17/2023 09:14:29 COVID-19, mRNA, LNP-S, PF, 30 mcg/0.3 mL dose 0 completed JANETTE YODER [address] [place] [address], [phone], [facility] 05/17/2023 09:14:29 COVID-19, mRNA, LNP-S, PF, 30 mcg/0.3 mL dose 1 completed JANETTE YODER [address] [place] [address], [address], [facility] 05/17/2023 09:14:29 zoster recombinant 1 completed JANETTE YODER [address] [place] [address], [address], [facility] 05/17/2023 09:14:29 Past Encounters Encounter ID Performer Location Encounter Start Date Encounter Closed Date Diagnosis/Indication Diagnosis SNOMED-CT Code Diagnosis ICD10 Code Diagnosis Note [id number] Herminio Lo DO [facility] [address] [facility] [address] 04/15/2024 09:08:22 04/15/2024 09:39:50 Kidney stone 46217565 N20.0 per urology will be getting litho in may Acute urin ashley tract infection 229486283 N39.0 Hypothyroidism 52199450 E03.8 will adjust thyroid dose by taking 1/2 tab on mon and fri and will get back Health Concerns Section Related Observation LastModified by Organization Detai ls LastModified Time None Recorded Concern Status LastModified by Organization Details LastModified Time None Recorded Payers Encounter Date Sequence Insurance Name Policy Number Policy Linder Covered Member ID Linder Member ID Guarantor Name 04/15/2024 1 [facility] [id number] Jaja Gonzalez [id number] Jaja Gonzalez Notes Date Note Type Note Provider Name a nd Address Organization Details Recorded Time 04/15/2024 text/html here for swathi lobato her surgery fr kidney stonedid well but stone was impacted rleates that she has had significant increase in frequency of urination also has been shaky and jittery since last synthroid adjust Herminio Lo DO [address] [place], [address], [facility] 04/15/2024 09:39:03 OBGyn Episode No OBEpisode recorded.
== END 2024-04-20 11:22 | disposition home or self-care (01) ==
LOC: HO.XRAY 11:21
PROVIDERS: PCP Internal Medicine; Visit Provider Urology
DX: N20.1 Calculus of ureter (principal); Z96.0 Presence of urogenital implants; N13.30 Unspecified hydronephrosis
CPT/HCPCS: 74018

== ENCOUNTER → 2024-04-20 11:24 | Outpatient (BNV) | payer OTHER, SELFPAY | PROVIDERS: PCP Internal Medicine; Visit Provider Radiology Diagnostic Radiology | DX: N20.1 Calculus of ureter (principal) | CPT/HCPCS: 74018 ==

== ENCOUNTER 2024-04-24 13:24 | Outpatient (AMB) | payer OTHER, SELFPAY ==
--- NOTE | 2024-04-24 11:08 | A.OFFVIS_ITS ---
Intake Visit Reasons: Hydronephrosis- follow up/KUB (Set) Intake Note: Patient is Present for Follow Up KUB Results Urology Medication: Vesicare Antibiotic Allergies:Penicillins, Sulfa Blood Thinners: None Retort Setter Required: No Accompanied by: Self / Same As Patient Allergies Penicillins Allergy (Mild, Verified 04/24/24 13:25) Swelling Sulfa (Sulfonamide Antibiotics) Allergy (Verified 04/24/24 13:25) Rash Medication List - Last Reconciled 04/24/24 by Amber Blanco MD fluticasone furoate-vilanterol 200-25 mcg/dose (Breo Ellipta) 1 ea inhalation DAILY PRN levalbuterol tartrate 45 mcg/actuation 2 puffs inhalation Q4-6H levothyroxine (Synthroid) 112 mcg PO DAILY mirtazapine 15 mg PO BEDTIME PRN pravastatin 40 mg PO DAILY solifenacin (Vesicare) 5 mg PO BID HPI Comments Details: 04/24/24--s/p right ureteroscopy, (proximal ureteral stone impacted) ureteral stent on 04/07/24. KUB 04/20/24- ureteral stone remains proximal, stent in good position. Discussed ureteroscopy laser lithotripsy, stent exchange. Risks discussed included but not limited to, possible need to repeat procedure if stone is not completely fragmented, Irritative voiding symptoms, bladder spasms, urgency, blood in urine. Pt states still has bladder spasms even while taking the vesicare 5mg daily. I will have her increase to bid. 03/18/24--LV 02/21/24--Serena has been asymptomatic. Persistent right hydronephosis on fu renal us 03/11/24. recommend cystoscopy ureteroscopy, stent. 02/21/2024--I have reviewed CT findings: 01/08/24 with the patient which noticed a ureteral stone. The patient states she has no kidney pain or urinary symptoms. I will check an ultrasound kidney and bladder to fu hydronephrosis and ureteral stone, no enhancing renal mass noted. CTAT w/wo IV contrast- 01/07/34--There is a 6 mm obstructing calculus in the mid right ureter with moderate right hydroureteronephrosis. no suspicious renal mass. 07/26/2023--Serena has a history of kidney stones. She was initially evaluated on 06/11/2023. I discussed metabolic workup and she completed 24 hour urine on 07/02/2023. Discussed 24 hour urine results: Total volume 1.37 L, Calcium 82 mg; Oxalate 22 mg, Sodium 126, Citrate 522 mg. Instructed on importance of fluid intake, discussed increasing fluid intake to [address] imaging without IV contrast completed on 07/17/2023 which noted a indeterminate renal mass. Plan repeat CT with and without IV contrast follow-up in 6 months. 07/17/2023-- CTAP: Right kidney revealed speckled calcifications in the lower pole questionably associated with mass. nonobstructing 0.6 cm stone lower pole. Left kidney is unremarkable. 06/11/23--Serena is a 58-year-old female here for new patient evaluation. She has a history of kidney stones for about 4-5 years. She states that her prior urologist no longer takes her insurance. The patient states that on 05/07/[address] scan due to right flank pain. She has a report on her phone that I have reviewed. (office will have report faxed to my attention) The report indicated mild right hydronephrosis with 5 mm distal ureteral stone and other nonobstructing right kidney stones. Left kidney within normal limits. The patient had follow-up imaging with an ultrasound. The patient states that she no longer has pain. She denies any irritative voiding symptoms. I reviewed renal ultrasound report dated 06/05/2023-- right hydronephrosis, moderate, minimal cortical scarring as seen on prior CT on 05/07/2023 for left kidney within normal limits. Discussed re-evaluation with CT abdomen and pelvis without IV contrast. Diet sheet provided and reviewed with information regarding recommendations to reduce kidney stone production. She states that she is on a high-protein diet for weight management. Discussed 24 hour urine collection to be obtained. Follow up in 6 weeks [facility] Medical History Hx of mammogram Mixed hyperlipidemia Angioedema Migraine Fibromyalgia Hypothyroid Asthma Anxiety Impaired fasting blood sugar Surgical History History of dental surgery Hx of colonoscopy Family History Father No problems noted. Mother No problems noted. Social History Alcohol intake: current Alcohol intake frequency: holidays/special occasions only Patient Tobacco Use Status: Former Tobacco user Review of Systems Const All systems reviewed & are unremarkable except as noted in HPI and below Reports no additional complaints Eyes Reports no additional complaints ENT Reports no additional complaints Card Reports no additional complaints Resp Reports no additional complaints GI Reports no additional complaints Reports as per HPI Musc Reports no additional complaints Skin/Breast Reports system reviewed and no additional complaints, except as documented Neuro Reports no additional complaints Psych Reports no additional complaints Endo Reports no additional complaints James/Lymph Reports no additional complaints Aller/Immun Reports no additional complaints Telehealth Telehealth Telehealth Platform: [employer] Location of provider rendering services: practice address Location of patient: address on file Patient Identification confirmed using: Name, : Yes Telehealth method: video Patient verbally consented to treatment: Yes Patient verbally consented to billing insurance company: Yes Patient informed of any privacy concerns related to visit: Yes Assessment & Plan Assessment & Plan (1) Renal calculi: Code(s): N20.0 - Calculus of kidney Category: Medical (2) Hydronephrosis, right: Code(s): N13.30 - Unspecified hydronephrosis Category: Medical (3) Ureteral stone: Code(s): N20.1 - Calculus of ureter Category: Medical Plan cysto, Right ureteroscopy laser lithotripsy stent exchange Medications: Changed From solifenacin (Vesicare) 5 mg PO DAILY 30 tabs 1RF for bladder spasms To solifenacin (Vesicare) 5 mg PO BID 60 tabs 1RF for bladder spasms Patient Instructions: The patient had an opportunity to ask questions regarding treatment plan. The patient expressed understanding and agreement with the above treatment plan. The patient is aware they should contact our office by phone for worsening of their current condition or the appearance of new symptoms. Compliance is encouraged with any medications and followup testing that is ordered. It is a privilege to be allowed the opportunity to participate in the urologic care of your patient. If you have any questions or concerns regarding treatment for the above conditions please do not hesitate to contact me. The office telephone contact is [phone]. This note is constructed in part using voice recognition software. While every effort has been made to ensure accuracy canvas cutter machine errors may have been included. Yours sincerely, Amber Blanco MD Coding Level of Care Code Tele Est Pt Level 4 (45565) Diagnoses Renal calculi N20.0 Hydronephrosis, right N13.30 Ureteral stone N20.1
--- OUTSIDE RECORDS SUMMARY | 2024-04-24 15:57 | XMS_ITS | Continuity of Care Document ---
Author Organization [facility], [facility] Address 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 Patient Instructions Encounter Date Encounter Id Patient Instructions Last Modified By Organization Details Last Modified Time 04/15/2024 [id number] hypothyroidism: care instructions Not available 04/15/2024 09:38:10 Reason for Referral None Reported. Results Created Date Observation Date Name Description Value Unit Range Abnormal Flag Note LastModifiedBy Organization Detail LastModifiedTime 04/20/19 25 04/07/2024 fluor oscop y (PROC ) No observ ation record ed. [facility] (Medical Records) [address] [place], [address], 04/20/2024 09:10:32 04/22/19 25 04/20/2024 XR, abdom en No observ ation record ed. [facility] (Medical Records) [address] [place], [address], 04/22/2024 16:02:19 Result Notes None recorded. Problems Name Problem SNOMED Code Status Onset Date Resolution Date Notes Provider Name and Address Organization Details Recorded Time Herpes simplex 40490363 Active 2017 Not Available [facility] 3 15:48:15 Generaliz ed anxiety disorder 07959792 Active 2021 Not Available [facility] 3 15:48:14 Pain of right shoulder joint 973109030996 13916 Active 2022 JANETTE YODER [address] [place] [address], [address], [facility] 3 16:17:02 Bilateral wrist pain 071665504413 83447 Active 2022 JANETTE YODER [address] [place] [address], [address], [facility] 3 16:17:21 Kidney stone 26269929 Active 2023 JANETTE YODER [address] [place] [address], [address], [facility] 4 09:47:06 Acute otitis media 6686274 Active 2023 JANETTE YODER [address] [place] [address], [address], [facility] 4 16:21:41 Hyperthyr oidism 53507855 Active 2023 JANETTE YODER [address] [place], [address], [facility] 4 16:23:01 Dizziness 878007253 Active 2023 JANETTE YODER [address] [place], [address], [facility] 4 16:24:47 Acute otitis media 1831504 Active 2023 JANETTE YODER [address] [place] [address], [address], [facility] 4 15:12:09 Acute urinary tract infection 720099262 Active 2024 Herminio Lo DO [address] [place] [address], [address], [facility] 5 09:35:43 Asthma 700230754 Active 2017 Not Available [facility] 3 15:48:14 Hypothyro idism 21515311 Active 2017 Not Available [facility] 3 15:48:15 Fibromyal maggie 204174283 Active 2017 Not Available [facility] 3 15:48:14 Migraine 24250637 Active 2017 Not Available [facility] 3 15:48:14 Impaired fasting glycemia 968482392 Active 2017 Not Available [facility] 3 15:48:15 Angioedem a 47841596 Active 2017 Not Available [facility] 3 15:48:15 Eczema 42899726 Active 2017 Not Available [facility] 3 15:48:15 Mixed hyperlipi demia 220759640 Active 2017 Not Available [facility] 3 15:48:14 Anxiety 91377450 Active 2017 Not Available [facility] 3 15:48:15 Problem Notes None recorded. Procedures Surgical History Date Name Laterality Status Provider Name and Address Organization Details Recorded Time 12/11/19 24 Cerumen Removal completed JANETTE YODER [address] [place], [address], [facility] 12/11/2023 15:17:59 05/27/19 24 Colonoscopy completed Herminio Lo DO [address] [place], [address], [facility] 05/27/2023 16:07:28 04/14/19 19 Most Recent Mammogram completed Gema Sotelo [facility] 10/20/2018 16:15:30 04/09/19 19 Colonoscopy completed Ana Queen [facility] 04/09/2018 09:59:35 Imaging Results None recorded. Procedure Notes None recorded. Medical Equipment None Reported. Allergies Allergen ID Allergen Name Allergen Category Reaction Reaction Severity Criticality Documentation Date Start Date Code Code System Note Provider Name and Address Organization Details Recorded Time 189 Medicinal product containin g penicilli n and acting as antibacte rial agent (product) medicatio n Not available Not available Not available 10/21/2017 24375 05 SNOMED Gemaalfredito Sotelo [facility] 8 16:05:19 1893 Substance with sulfonami de structure and antibacte rial mechanism of action (substanc e) medicatio n Not available Not available Not available 10/21/2017 42237 [facility] 8 16:05:25 5814 lactose food,medi cation diarrhea severe Not available 10/02/2021 6211 RxNorm bleed ing recta lly Gladys Kamran [facility] 2 09:05:44 6992 Buspar medicatio n dizziness moderate Not available 10/03/2022 13213 0 RxNorm JANETTE YODER [address] [place], [address], [facility] 3 09:05:58 Medications Name Sig Start [...] e 50 mcg/actua tion nasal spray,kaur pension [place] 1 spray every day by intranas al [...] Updated DateTime 04/15/2024 160.02 cm 35.4 kg/m2 16789.47 g 120 mm[Hg] 80 mm[Hg] [facility] 09:16:24 Social History Question Answer Notes LastModified by Organizat ion Details LastModified Time Tobacco Smoking Status Former Smoker Not Available [facility] 02/09/2020 03:36:23 What Is Your Level Of [...] Of Your Most Recent Tobacco Screening? 04/15/2024 [email or web address] Information not available 04/15/2024 How Many Children [...] virus, quadrivalent, preservative 1 completed JANETTE YODER [address] [place] [address], [address], [facility] 05/17/2023 09:14:29 COVID-19, mRNA, LNP-S, PF, 30 mcg/0.3 mL dose 1 completed JANETTE YODER [address] [place] [address], [address], [facility] 05/17/2023 09:14:29 Influenza, split virus, quadrivalent, preservative 8 completed JANETTE YODER [address] [place] [address], [address], [facility] 05/17/2023 09:14:29 Influenza, split virus, trivalent, preservative 9 completed Not Available [facility] 06/17/2020 17:46:43 Influenza, split virus, quadrivalent, preservative 0 completed JANETTE YODER [address] [place] [address], [address], [facility] 05/17/2023 09:14:29 COVID-19, mRNA, LNP-S, PF, 30 mcg/0.3 mL dose 0 completed JANETTE YODER [address] [place] [address], [address], [facility] 05/17/2023 09:14:29 COVID-19, mRNA, LNP-S, PF, 30 mcg/0.3 mL dose 1 completed JANETTE YODER [address] [place] [address], [address], [facility] 05/17/2023 09:14:29 zoster recombinant 1 completed JANETTE YODER [address] [place], [address], [facility] 05/17/2023 09:14:29 Past Encounters Encounter ID Performer Location Encounter Start Date Encounter Closed Date Diagnosis/Indication Diagnosis SNOMED-CT Code Diagnosis ICD10 Code Diagnosis Note [id number] Herminio Lo DO [facility] [address] [facility] [address] 04/15/2024 09:08:22 04/15/2024 09:39:50 Kidney stone 64561464 N20.0 per urology will be getting litho in may Acute urin ashley tract infection 720536081 N39.0 Hypothyroidism 21814915 E03.8 will adjust thyroid dose by taking 1/2 tab on mon and fri and will get back Health Concerns Section Related Observation LastModified by Organization Detai ls LastModified Time None Recorded Concern Status LastModified by Organization Details LastModified Time None Recorded Payers Encounter Date Sequence Insurance Name Policy Number Policy Linder Covered Member ID Linder Member ID Guarantor Name 04/15/2024 1 [facility] [id number] Jaja Gonzalez [id number] Jaja Gonzalez Notes Date Note Type Note Provider Name a nd Address Organization Details Recorded Time 04/15/2024 text/html here for swathi lobato her surgery fr kidney stonedid well but stone was impacted rleates that she has had significant increase in frequency of urination also has been shaky and jittery since last synthroid adjust Herminio Lo DO [address] [place], [address], [facility] 04/15/2024 09:39:03 OBGyn Episode No OBEpisode recorded.
== END 2024-04-24 14:09 | disposition home or self-care (01) ==
LOC: HO.HUSH 13:24
PROVIDERS: PCP Internal Medicine; Visit Provider Urology
DX: N20.0 Calculus of kidney (principal); N13.30 Unspecified hydronephrosis; N20.1 Calculus of ureter
CPT/HCPCS: 99214

== ENCOUNTER → 2024-04-24 13:24 | Outpatient (BNVA) | payer OTHER, SELFPAY | PROVIDERS: PCP Internal Medicine; Visit Provider Urology ==

== ENCOUNTER 2024-05-12 10:46 | Day surgery (SDC) | payer OTHER, SELFPAY ==
--- OUTSIDE RECORDS SUMMARY | 2024-04-17 06:36 | XMS_ITS | Continuity of Care Document ---
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 MUST MEET 2 OUT OF 3 ELEMENTS: PROBLEMS, DATA OR RISK ELEMENT 1: PROBLEMS ADDRESSED 1 OR MORE CHRONIC ILLNESS WITH EXACERBATION OR 2 OR MORE STABLE CHRONIC ILLNESSES OR 1 UNDIAGNOSED NEW PROBLEM OR 1 ACUTE ILLNESS W/SYMPTOMS OR 1 ACUTE COMPLICATED INJURY ELEMENT 2: DATA MUST MEET 1 OF 3 CATEGORIES CATEGORY 1: REVIEW OF PRIOR EXTERNAL NOTES, REVIEW OF RESULTS, ORDERING OF EACH TEST, ASSESSMENT REQUIRING INDEPENDENT HISTORIAN OR CATEGORY 2: INDEPENDENT INTERPRETATION OF TESTS BY ANOTHER PHYSICIAN OR SPECIALIST OR CATEGORY 3: DISCUSSION OF MGT OR TEST INTERPRETATION W/EXTERNAL PHYSICIAN OR SPECIALIST ELEMENT 3: RISK RISK OF COMPLICATIONS AND/OR MORBIDITY OR MORTALITY OF PATIENT MANAGEMENT PROVIDER MUST THOROUGHLY DOCUMENT EACH ELEMENT THAT IS COVERED Not available 04/15/2024 09:35:19 Plan of Treatment Reminders Order Date Submit Date Provider Last Modified By Organization Details Last Modified Time Details Appointments ANNUAL EXAM 2024 01:30P M JANETTE YODER Not available Not available Not available Lab None recorded. Referral None recorded. Procedures None recorded. Surgeries None recorded. Imaging None recorded. Medication Orders nitrofura ntoin monohydra te/macroc rystals 100 mg capsule 2024 025 [facility], [address] [place], [address], 04/15/2024 09:36:54 Patient TargetsNo targets recorded. Patient Instructions Encounter Date Encounter Id Patient Instructions Last Modified By Organization Details Last Modified Time 04/15/2024 [id number] hypothyroidism: care instructions Not available 04/15/2024 09:38:10 Reason for Referral None Reported. Problems Name Problem SNOMED Code Status Onset Date Resolution Date Notes Provider Name and Address Organization Details Recorded Time Herpes simplex 96293110 Active 2017 Not Available [facility] 3 15:48:15 Generaliz ed anxiety disorder 37747360 Active 2021 Not Available [facility] 3 15:48:14 Pain of right shoulder joint 344520095883 32808 Active 2022 JANETTE YODER [address] [place] [address], [phone], [facility] 3 16:17:02 Bilateral wrist pain 118999262359 76525 Active 2022 JANETTE YODER [address] [place] [address], [phone], [facility] 3 16:17:21 Kidney stone 16492604 Active 2023 JANETTE YODER [address] [place] [address], [phone], [facility] 4 09:47:06 Acute otitis media 3142688 Active 2023 JANETTE YODER [address] [place] [address], [phone], [facility] 4 16:21:41 Hyperthyr oidism 41365475 Active 2023 JANETTE YODER [address] [place] [address], [phone], [facility] 4 16:23:01 Dizziness 713588137 Active 2023 JANETTE YODER [address] [place] [address], [phone], [facility] 4 16:24:47 Acute otitis media 1065352 Active 2023 JANETTE YODER [address] [place] [address], [phone], [facility] 4 15:12:09 Acute urinary tract infection 873207873 Active 2024 Herminio Lo DO [address] [place] [address], [address], [facility] 5 09:35:43 Asthma 466711418 Active 2017 Not Available [facility] 3 15:48:14 Hypothyro idism 83013035 Active 2017 Not Available [facility] 3 15:48:15 Fibromyal maggie 214263630 Active 2017 Not Available [facility] 3 15:48:14 Migraine 32616362 Active 2017 Not Available [facility] 3 15:48:14 Impaired fasting glycemia 164406267 Active 2017 Not Available [facility] 3 15:48:15 Angioedem a 88058615 Active 2017 Not Available [facility] 3 15:48:15 Eczema 67578604 Active 2017 Not Available [facility] 3 15:48:15 Mixed hyperlipi demia 386524626 Active 2017 Not Available [facility] 3 15:48:14 Anxiety 25899494 Active 2017 Not Available [facility] 3 15:48:15 Problem Notes None recorded. Procedures Surgical History Date Name Laterality Status Provider Name and Address Organization Details Recorded Time 12/11/19 24 Cerumen Removal completed JANETTE YODER [address] [place] [address], [phone], [facility] 12/11/2023 15:17:59 05/27/19 24 Colonoscopy completed Herminio Lo DO [address] [place] [address], [phone], [facility] 05/27/2023 16:07:28 04/14/19 19 Most Recent Mammogram completed Gema Sotelo [facility] 10/20/2018 16:15:30 04/09/19 19 Colonoscopy completed Ana [facility] 04/09/2018 09:59:35 Imaging Results None recorded. Procedure Notes None recorded. Medical Equipment None Reported. Allergies Allergen ID Allergen Name Allergen Category Reaction Reaction Severity Criticality Documentation Date Start Date Code Code System Note Provider Name and Address Organization Details Recorded Time 1892 Medicinal product containin g penicilli n and acting as antibacte rial agent (product) medicatio n Not available Not available Not available 10/21/2017 77937 [facility] 8 16:05:19 1893 Substance with sulfonami de structure and antibacte rial mechanism of action (substanc e) medicatio n Not available Not available Not available 10/21/2017 58927 8003 [facility] 8 16:05:25 5814 lactose food,medi cation diarrhea severe Not available 10/02/2021 6211 RxNorm bleed ing recta lly Gladys aguilar [facility] 2 09:05:44 6992 Buspar medicatio n dizziness moderate Not available 10/03/2022 10958 0 RxNorm JANETTE YODER [address] [place] [address], [phone], [facility] 3 09:05:58 Medications Name Sig Start [...] PLEASE SEE ATTACHED FOR DETAILED DIRECTIO NS 04/15 completed Not Available Not Available Not Available doxycycli ne hyclate 100 mg capsule [...] MOUTH EVERY 12 HOURS FOR 7 DAYS 04/15 completed Not Available Not Available Not Available acetamino phen 500 mg tablet TAKE [...] Not Available Not Available No t Available oxycodone -acetamin ophen 5 mg-325 mg tablet TAKE 1 TABLET BY MOUTH EVERY 6 TO 8 HOURS NEEDED FOR PAIN FOR 3 DAYS active Not Available Not Available No t Available alprazola m 0.25 mg tablet 10/02 completed Not Available Not Available Not Available clindamyc in 1 % topical gel 03/28 completed Not Available Not Available Not Available tamsulosi n 0.4 mg capsule TAKE 1 CAPSULE BY MOUTH AT BEDTIME FOR TO HELP PASS STONE 04/15 completed Not Available Not Available Not Available meclizine 25 mg tablet TAKE 1 [...] TAKE 1 TABLET BY MOUTH EVERY DAY active Not Available Not Available No t Available clobetaso l 0.05 % topical ointment 04/23 [...] e 50 mcg/actua tion nasal spray,[employer] 1 spray every day by intranas al [...] ntoin monohydra te/macroc rystals 100 mg capsule Take 1 capsule every 12 hours by oral route for 3 days. 2024 active Not Available Not Available Not Avai lable Gas Relief Extra Strength 125 mg chewable tablet CHEW AND SWALLOW 3 TABLETS WHILE DRINKING THE SECOND DOSE OF PREP active Not Available Not Available No t Available solifenac in 5 mg tablet TAKE 1 TABLET BY MOUTH EVERY DAY FOR BLADDER SPASMS active Not Available Not Available No t Available levalbute rol HFA 45 mcg/actua tion aerosol inhaler INHALE 2 PUFFS BY MOUTH EVERY 6 HOURS FOR 30 DAYS active Not Available Not Available No t Available Boostrix Tdap 2.5 Lf unit-8 mcg-5 Lf/0.5 [...] solution TAKE 4000ML ORALLY DIRECTED 1 DAYS 04/15 completed Not Available Not Available Not Available Breo Ellipta 200 mcg-25 mcg/dose powder [...] Available Not Available Vitals Date Recorded Body height Body mass index (BMI) Body weight Systolic blood pressure Diastolic blood pressure Provider Name and Address Organization Details Last Updated DateTime 04/15/2024 160.02 cm 35.4 kg/m2 30850.47 g 120 mm[Hg] 80 mm[Hg] [facility] 5 09:16:24 Social History Question Answer Notes LastModified by Organizat ion Details LastModified Time Tobacco Smoking Status Former Smoker Not Available [facility] 02/09/2020 03:36:23 What Is Your Level [...] Date Of Your Most Recent Tobacco Screening? 04/15/2024 [email or web address] Information not available 04/15/2024 How Many Children Do You Have? 0 [...] History Condition Response Coronary Artery Disease N Gout N Other N Blood Diseases N Kidney Stones N Blood Transfusion N Breast Cancer N Lung Disease N Depression N COPD N Defects or Inherited Disease N Anxiety [...] virus, quadrivalent, preservative 1 completed JANETTE YODER [address] [place] [address], [phone], [facility] 05/17/2023 09:14:29 COVID-19, mRNA, LNP-S, PF, 30 mcg/0.3 mL dose 1 completed JANETTE YODER [address] [place] [address], [phone], [facility] 05/17/2023 09:14:29 Influenza, split virus, quadrivalent, preservative 8 completed JANETTE YODER [address] [place] [address], [phone], [facility] 05/17/2023 09:14:29 Influenza, split virus, trivalent, preservative 9 completed Not Available [facility] 06/17/2020 17:46:43 Influenza, split virus, quadrivalent, preservative 0 completed JANETTE YODER [address] [place] [address], [phone], [facility] 05/17/2023 09:14:29 COVID-19, mRNA, LNP-S, PF, 30 mcg/0.3 mL dose 0 completed JANETTE YODER [address] [place] [address], [phone], [facility] 05/17/2023 09:14:29 COVID-19, mRNA, LNP-S, PF, 30 mcg/0.3 mL dose 1 completed JANETTE YODER [address] [place] [address], [phone], [facility] 05/17/2023 09:14:29 zoster recombinant 1 completed JANETTE YODER [address] [place] [address], [phone], [facility] 05/17/2023 09:14:29 Past Encounters Encounter ID Performer Location Encounter Start Date Encounter Closed Date Diagnosis/Indication Diagnosis SNOMED-CT Code Diagnosis ICD10 Code Diagnosis Note [id number] Herminio Lo [facility] [address] [address] 04/15/2024 09:08:22 04/15/2024 09:39:50 Kidney stone 33005971 N20.0 per urology will be getting litho in may Acute urin ashley tract infection 843715656 N39.0 Hypothyroidism 96276275 E03.8 will adjust thyroid dose by taking 1/2 tab on mon and fri and will get back Health Concerns Section Related Observation LastModified by Organization Detai ls LastModified Time None Recorded Concern Status LastModified by Organization Details LastModified Time None Recorded Payers Encounter Date Sequence Insurance Name Policy Number Policy Linder Covered Member ID Linder Member ID Guarantor Name 04/15/2024 1 [facility] [id number] Jaja Gonzalez [id number] Jaja Gonzalez Notes Date Note Type Note Provider Name a nd Address Organization Details Recorded Time 04/15/2024 text/html here for swathi lobato her surgery fr kidney stonedid well but stone was impacted rleates that she has had significant increase in frequency of urination also has been shaky and jittery since last synthroid adjust Herminio Lo, DO [address], [place], [address], [facility] 04/15/2024 09:39:03 OBGyn Episode No OBEpisode recorded.
--- NOTE | 2024-05-11 12:05 | HO.ANESPROP2 ---
Documented by User: My Vital NP 05/11/24 12:06 HPI - Anesthesia Eval Consult details Narrative: 59yo F for ?Cystoscopy, Ureteroroscopy, Retro, Laser,with stent exchange s/p same 03/2024 with [facility]-LMA 4 PMFSH Active Problems Active Problems: All Active Problems UTI (urinary tract infection) (Acute) S/P ureteral stent placement (Acute) Ureteral stone (Acute) Renal mass of unknown nature (Acute) Renal mass (Acute) Renal calculi (Acute) Hydronephrosis, right (Acute) History of kidney stones (Acute) Past Medical History Medical History Hx of mammogram Mixed hyperlipidemia Angioedema Migraine Fibromyalgia Hypothyroid Asthma Anxiety Impaired fasting blood sugar Family History Family History Father No problems noted. Mother No problems noted. Family history of problems with anesthesia: No Surgical History Surgical History History of dental surgery Hx of colonoscopy History of Problems with Anesthesia: No Social History Social History Are you a primary healthcare customer service to a significant other at home: No Do you presently have visiting nurse or other home services: No Alcohol intake: current Alcohol intake frequency: holidays/special occasions only Patient Tobacco Use Status: Former Tobacco user Have you been hit, kicked, punched, or otherwise hurt by someone within the past year? If so, by whom?: No Are you DNR?: No Advance Directives: No Advance Directives Information Provided: Yes Recently lost weight without trying: No Nutrition Risks: No Nutritional Risk Meds Allergies Allergy/AdvReac Type Severity Reaction Status Date / Time Penicillins Allergy Mild Anaphylaxis Verified 05/12/24 11:07 Sulfa (Sulfonamide Allergy Rash Verified 05/12/24 11:07 Antibiotics) Home Medications ?Medication ?Instructions ?Recorded ?Confirmed ?Last Taken ?Type fluticasone furoate 200 1 ea inhalation DAILY PRN 06/11/23 05/12/24 Unknown History mcg-vilanterol 25 mcg/dose Shortness Of Breath Or Wheezing inhalation powder (Breo Ellipta) levalbuterol tartrate 45 2 puff inhalation Q4-6H 06/11/23 05/12/24 Unknown History mcg/actuation aerosol inhaler levothyroxine 112 mcg tablet 112 mcg PO DAILY 06/11/23 05/12/24 Unknown History (Synthroid) mirtazapine 15 mg tablet 15 mg PO BEDTIME PRN Insomnia 06/11/23 05/12/24 Unknown History pravastatin 40 mg tablet 40 mg PO DAILY 06/11/23 05/12/24 Unknown History Assessment and Plan Assessment Anesthesia Assessment: Chart Reviewed Final Anesthetic Review Family History of Problems with Anesthesia: No History of Problems with Anesthesia: No Documented by User: Betsey Bhat MD 05/12/24 13:43 HPI - Anesthesia Eval Consult details Narrative: 59yo F for ?Cystoscopy, Right Ureteroroscopy, Retro, Laser, stent exchange Right ureter s/p same 03/2024 with [facility]-LMA 4 PMFSH Active Problems Active Problems: All Active Problems UTI (urinary tract infection) (Acute) S/P ureteral stent placement (Acute) Ureteral stone (Acute) Renal mass of unknown nature (Acute) Renal mass (Acute) Renal calculi (Acute) Hydronephrosis, right (Acute) History of kidney stones (Acute) Increased BMI Denies DEVAN Asthma- has not needed inhaler in 2 years Past Medical History Medical History Hx of mammogram Mixed hyperlipidemia Angioedema Migraine Fibromyalgia Hypothyroid Asthma Anxiety Impaired fasting blood sugar Family History Family History Father No problems noted. Mother No problems noted. Family history of problems with anesthesia: No Surgical History Surgical History History of dental surgery Hx of colonoscopy History of Problems with Anesthesia: No Social History Social History Are you a primary healthcare customer service to a significant other at home: No Do you presently have visiting nurse or other home services: No Alcohol intake: current Alcohol intake frequency: holidays/special occasions only Patient Tobacco Use Status: Former Tobacco user Have you been hit, kicked, punched, or otherwise hurt by someone within the past year? If so, by whom?: No Are you DNR?: No Advance Directives: No Advance Directives Information Provided: Yes Recently lost weight without trying: No Nutrition Risks: No Nutritional Risk Meds Allergies Allergy/AdvReac Type Severity Reaction Status Date / Time Penicillins Allergy Mild Anaphylaxis Verified 05/12/24 11:07 Sulfa (Sulfonamide Allergy Rash Verified 05/12/24 11:07 Antibiotics) Home Medications ?Medication ?Instructions ?Recorded ?Confirmed ?Last Taken ?Type fluticasone furoate 200 1 ea inhalation DAILY PRN 06/11/23 05/12/24 Unknown History mcg-vilanterol 25 mcg/dose Shortness Of Breath Or Wheezing inhalation powder (Breo Ellipta) levalbuterol tartrate 45 2 puff inhalation Q4-6H 06/11/23 05/12/24 Unknown History mcg/actuation aerosol inhaler levothyroxine 112 mcg tablet 112 mcg PO DAILY 06/11/23 05/12/24 Unknown History (Synthroid) mirtazapine 15 mg tablet 15 mg PO BEDTIME PRN Insomnia 06/11/23 05/12/24 Unknown History pravastatin 40 mg tablet 40 mg PO DAILY 06/11/23 05/12/24 Unknown History Exam Height,Weight and Vital Signs: Height 5 ft 3 in Weight 90.718 kg Vital Signs Temp Pulse Resp BP Pulse Ox O2 Del Method 05/12/24 11:23 98.2 F 77 18 153/78 H 96 Room Air Airway Mallampati Class: III TM Dist: >3cm Neck ROM: Full Loose/Missing/Broken Teeth: Yes (Missing 2 teeth bottom left back. Denies broken or loose teeth) Heart: RRR Lungs: CTAB Assessment and Plan Assessment Anesthesia Assessment: Anesthesia Plan Discussed and Chart Reviewed Final Anesthetic Review Family History of Problems with Anesthesia: No History of Problems with Anesthesia: No NPO: Yes ASA Class: II Final Preanesthetic Review: No Changes in Pt Med Stat, Meds/Allgs Chart Reviewed, Consent Obtained/Reviewed and Anes Risks/Benef Reviewed Patient Risk: Intermediate Procedure Risk: Low Assessment/Block/Sedation in SS: Assess/Block/Sedation-SS Anesthetic Plan Anesthetic Plan: GA Disposition: Standard PACU
--- NOTE | ~2024-05-12 | FL_ITS ---
EXAMINATION: FL GUIDANCE ONLY HISTORY: CYTOSCOPY, URETEROSCOPY, RETRO, LASER WITH STENT COMPARISON: Correlation is made with a CT of the abdomen dated 01/08/2024. TECHNIQUE: Fluoroscopy time: 38.7 seconds. Cumulative Dose: 15.18 mGy.2 Images: . FINDINGS: Images demonstrate placement of a right nephroureteral stent. FL/FL guidance in OR IMPRESSION: Fluoroscopy during procedure. Please see procedure report for additional information. Electronically signed by: Nas Guan MD 05/12/2024 03:19 PM OTONIEL
[2024-05-12 11:23] VITALS: BP 153/78; PULSE 77; RESP 18; TEMP 36.8; O2SAT 96
[2024-05-12] MEDS: Lactated Ringers 1,000 ML 100 ML IVCONT (11:28)
[2024-05-12 11:38] VITALS: BMI 35.4
--- OUTSIDE RECORDS SUMMARY | 2024-05-12 11:40 | XMS_ITS | Continuity of Care Document ---
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 Patient Instructions Encounter Date Encounter Id Patient Instructions Last Modified By Organization Details Last Modified Time 04/15/2024 [id number] hypothyroidism: care instructions Not available 04/15/2024 09:38:10 Reason for Referral None Reported. Results Created Date Observation Date Name Description Value Unit Range Abnormal Flag Note LastModifiedBy Organization Detail LastModifiedTime 04/20/19 25 04/07/2024 fluor oscop y (PROC ) No observ ation record ed. [facility] (Medical Records) [address] [place], [address], 04/20/2024 09:10:32 04/22/19 25 04/20/2024 XR, abdom en No observ ation record ed. [facility] (Medical Records) [address] [place], [address], 04/22/2024 16:02:19 Result Notes None recorded. Problems Name Problem SNOMED Code Status Onset Date Resolution Date Notes Provider Name and Address Organization Details Recorded Time Herpes simplex 99275979 Active 2017 Not Available [facility] 3 15:48:15 Generaliz ed anxiety disorder 59124151 Active 2021 Not Available [facility] 3 15:48:14 Pain of right shoulder joint 700364065260 17735 Active 2022 JANETTE YODER [address] [place] [address], [address], [facility] 3 16:17:02 Bilateral wrist pain 613587297295 27528 Active 2022 JANETTE YODER [address] [place] [address], [address], [facility] 3 16:17:21 Kidney stone 77213546 Active 2023 JANETTE YODER [address] [place] [address], [address], [facility] 4 09:47:06 Acute otitis media 3035055 Active 2023 JANETTE YODER [address] [place] [address], [address], [facility] 4 16:21:41 Hyperthyr oidism 03807819 Active 2023 JANETTE YODER [address] [place], [address], [facility] 4 16:23:01 Dizziness 607269376 Active 2023 JANETTE YODER [address] [place] [address], [address], [facility] 4 16:24:47 Acute otitis media 3396629 Active 2023 JANETTE YODER [address] [place] [address], [address], [facility] 4 15:12:09 Acute urinary tract infection 335341546 Active 2024 Herminio Lo DO [address] [place] [address], [address], [facility] 5 09:35:43 Asthma 969132967 Active 2017 Not Available [facility] 3 15:48:14 Hypothyro idism 50213283 Active 2017 Not Available [facility] 3 15:48:15 Fibromyal maggie 319769730 Active 2017 Not Available [facility] 3 15:48:14 Migraine 63496052 Active 2017 Not Available [facility] 3 15:48:14 Impaired fasting glycemia 083845439 Active 2017 Not Available [facility] 3 15:48:15 Angioedem a 40100257 Active 2017 Not Available [facility] 3 15:48:15 Eczema 89795696 Active 2017 Not Available [facility] 3 15:48:15 Mixed hyperlipi demia 497428205 Active 2017 Not Available [facility] 3 15:48:14 Anxiety 60256055 Active 2017 Not Available [facility] 3 15:48:15 Problem Notes None recorded. Procedures Surgical History Date Name Laterality Status Provider Name and Address Organization Details Recorded Time 12/11/19 24 Cerumen Removal completed JANETTE YODER [address] [place], [address], [facility] 12/11/2023 15:17:59 05/27/19 24 Colonoscopy completed Herminio Lo DO [address] [place], [address], [facility] 05/27/2023 16:07:28 04/14/19 19 Most Recent Mammogram completed Gema Sotelo [facility] 10/20/2018 16:15:30 04/09/19 19 Colonoscopy completed Ana Queen [facility] 04/09/2018 09:59:35 Imaging Results None recorded. Procedure Notes None recorded. Medical Equipment None Reported. Allergies Allergen ID Allergen Name Allergen Category Reaction Reaction Severity Criticality Documentation Date Start Date Code Code System Note Provider Name and Address Organization Details Recorded Time 1891 Product containin g penicilli n and antibioti c (product) medicatio n Not available Not available Not available 10/21/2017 23021 05 SNOMED Gemaalfredito Sotelo [facility] 8 16:05:19 1893 Substance with sulfonami de structure and antibacte rial mechanism of action (substanc e) medicatio n Not available Not available Not available 10/21/2017 26503 8003 SNOMED Gemaalfredito Sotelo [facility] 8 16:05:25 5814 lactose food,medi cation diarrhea severe Not available 10/02/2021 6211 RxNorm bleed ing recta lly Gladys Kamran [facility] 2 09:05:44 6992 Buspar medicatio n dizziness moderate Not available 10/03/2022 01847 0 RxNorm JANETTE YODER [address] [place], [address], [facility] 3 09:05:58 Medications Name Sig Start [...] Not Available Not Available No t Available levofloxa anton 500 mg tablet active Not Available Not Available No t [...] e 50 mcg/actua tion nasal spray,kaur pension [place] 1 spray every day by intranas al [...] hours by oral route for 3 days. active Not Available Not Available No t Available Gas Relief Extra Strength 125 mg [...] Updated DateTime 04/15/2024 160.02 cm 35.4 kg/m2 89039.47 g 120 mm[Hg] 80 mm[Hg] [facility] 09:16:24 Social History Question Answer Notes LastModified by Organizat ion Details LastModified Time Tobacco Smoking Status Former Smoker Not Available [facility] 02/09/2020 03:36:23 What Is Your [...] Of Your Most Recent Tobacco Screening? 04/15/2024 Information not available 04/15/2024 How Many Children [...] N Blood Diseases N Kidney Stones N Breast Cancer N Blood Transfusion N Lung Disease N Depression N COPD [...] virus, quadrivalent, preservative 1 completed JANETTE YODER [address] [place] [address], [address], [facility] 05/17/2023 09:14:29 COVID-19, mRNA, LNP-S, PF, 30 mcg/0.3 mL dose 1 completed JANETTE YODER [address] [place] [address], [address], [facility] 05/17/2023 09:14:29 Influenza, split virus, quadrivalent, preservative 8 completed JANETTE YODER [address] [place] [address], [address], [facility] 05/17/2023 09:14:29 Influenza, split virus, trivalent, preservative 9 completed Not Available [facility] 06/17/2020 17:46:43 Influenza, split virus, quadrivalent, preservative 0 completed JANETTE YODER [address] [place] [address], [address], [facility] 05/17/2023 09:14:29 COVID-19, mRNA, LNP-S, PF, 30 mcg/0.3 mL dose 0 completed JANETTE YODER [address] [place] [address], [address], [facility] 05/17/2023 09:14:29 COVID-19, mRNA, LNP-S, PF, 30 mcg/0.3 mL dose 1 completed JANETTE YODER [address] [place] [address], [address], [facility] 05/17/2023 09:14:29 zoster recombinant 1 completed JANETTE YODER [address] [place], [address], [facility] 05/17/2023 09:14:29 Past Encounters Encounter ID Performer Location Encounter Start Date Encounter Closed Date Diagnosis/Indication Diagnosis SNOMED-CT Code Diagnosis ICD10 Code Diagnosis Note [id number] Herminio Lo DO [facility] Internal Medicine [address] [facility] [address] 04/15/2024 09:08:22 04/15/2024 09:39:50 Kidney stone 28543824 N20.0 per urology will be getting litho in may Acute urin ashley tract infection 333578391 N39.0 Hypothyroidism 86049669 E03.8 will adjust thyroid dose by taking 1/2 tab on mon and fri and will get back Health Concerns Section Related Observation LastModified by Organization Detai ls LastModified Time None Recorded Concern Status LastModified by Organization Details LastModified Time None Recorded Payers Encounter Date Sequence Insurance Name Policy Number Policy Linder Covered Member ID Linder Member ID Guarantor Name 04/15/2024 1 [facility] [id number] Jaja Gonzalez [id number] Jaja Gonzalez Notes Date Note Type Note Provider Name a nd Address Organization Details Recorded Time 04/15/2024 text/html here for swathi lobato her surgery fr kidney stonedid well but stone was impacted rleates that she has had significant increase in frequency of urination also has been shaky and jittery since last synthroid adjust Herminio Lo DO [address] [place], [address], [facility] 04/15/2024 09:39:03 OBGyn Episode No OBEpisode recorded.
--- OUTSIDE RECORDS SUMMARY | 2024-05-12 11:40 | XMS_ITS | Data Portability ---
Author Organization [facility] Home Service Address [address] [place] [address] Assessment Encounter Date Assessment Date Assessment LastModified by Organization Details LastModified Time 05/17/2023 05/17/2023 Patient agreed and verbally consents to this audio and video Telehealth appt via a secure platform [email or web address] Not available 05/17/2023 09:47:46 04/15/2024 04/15/2024 [address] [place] [id number] (FULLERETTE) MDM MODERATE MUST MEET 2 OUT OF [...] CMP, serum or plasma 2023 0809 024 [facility], [address] [place] [address], [place], [address], 11/15/2023 16:32:39 hemoglobi n A1c, QN, blood 2023 024 [facility], [address] [place] [address], [address], 11/15/2023 16:32:39 lipid panel, serum 2023 024 [facility], [address] [place] [address], [address], 11/15/2023 16:32:39 CBC w/ auto diff 2023 024 [facility], [address] [place] [address], [address], 11/15/2023 16:32:39 T3, free, serum or plasma 2023 024 [facility], [address] [place] [address], [address], 11/15/2023 16:25:01 tsi (thyroid- stimulati ng immunoglo bulin), serum 2023 024 [facility], [address] [place] [address], [address], 11/15/2023 16:25:01 thyroid peroxidas e (tpo) Ab, serum 2023 024 [facility], [address] [place] [address], [address], 11/15/2023 16:25:01 C reactive protein, QN, serum or plasma 2023 024 [facility], [address] [place] [address], [address], 11/15/2023 16:25:00 ESR (erythroc yte sedimenta tion rate), blood 2023 024 [facility], [address] [place] [address], [place], [address], 11/15/2023 16:25:01 TSH + free T4, serum 2023 024 [facility], [address] [facility], [place], [address], 11/15/2023 16:25:01 TSH + free T4, serum 2023 024 [facility], [address] [facility], [place], [address], 11/15/2023 16:39:56 TSH + free T4, serum 2023 024 [facility], [place], [address], 12/11/2023 15:18:48 T3, free, serum or plasma 2023 024 [facility], [place], [address], 12/11/2023 15:18:48 Referral urologist referral - recent ER trip for R kidney stone 2023 024 [email or web address] Ascencion Sanches MD, [address] [place] [address] Stas Gusman, [place], [address], 05/20/2023 08:42:25 Procedures None recorded. Surgeries None recorded. Imaging XR, wrist, 3 or more view 2022 023 [email or web address] Not available 03/26/2023 08:28:25 XR, wrist, 3 or more view 2022 023 ANIL Not available 03/25/2023 15:37:41 XR, shoulder, 2 or more view 2022 023 ANIL Not available 03/25/2023 15:39:23 US, kidney 2023 024 [email or web address] [facility], [place], [address], 05/22/2023 10:18:20 Medication Orders Breo Ellipta 200 mcg-25 mcg/dose powder for inhalatio n 2022 023 [email or web address] [facility]/Pharmacy #5, [address] [place], [address], 03/20/2023 08:57:53 neomycin- polymyxin -hydrocor t 3.5 mg-10,000 unit/mL-1 % ear drops,kaur p [address] [facility]/Pharmacy #2024, [address] [place], [address], 11/15/2023 16:22:17 meclizine 25 mg tablet 2023 024 [facility] [address] [place], [address], 11/15/2023 16:25:26 triamcino lone acetonide 0.1 % topical cream 2023 024 [facility] [address] [place] [address], [address], 11/15/2023 16:31:44 prednison e 10 mg tablet 2023 025 [facility] [address] [place], [address], 04/15/2024 09:14:48 ciproflox acin 500 [address] tablet [address] [facility]/Pharmacy #2024, [address] [place], [address], 04/15/2024 09:14:08 nitrofura ntoin monohydra te/macroc rystals 100 mg capsule 2024 025 [facility] [address] [place], [address], 04/15/2024 09:36:54 Patient TargetsNo targets recorded. Patient Instructions Encounter Date Encounter Id Patient Instructions Last Modified By Organization Details Last Modified Time 04/15/2024 [id number] hypothyroidism: care instructions Not available 04/15/2024 09:38:10 [...] more view No observ ation record ed. [address], [address], 03/25/2023 15:54:38 03/25/20 23 03/21/2023 XR, wrist , 3 or more view No observ ation record ed. [address], [address], 03/25/2023 15:54:38 03/25/20 23 03/21/2023 XR, shoul brooke, 2 or more view No observ ation record ed. [address], [address], 03/25/2023 15:54:39 06/05/19 24 06/05/2023 US, kidne y No observ ation record ed. [email or web address] [facility] [address] [facility], [place], [address], 06/05/2023 16:03:12 07/18/19 24 07/17/2023 CT, chest , w/o contr ast No observ ation record ed. [email or web address] [place] [address] (Medical Records) [address] [place], [address], 07/19/2023 08:35:01 10/08/19 24 10/07/2023 MAMMO , scree tanesha, digit al, bilat eral No observ ation record ed. [email or web address] [facility] [address] [place], [address], 10/08/2023 08:00:38 01/08/20 24 01/08/2024 CT, abdom en, w/wo contr ast No observ ation record ed. [email or web address] [facility] (Medical Records) [address] [place], [address], 01/08/2024 14:22:25 03/12/20 24 03/11/2024 US, retro perit oneum No observ ation record ed. [email or web address] [facility] (Medical Records) [address] [place], [address], 03/13/2024 08:25:53 04/20/19 25 04/07/2024 fluor oscop y (PROC ) No observ ation record ed. [facility] (Medical Records) [address] [place], [address], 04/20/2024 09:10:32 04/22/1904/20/2024 XR, abdom en No observ ation record ed. [facility] (Medical Records) [address] [place], [address], 04/22/2024 16:02:19 Result Notes None recorded. Problems Name Problem SNOMED Code Status Onset Date Resolution Date Notes Provider Name and Address Organization Details Recorded Time Herpes simplex 47531259 Active 2017 Not Available [facility] 3 15:48:15 Generaliz ed anxiety disorder 77200176 Active 2021 Not Available [facility] 3 15:48:14 Pain of right shoulder joint 869435467556 10686 Active 2022 JANETTE YODER [address] [place] [address], [address], [facility] [place], [facility] 3 16:17:02 Bilateral wrist pain 014552624616 08425 Active 2022 JANETTE YODER [address] [place], [address], [facility] [place] 3 16:17:21 Kidney stone 30579208 Active 2023 JANETTE YODER [address] [place], [address], [facility] [place], [facility] 4 09:47:06 Acute otitis media 5361177 Active 2023 JANETTE YODER [address] [place], [address], [facility] [place], [facility] 4 16:21:41 Hyperthyr oidism 22336259 Active 2023 JANETTE YODER [address] [place] [address], [address], [facility] [place], [facility] 4 16:23:01 Dizziness 105864651 Active 2023 JANETTE YODER [address] [place] [address], [address], [facility] [place], [facility] 4 16:24:47 Acute otitis media 1218149 Active 2023 JANETTE YODER [address] [place] [address], [address], [facility] [place], [facility] 4 15:12:09 Acute urinary tract infection 461273005 Active 2024 Herminio Lo DO [address] [place] [address], [address], [facility] [place], [facility] 5 09:35:43 Asthma 422557207 Active 2017 Not Available [facility] 3 15:48:14 Hypothyro idism 83780315 Active 2017 Not Available [facility] 3 15:48:15 Fibromyal maggie 874260653 Active 2017 Not Available [facility] 3 15:48:14 Migraine 94255575 Active 2017 Not Available [facility] 3 15:48:14 Impaired fasting glycemia 217988191 Active 2017 Not Available [facility] 3 15:48:15 Angioedem a 06460704 Active 2017 Not Available [facility] 3 15:48:15 Eczema 98296513 Active 2017 Not Available [facility] 3 15:48:15 Mixed hyperlipi demia 221685901 Active 2017 Not Available [facility] 3 15:48:14 Anxiety 93755354 Active 2017 Not Available [facility] 3 15:48:15 Problem Notes None recorded. Procedures Surgical History Date Name Laterality Status Provider Name and Address Organization Details Recorded Time 12/11/19 24 Cerumen Removal completed JANETTE YODER [address] [place] [address], [address], [facility] [place] 12/11/2023 15:17:59 05/27/19 24 Colonoscopy completed Herminio Lo DO [address] [place] [address], [address], [facility] [place], [facility] 05/27/2023 16:07:28 04/14/19 19 Most Recent Mammogram completed Gema Sotelo [facility] 10/20/2018 16:15:30 04/09/19 19 Colonoscopy completed Ana Queen [facility] 04/09/2018 09:59:35 Imaging Results Imaging Date Name Status LastModified by Organization Details LastModified Time 03/21/2023 XR, wrist, 3 or more view completed [address], [address], 03/25/2023 15:54:38 03/21/2023 XR, wrist, 3 or more view completed [address], [address], 03/25/2023 15:54:38 03/21/2023 XR, shoulder, 2 or more view completed [address], [address], 03/25/2023 15:54:39 06/05/2023 US, kidney completed [email or web address] [facility] [address] [facility], [place], [address], 06/05/2023 16:03:12 07/17/2023 CT, chest, w/o contrast completed [email or web address] [facility] (Medical Records) [address] [place], [address], 07/19/2023 08:35:01 10/07/2023 MAMMO, screening, digital, bilateral completed [email or web address] [facility] [address] [place], [address], 10/08/2023 08:00:38 01/08/2024 CT, abdomen, w/wo contrast completed [facility] (Medical Records) [address] [place], [address], 01/08/2024 14:22:25 03/11/2024 US, retroperitoneum completed [email or web address] [facility] (Medical Records) [address] [place], [address], 03/13/2024 08:25:53 04/07/2024 fluoroscopy (PROC) completed [facility] (Medical Records) [address] [place], [address], 04/20/2024 09:10:32 04/20/2024 XR, abdomen completed [facility] (Medical Records) [address] [place], [address], 04/22/2024 16:02:19 Procedure Notes None recorded. Medical Equipment None Reported. Allergies Allergen ID Allergen Name Allergen Category Reaction Reaction Severity Criticality Documentation Date Start Date Code Code System Note Provider Name and Address Organization Details Recorded Time 1892 Product containin g penicilli n and antibioti c (product) medicatio n Not available Not available Not available 10/21/2017 55438 05 [facility] Gema aguilar [place] - [facility] 8 16:05:19 1893 Substance with sulfonami de structure and antibacte rial mechanism of action (substanc e) medicatio n Not available Not available Not available 10/21/2017 32126 8003 [facility] 16:05:25 5814 lactose food,medi cation diarrhea severe Not available 10/02/2021 6211 RxNorm bleed ing recta lly Gladys aguilar [facility] 2 09:05:44 6992 Buspar medicatio n dizziness moderate Not available 10/03/2022 00144 0 RxNorm JANETTE YODER [address] [place], [address], [facility] [place] 3 09:05:58 Medications Name Sig Start Date [...] e 50 mcg/actua tion nasal spray,kaur pension [place] 1 spray every day by intranas al [...] Updated DateTime 3 160.02 cm 36.8 kg/m2 21214.2 1 g 76 /min 98 % 98 % 120 mm[Hg] 82 mm[Hg] Oma Sarmiento [facility] 3 16:05:23 Date Recorded Body height Body mass index (BMI) Body weight Heart rate Oxygen saturation Oxygen saturation in Arterial blood by Pulse oximetry Systolic blood pressure Diastolic blood pressure Provider Name and Address Organization Details Last Updated DateTime 4 160.02 cm 36.8 kg/m2 98589.2 1 g 78 /min 95 % 95 % 130 mm[Hg] 80 mm[Hg] Lisa [facility] 4 15:30:45 Date Recorded Body height Provider Name an d Address Organization Details Last Updated DateTime 12/11/2023 160.02 cm Radha Goodman [facility] 12/11/2023 14:32:14 Date Recorded Heart rate Oxygen saturation Oxygen saturation in Arterial blood by Pulse oximetry Systolic blood pressure Diastolic blood pressure Provider Name and Address Organization Details Last Updated DateTime 4 75 /min 95 % 95 % 120 mm[Hg] 68 mm[Hg] Lisa Conley [facility] 4 14:47:31 Date Recorded Body height Body mass index (BMI) Body weight Systolic blood pressure Diastolic blood pressure Provider Name and Address Organization Details Last Updated DateTime 04/15/2024 160.02 cm 35.4 kg/m2 67348.47 g 120 mm[Hg] 80 mm[Hg] Lisa Yeh [facility] 09:16:24 Social History Question Answer Notes LastModified by Organizat ion Details LastModified Time Tobacco Smoking Status Former Smoker Not Available [facility] 02/09/2020 03:36:23 What Is Your [...] Of Your Most Recent Tobacco Screening? 04/15/2024 [email or web address] Information not available 04/15/2024 How Many Children [...] virus, quadrivalent, preservative 1 completed JANETTE YODER [address] [place] [address], [address], [facility] [place] 05/17/2023 09:14:29 COVID-19, mRNA, LNP-S, PF, 30 mcg/0.3 mL dose 1 completed JANETTE YODER [address] [place] [address], [address], [facility] [place] 05/17/2023 09:14:29 Influenza, split virus, quadrivalent, preservative 8 completed JANETTE YODER [address] [place] [address], [address], [facility] [place] 05/17/2023 09:14:29 Influenza, split virus, trivalent, preservative 9 completed Not Available [facility] 06/17/2020 17:46:43 Influenza, split virus, quadrivalent, preservative 0 completed JANETTE YODER [address] [place] [address], [address], [facility] [place] 05/17/2023 09:14:29 COVID-19, mRNA, LNP-S, PF, 30 mcg/0.3 mL dose 0 completed JANETTE YODER [address] [place] [address], [address], [facility] [place] 05/17/2023 09:14:29 COVID-19, mRNA, LNP-S, PF, 30 mcg/0.3 mL dose 1 completed JANETTE YODER [address] [place], [address], [facility] [place], [facility] 05/17/2023 09:14:29 zoster recombinant 1 completed JANETTE YODER [address] [place], [address], [facility] [place] 05/17/2023 09:14:29 Past Encounters Encounter ID Performer Location Encounter Start Date Encounter Closed Date Diagnosis/Indication Diagnosis SNOMED-CT Code Diagnosis ICD10 Code Diagnosis Note [id number] July [facility] [address] [place] [address],[place] [address] 10/22/2017 08:55:47 10/22/2017 09:52:36 Asthma 906570528 J45.909 well controlled Impaired f asting glycemia 630260659 R73.01 stable diet reinforced Hypothyroidism 36361727 E03.9 needs to be rechecked Migraine 96472196 G43.90 9 on rizatripta n if needed Mixed hyperlipidemia 267 084407 E78.2 improved on increased dose of pravastati n will keep dose the same diet and exercise reinforced to reach goal range Anxiety 34780422 F41.9 well controlled rare use of alprazolam Chronic tremor 281950937 R25.1 will check thyroid bp normal fbs reassuring if thyroid normal will refer to neuro Arthralgia of the ankle and/or foot 407597136 M25.579 reassuring exam recommendd conservati ve management will do xr if pain persists [id number] July [facility] [address] [facility],[place] [address] 04/23/2018 08:46:59 04/23/2018 09:23:20 Anxiety 96446394 F41.9 well controlled on sertraline 50 mg rare use of alprazolam Mixed hyperlipidemia 267 044759 E78.2 has been inconsiste nt with dosing levels are much the same with slight worsening of HDL/LDL ratios diet and exercise reinforced to reach goal range Asthma 127655426 J45.90 9 well controlled Impaired f asting glycemia 352525709 R73.01 stable diet reinforced Hypothyroidism 02297108 E03.9 normal 04/2018 same dose of 125 Active or passive immunization 957049038 Z23 Body mass index 30+ - obesity 723090048 Z68.35 healthy diet and exercise Migraine 29305352 G43.90 9 on rizatripta n if needed Vitamin D deficiency 347 04206 E55.9 [id number] July [facility] [address] [facility],[place] [address] 10/21/2018 13:20:55 10/21/2018 16:04:51 Adult health examination 932747467 Z00.00 Active or passive immunization 217144998 Z23 Anxiety 71869190 F41.9 well controlled on sertraline 50 mg rare use of alprazolam Mixed hyperlipidemia 267 410268 E78.2 well controlled LDL improved compared to previous Asthma 593347002 J45.90 9 well controlled no issues in quite some time Impaired f asting glycemia 818641479 R73.01 stable diet reinforced Hypothyroidism 70960671 E03.9 normal 10/2018 same dose of 125 Seasonal a llergic rhinitis 965742245 J30.2 try xyzal Eczema 33034128 L30.9 Skin lesion 65526855 L98 .9 [id number] July [facility] [address] [place] [address] 05/06/2019 13:20:00 05/06/2019 14:00:04 Asthma 927501793 J45.909 well controlled no issues in quite some time Anxiety 71415264 F41.9 rare, doesn't even use alprazolam Mixed hyperlipidemia 267 777526 E78.2 well controlled LDL improved compared to previous Impaired f asting glycemia 419607360 R73.01 stable diet reinforced Hypothyroidism 31512410 E03.9 normal 10/2018 same dose of 125 Seasonal a llergic rhinitis 741637316 J30.2 using xyzal/flon ase as needed, basically all year except winter Eczema 10424342 L30.9 not bothersome Allergy to penicillin 91 134866 Z88.[address] gaviria for allergy testing for this and sulfa [id number] [facility] [address] [facility] [place], [place] [address] 03/28/2020 09:40:30 03/28/2020 11:18:40 Hypothyroidism 26103976 E03.9 will fu with lab work when it comes in will send in refill Eczema 50137136 L30.9 will trial increased strength cream and see if it works better [id number] JANETTE YODER [facility] [address] [facility] [place], [place] [address] 09/28/2020 08:55:13 09/28/2020 09:30:16 Active or passive immunization 340936233 Z23 advised Adult heal th examination 453705607 Z00.00 BP excellent Easy bruising 174909770 R58 will do work up for easy bruising and recheck her TSH which is due Menopausal flushing 1983 59455 N95.1 will trial paxilmothe r has ovarian cancer, cannot use HRT [id number] JANETTE YODER [facility] [address] [facility], [place] [address] 10/02/2021 08:59:55 10/02/2021 14:01:44 Active or passive immunization 339993165 Z23 advised Adult heal th examination 123527735 Z00.00 BP excellent today [id number] JANETTE YODER [facility] [address] [facility], [place] [address] 10/03/2022 08:52:12 10/03/2022 09:21:28 Active or passive immunization 101874033 Z23 advised Adult heal th examination 097818268 Z00.00 BP excellent today Anxiety 96267959 F41.1 increased dose [id number] JANETTE YODER [facility] [address] [facility] [address], [place] [address] 03/19/2023 15:55:26 03/20/2023 08:31:40 Pain of right shoulder joint 8710654362 1251740 M25.511 will need MRI Bilateral wrist pain 556 0220088 0159119 M25.531 will prob need hand surgeon referralwo uld like assessment of wrist joints as well Asthma 152432998 J45.21 will refill [id number] JANETTE YODER [facility] [address] [facility] [address],[place] [facility] [address] 05/17/2023 09:14:09 05/20/2023 08:42:25 Kidney stone 11098978 N20.0 5 mm right ureteral stoneneeds new urologist who takes her insurancew ill f/u with US kidney since she had to cancel her original since Dr. Mcgee ordered itwill fax results to urology [id number] JANETTE YODER [facility] [address] [facility] [address], [place] [facility] [address] 11/15/2023 15:12:39 11/18/2023 08:14:00 Acute otitis media 6453050 H65.03 start ear drops Hyperthyroidism 60442118 E05.90 set up with lab work Adult heal th examination 632300232 Z00.00 BP excellent today Dizziness 987568552 R42 will start on meclizine Impaired f asting glycemia 498259350 R73.01 agreed to set up standing orders for patient Eczema 21921498 L30.9 will trial increased strength cream and see if it works better [id number] JANETTE YODER [facility] [address] [facility] [address],[place] [address] 12/11/2023 14:23:26 12/11/2023 16:11:32 Acute otitis media 6134215 H65.03 will set up with prednisone and cipro for the patient Hypothyroidism 19272062 E03.8 will fu with lab work when it comes in will send in refill [id number] Herminio oL DO [facility] [address] [facility] [place] [facility] [address] 04/15/2024 09:08:22 04/15/2024 09:39:50 Kidney stone 51068008 N20.0 per urology will be getting litho in may Acute urin ashley tract infection 392794731 N39.0 Hypothyroidism 02443802 E03.8 will adjust thyroid dose by taking [...] Linder Member ID Guarantor Name 03/19/2023 1 [employer] (HMO) Jaja Lobudek [id number] Jaja Lobudek 05/17/2023 1 [employer] (HMO) Jaja Lobudek [id number] Jaja Lobudek 11/15/2023 1 [employer] - [employer]CS (PPO) [id number] Jaja Bhatti Lobudek [id number] Jaja Lobudek 12/11/2023 1 [employer] (PPO) [id number] Jaja Bhatti Lobudek [id number] Jaja Lobudek 04/15/2024 1 [employer] (PPO) [id number] Jaja Bhatti Lobudek [id number] Jaja Lobudek Notes Date Note Type Note Provider [...] bicep tendon tenderness and palpation JANETTE YODER [address] [place] [address], [address], [facility] [place] 03/19/2023 16:23:51 05/17/19 24 text/htm [...] the interim between switching urologists JANETTE YODER [address] [place] [address], [address], [facility] [place] 05/17/2023 09:55:27 11/15/19 24 text/htm [...] of hearing Vision:no vision problems JANETTE YODER [address] [place] [address], [address], [facility] [place] 11/15/2023 16:32:31 12/11/19 24 text/htm l Ear Pain Brief HPIReported bypatient.Location:right Onset/Timing:recent ear infections; recurrent episode; started 4weeks ago; getting worse Duration:occurs daily; constant pain Quality:throbbing pain;aching pain Severity:no fever; able to perform daily activities; no interference with sleep; current pain /10 Context:no recent URI; no recent trauma; no [...] pain; no jaw pain JANETTE YODER [address] [place], [id number], [facility], [place], operated by [facility] 12/11/2023 15:23:44 04/15/19 25 text/htm l here for swathi lobato her surgery fr kidney stonedid well but stone was impacted rleates that she has had significant increase in frequency of urination also has been shaky and jittery since last synthroid adjust Herminio Lo DO [address] [facility], [place], [place], [id number], [facility], [place], operated by [facility] 04/15/2024 09:39:03 OBGyn Episode No OBEpisode recorded.
--- NOTE | 2024-05-12 12:45 | MHC.SHP ---
Pre-Procedural Eval Section A - 24 Hr Update-Section A only Date of Service: 05/12/24 The patient is an INPATIENT: No The patient has been examined within 24 hours of the surgical procedure. The History & Physical has been completed within 30 days and I have reviewed it.: Yes Section B - Complete if H&P > 30 days Chief Complaint: Calculus of ureter Allergies: Allergies Allergy/AdvReac Type Severity Reaction Status Date / Time Penicillins Allergy Mild Anaphylaxis Verified 05/12/24 11:07 Sulfa (Sulfonamide Allergy Rash Verified 05/12/24 11:07 Antibiotics) Plan Diagnosis/Plan: Unchanged I have reviewed the history and physical and performed a pertinent physical examination on my patient. No changes have occurred unless specified. Plan for Cystoscopy, right ureteroscopy, possible laser lithotripsy, ureteral stent exchange. Risks discussed included but not limited to, possible need to repeat procedure if stone is not completely fragmented, Irritative voiding symptoms, bladder spasms, urgency, blood in urine. Time Spent With Patient Time: Total time managing care of this patient today ____ minutes.
[2024-05-12 14:32] VITALS: BP 140/73; PULSE 96; RESP 15; TEMP 36.6; O2SAT 96
[2024-05-12 14:35] VITALS: BP 124/58; PULSE 89; RESP 15; O2SAT 96
[2024-05-12 14:40] VITALS: BP 138/83; PULSE 91; RESP 15; O2SAT 97
[2024-05-12 14:45] VITALS: BP 149/74; PULSE 84; RESP 15; O2SAT 97
[2024-05-12] MEDS: Phenazopyridine HCL 200 MG TABLET PO (14:54)
[2024-05-12 14:59] VITALS: BP 128/82; PULSE 86; RESP 16; TEMP 36.6; O2SAT 96
--- NOTE | 2024-05-12 15:30 | W.PM.OPN ---
Operative Note Operative Note Date of Service: 05/12/24 Narrative: PreOperative Diagnosis:?? right ureteral stone, status post right ureteral stent Post Operative Diagnosis:?? right ureteral stone, status post right ureteral stent Procedure: Cystoscopy, right ureteroscopy stone extraction stent exchange, size 6 Greenlandic by 24 cm Surgeon:?Dr Amber Blanco Anesthesia:? General Procedure: After informed consent was verified the patient was brought to the operating placed on the OR table in supine position.? General Anesthesia was administered per protocol.? The patient was placed in lithotomy position, prepped and draped in the usual sterile fashion.? Safety pause time-out and side of surgery confirmed.? Antibiotics confirmed. A 22 Greenlandic cystoscope was inserted transurethrally, The bladder was visualized.? Both ureteric orifices were in normal position. The right ureteral stent was curled in the bladder. The distal end of the ureteral stent was grasped with the flexible grasping forceps. The stent was pulled retrograde through the urethra. A guidewire was passed through the stent. The cystoscope was removed, leaving the guidewire in place. The guidewire was used as the safety and was attached to the draping. The semi rigid ureteroscope was passed transurethrally to the proximal ureter. There was mucosa inflammatory changes noted proximally where the stone had been, the stone was not visualized. The semi-rigid ureteroscope was removed. The disposible flexible ureteroscope was passed into the right kidney, the renal calyces were evaluated there was a small stone visualized which was basketed and removed and sent for analysis. The stone appeared smaller than expected as reported on the CTAP. Further evaluation of the renal calyces, no other calcifications were noted. After removing the flexible ureteroscope, the cystoscope was passed over the safety guidewire. A? 6 Greenlandic by 24 cm stent was placed into the ureter and renal pelvis under a combination of fluoroscopy and direct visualization. The bladder was emptied.? The rigid cystoscope was removed. ? The patient tolerated the procedure well and was brought to the recovery room in stable condition. Complications: None Drains: Ureteral stent as dictated above
[2024-05-20 03:04] LABS: Stone Source STONE
== END 2024-05-12 15:46 | disposition home or self-care (01) ==
PROVIDERS: PCP Internal Medicine; Visit Provider Urology
PROC: (CPT 52352; principal; 2024-05-12 12:50)
DX: N20.0 Calculus of kidney (principal); N13.30 Unspecified hydronephrosis; E78.2 Mixed hyperlipidemia; E03.9 Hypothyroidism, unspecified; M79.7 Fibromyalgia; R73.01 Impaired fasting glucose; F41.9 Anxiety disorder, unspecified; J45.909 Unspecified asthma, uncomplicated; Z79.51 Long term (current) use of inhaled steroids; Z79.899 Other long term (current) drug therapy; Z88.0 Allergy status to penicillin; Z88.2 Allergy status to sulfonamides; Z87.891 Personal history of nicotine dependence
CPT/HCPCS: 52352; 52332; 82365; 88300; C1758; C1769; C2617; J0131; J0744; J1100; J2003; J2250; J2405; J2704; J3010; Q9967

== ENCOUNTER → 2024-05-12 10:46 | Outpatient (BNV) | payer OTHER, SELFPAY | PROVIDERS: PCP Internal Medicine; Visit Provider Urology | DX: N20.1 Calculus of ureter (principal) | CPT/HCPCS: 52356; 74420 ==

== ENCOUNTER 2024-05-29 15:14 | Outpatient (AMB) | payer OTHER, SELFPAY ==
--- OUTSIDE RECORDS SUMMARY | 2024-05-29 15:17 | XMS_ITS | Data Portability ---
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) MDM MODERATE MUST MEET 2 OUT OF [...] Not available Not available Not available Lab TSH + free T4, serum 2023 0904/2 024 ATHENADREX [facility], [facility], [place], [address], 12/11/2023 15:18:48 T3, free, serum or plasma 2023 024 COUNT INCLUDES THE [facility], [place], [address], 12/11/2023 15:18:48 CMP, serum or plasma 2023 [facility], [address] [place] [address], [address], 11/15/2023 16:32:39 hemoglobi n A1c, QN, blood 2023 [facility], [address] [place] [address], [address], 11/15/2023 16:32:39 lipid panel, serum 2023 024 [facility], [address] [place] [address], [address], 11/15/2023 16:32:39 CBC w/ auto diff 2023 024 [facility], [address] [place] [address], [address], 11/15/2023 16:32:39 T3, free, serum or plasma 2023 024 [facility], [address] [place] [address], [address], 11/15/2023 16:25:01 tsi (thyroid- stimulati ng immunoglo bulin), serum 2023 024 [facility], [address] [place] [address], [address], 11/15/2023 16:25:01 thyroid peroxidas e (tpo) Ab, serum 2023 024 [facility], [address] [place] [address], [address], 11/15/2023 16:25:01 C reactive protein, QN, serum or plasma 2023 024 [facility], [address] [place] [address], [place], [address], 11/15/2023 16:25:00 ESR (erythroc yte sedimenta tion rate), blood 2023 024 [facility], [address] [place] [address], [place], [address], 11/15/2023 16:25:01 TSH + free T4, serum 2023 024 [facility], [address] [place] [address], [address], 11/15/2023 16:25:01 TSH + free T4, serum 2023 024 [facility], [address] [place] [address], [address], 11/15/2023 16:39:56 Referral urologist referral - recent ER trip for R kidney stone 2023 024 [email or web address] Ascencion Sanches MD, [address] [place] [address] Stas Gusman, [place], [address], 05/20/2023 08:42:25 Procedures None recorded. Surgeries None recorded. Imaging US, kidney 2023 024 [email or web address] [facility], [address] [place], [address], 05/22/2023 10:18:20 XR, wrist, 3 or more view 2022 023 [email or web address] Not available 03/26/2023 08:28:25 XR, wrist, 3 or more view 2022 023 ANIL Not available 03/25/2023 15:37:41 XR, shoulder, 2 or more view 2022 023 ANIL Not available 03/25/2023 15:39:23 Medication Orders nitrofura ntoin monohydra te/macroc rystals 100 mg capsule 2024 025 [facility], [address] [place], [address], 04/15/2024 09:36:54 prednison e 10 mg tablet 2023 025 [facility], [address] [place], [address], 04/15/2024 09:14:48 ciproflox acin 500 mg tablet 2023 025 [facility], [address] [place], [address], 04/15/2024 09:14:08 neomycin- polymyxin -hydrocor t 3.5 mg-10,000 unit/mL-1 % ear drops,kaur p 2023 024 [facility], [address] [place], [address], 11/15/2023 16:22:17 meclizine 25 mg tablet 2023 024 [facility], [address] [place], [address], 11/15/2023 16:25:26 triamcino lone acetonide 0.1 % topical cream 2023 024 [facility], [address] [place], [address], 11/15/2023 16:31:44 Breo Ellipta 200 mcg-25 mcg/dose powder for inhalatio n 2022 023 [email or web address] [facility] [address] [place], [address], 03/20/2023 08:57:53 Patient TargetsNo targets recorded. Patient Instructions Encounter Date Encounter Id Patient Instructions Last Modified By Organization Details Last Modified Time 04/15/2024 [id number] hypothyroidism: care instructions Not available 04/15/2024 09:38:10 [...] more view No observ ation record ed. [address], [address], 03/25/2023 15:54:38 03/25/20 23 03/21/2023 XR, wrist , 3 or more view No observ ation record ed. [address], [address], 03/25/2023 15:54:38 03/25/20 23 03/21/2023 XR, shoul brooke, 2 or more view No observ ation record ed. [address], [address], 03/25/2023 15:54:39 06/05/19 24 06/05/2023 US, kidne y No observ ation record ed. [email or web address] [facility] [address] [facility], [place], [address], 06/05/2023 16:03:12 07/18/19 24 07/17/2023 CT, chest , w/o contr ast No observ ation record ed. [email or web address] [place] [address] (Medical Records) [address] [place], [address], 07/19/2023 08:35:01 10/08/19 24 10/07/2023 MAMMO , scree tanesha, digit al, bilat eral No observ ation record ed. [email or web address] [facility] [address], [place], [address], 10/08/2023 08:00:38 01/08/20 24 01/08/2024 CT, abdom en, w/wo contr ast No observ ation record ed. [email or web address] [facility] (Medical Records) [address] [place], [address], 01/08/2024 14:22:25 03/12/20 24 03/11/2024 US, retro perit oneum No observ ation record ed. [email or web address] [facility] (Medical Records) [address] [place], [address], 03/13/2024 08:25:53 04/20/19 25 04/07/2024 fluor oscop y (PROC ) No observ ation record ed. [facility] (Medical Records) [address] [place], [address], 04/20/2024 09:10:32 04/22/19 25 04/20/2024 XR, abdom en No observ ation record ed. [facility] (Medical Records) [address] [place], [address], 04/22/2024 16:02:19 05/12/19 25 05/12/2024 imagi ng/di agnos tic resul t No observ ation record ed. [email or web address] [facility] (Medical Records) [address] [place], [address], 05/12/2024 15:33:59 Result Notes None recorded. Problems Name Problem SNOMED Code Status Onset Date Resolution Date Notes Provider Name and Address Organization Details Recorded Time Herpes simplex 88462530 Active 2017 Not Available [facility] 15:48:15 Generaliz ed anxiety disorder 49716766 Active 2021 Not Available [facility] 3 15:48:14 Pain of right shoulder joint 830749453447 13471 Active 2022 JANETTE YODER [address] [place] [address], [address], [facility] 3 16:17:02 Bilateral wrist pain 179664593010 97466 Active 2022 JANETTE YODER [address] [place] [address], [address], [facility] 3 16:17:21 Kidney stone 72430698 Active 2023 JANETTE YODER [address] [place] [address], [address], [facility] 4 09:47:06 Acute otitis media 1482917 Active 2023 JANETTE YODER [address] [place] [address], [address], [facility] 4 16:21:41 Hyperthyr oidism 27656735 Active 2023 JANETTE YODER [address] [place] [address], [address], [facility] 4 16:23:01 Dizziness 024083821 Active 2023 JANETTE YODER [address] [place] [address], [address], [facility] 4 16:24:47 Acute otitis media 9229178 Active 2023 JANETTE YODER [address] [place] [address], [address], [facility] 4 15:12:09 Acute urinary tract infection 999469098 Active 2024 Herminio Lo DO [address] [place] [address], [address], [facility] 5 09:35:43 Asthma 378522946 Active 2017 Not Available [facility] 3 15:48:14 Hypothyro idism 97920074 Active 2017 Not Available [facility] 3 15:48:15 Fibromyal maggie 421418762 Active 2017 Not Available [facility] 3 15:48:14 Migraine 91125787 Active 2017 Not Available [facility] 3 15:48:14 Impaired fasting glycemia 360813399 Active 2017 Not Available [facility] 3 15:48:15 Angioedem a 94760520 Active 2017 Not Available [facility] 3 15:48:15 Eczema 76236677 Active 2017 Not Available [facility] 3 15:48:15 Mixed hyperlipi demia 916991883 Active 2017 Not Available [facility] 3 15:48:14 Anxiety 58230217 Active 2017 Not Available [facility] 3 15:48:15 Problem Notes None recorded. Procedures Surgical History Date Name Laterality Status Provider Name and Address Organization Details Recorded Time 12/11/19 24 Cerumen Removal completed JANETTE YODER [address] [place] [address], [address], [facility] 12/11/2023 15:17:59 05/27/19 24 Colonoscopy completed Herminio Lo DO [address] [place] [address], [address], [facility] 05/27/2023 16:07:28 04/14/19 19 Most Recent Mammogram completed Gema Sotelo [facility] 10/20/2018 16:15:30 04/09/19 19 Colonoscopy completed Ana Queen [facility] 04/09/2018 09:59:35 Imaging Results Imaging Date Name Status LastModified by Organization Details LastModified Time 03/21/2023 XR, wrist, 3 or more view completed [address], [address], 03/25/2023 15:54:38 03/21/2023 XR, wrist, 3 or more view completed [email or web address] [address], [address], 03/25/2023 15:54:38 03/21/2023 XR, shoulder, 2 or more view [facility] [address], [address], 03/25/2023 15:54:39 06/05/2023 US, kidney completed [email or web address] [place] [address] [address] [place], [address], 06/05/2023 16:03:12 07/17/2023 CT, chest, w/o contrast completed [email or web address] (Medical Records) [address] [place], [address], 07/19/2023 08:35:01 10/07/2023 MAMMO, screening, digital, bilateral completed [address], [address], 10/08/2023 08:00:38 01/08/2024 CT, abdomen, w/wo contrast completed [facility] (Medical Records) [address] [place], [address], 01/08/2024 14:22:25 03/11/2024 US, retroperitoneum completed [address] (Medical Records) [address] [place], [address], 03/13/2024 08:25:53 04/07/2024 fluoroscopy (PROC) completed [facility] (Medical Records) [address] [place], [address], 04/20/2024 09:10:32 04/20/2024 XR, abdomen completed [facility] (Medical Records) [address] [place], [address], 04/22/2024 16:02:19 05/12/2024 imaging/diagnostic result completed [email or web address] [place] [address] (Medical Records) [address] [place], [address], 05/12/2024 15:33:59 Procedure Notes None recorded. Medical Equipment None Reported. Allergies Allergen ID Allergen Name Allergen Category Reaction Reaction Severity Criticality Documentation Date Start Date Code Code System Note Provider Name and Address Organization Details Recorded Time 1891 Product containin g penicilli n (product) medicatio n Not available Not available Not available 10/21/2017 03594 8001 [facility] Gema aguilar [facility] 8 16:05:19 1893 Substance with sulfonami de structure and antibacte rial mechanism of action (substanc e) medicatio n Not available Not available Not available 10/21/2017 03346 8003 [facility] 8 16:05:25 5814 lactose food,medi cation diarrhea severe Not available 10/02/2021 6211 RxNorm bleed ing recta lly Gladys [facility] 2 09:05:44 6992 Buspar medicatio n dizziness moderate Not available 10/03/2022 33933 0 RxNorm JANETTE YODER [address] [place], [address], [facility] 3 09:05:58 Medications Name Sig [...] e 50 mcg/actua tion nasal spray,kaur pension [place] 1 spray every day by intranas al [...] Updated DateTime 3 160.02 cm 36.8 kg/m2 13290.2 1 g 76 /min 98 % 98 % 120 mm[Hg] 82 mm[Hg] [facility]iento [facility] 3 16:05:23 Date Recorded Body height Body mass index (BMI) Body weight Heart rate Oxygen saturation Oxygen saturation in Arterial blood by Pulse oximetry Systolic blood pressure Diastolic blood pressure Provider Name and Address Organization Details Last Updated DateTime 4 160.02 cm 36.8 kg/m2 76607.2 1 g 78 /min 95 % 95 % 130 mm[Hg] 80 mm[Hg] Lisa Conley [facility] 4 15:30:45 Date Recorded Body height Provider Name an d Address Organization Details Last Updated DateTime 12/11/2023 160.02 cm Radha Barahonaishaan [facility] 12/11/2023 14:32:14 Date Recorded Heart rate Oxygen saturation Oxygen saturation in Arterial blood by Pulse oximetry Systolic blood pressure Diastolic blood pressure Provider Name and Address Organization Details Last Updated DateTime 4 75 /min 95 % 95 % 120 mm[Hg] 68 mm[Hg] Lisadalia Parhamjesika [facility] 4 14:47:31 Date Recorded Body height Body mass index (BMI) Body weight Systolic blood pressure Diastolic blood pressure Provider Name and Address Organization Details Last Updated DateTime 04/15/2024 160.02 cm 35.4 kg/m2 37559.47 g 120 mm[Hg] 80 mm[Hg] Lisa [facility] 5 09:16:24 Social History Question Answer Notes LastModified by Organizat ion Details LastModified Time Tobacco Smoking Status Former Smoker Not Available [facility] 02/09/2020 03:36:23 What Is Your Level Of [...] virus, quadrivalent, preservative 1 completed JANETTE YODER [address] [place] [address], [address], [facility] 05/17/2023 09:14:29 COVID-19, mRNA, LNP-S, PF, 30 mcg/0.3 mL dose 1 completed JANETTE YODER [address] [place] [address], [address], [facility] 05/17/2023 09:14:29 Influenza, split virus, quadrivalent, preservative 8 completed JANETTE YODER [address] [place] [address], [address], [facility] 05/17/2023 09:14:29 Influenza, split virus, trivalent, preservative 9 completed Not Available [facility] 06/17/2020 17:46:43 Influenza, split virus, quadrivalent, preservative 0 completed JANETTE YODER [address] [place], [address], [facility] 05/17/2023 09:14:29 COVID-19, mRNA, LNP-S, PF, 30 mcg/0.3 mL dose 0 completed JANETTE YODER [address] [place] [address], [address], [facility] 05/17/2023 09:14:29 COVID-19, mRNA, LNP-S, PF, 30 mcg/0.3 mL dose 1 completed JANETTE YODER [address] [place] [address], [address], [facility] 05/17/2023 09:14:29 zoster recombinant 1 completed JANETTE YODER [address] [place] [address], [address], [facility] 05/17/2023 09:14:29 Past Encounters Encounter ID Performer Location Encounter Start Date Encounter Closed Date Diagnosis/Indication Diagnosis SNOMED-CT Code Diagnosis ICD10 Code Diagnosis Note [id number] July JAYE Milner [facility] [address] [place] [address],[place] [address] 10/22/2017 08:55:47 10/22/2017 09:52:36 Asthma 164028153 J45.909 well controlled Impaired f asting glycemia 842561281 R73.01 stable diet reinforced Hypothyroidism 76663901 E03.9 needs to be rechecked Migraine 85314674 G43.90 9 on rizatripta n if needed Mixed hyperlipidemia 267 733388 E78.2 improved on increased dose of pravastati n will keep dose the same diet and exercise reinforced to reach goal range Anxiety 47535205 F41.9 well controlled rare use of alprazolam Chronic tremor 031434753 R25.1 will check thyroid bp normal fbs reassuring if thyroid normal will refer to neuro Arthralgia of the ankle and/or foot 571056834 M25.579 reassuring exam recommendd conservati ve management will do xr if pain persists [id number] [facility] [place] [facility] [address] [facility] [address],[facility] [place] [address] 04/23/2018 08:46:59 04/23/2018 09:23:20 Anxiety 40094616 F41.9 well controlled on sertraline 50 mg rare use of alprazolam Mixed hyperlipidemia 267 367473 E78.2 has been inconsiste nt with dosing levels are much the same with slight worsening of HDL/LDL ratios diet and exercise reinforced to reach goal range Asthma 285996359 J45.90 9 well controlled Impaired f asting glycemia 022950050 R73.01 stable diet reinforced Hypothyroidism 07260343 E03.9 normal 04/2018 same dose of 125 Active or passive immunization 338031626 Z23 Body mass index 30+ - obesity 441733654 Z68.35 healthy diet and exercise Migraine 36164658 G43.90 9 on rizatripta n if needed Vitamin D deficiency 347 38880 E55.9 [id number] [facility] [place] [facility] [address] [facility], [place] [address] 10/21/2018 13:20:55 10/21/2018 16:04:51 Adult health examination 101183685 Z00.00 Active or passive immunization 496520083 Z23 Anxiety 08337086 F41.9 well controlled on sertraline 50 mg rare use of alprazolam Mixed hyperlipidemia 267 594382 E78.2 well controlled LDL improved compared to previous Asthma 859288009 J45.90 9 well controlled no issues in quite some time Impaired f asting glycemia 998948243 R73.01 stable diet reinforced Hypothyroidism 31533447 E03.9 normal 10/2018 same dose of 125 Seasonal a llergic rhinitis 361744080 J30.2 try xyzal Eczema 83740632 L30.9 Skin lesion 07295165 L98 .9 [id number] [facility] [place] [facility] [address] [facility] [address], [place] [address] 05/06/2019 13:20:00 05/06/2019 14:00:04 Asthma 463079854 J45.909 well controlled no issues in quite some time Anxiety 32281447 F41.9 rare, doesn't even use alprazolam Mixed hyperlipidemia 267 057020 E78.2 well controlled LDL improved compared to previous Impaired f asting glycemia 183454512 R73.01 stable diet reinforced Hypothyroidism 19406622 E03.9 normal 10/2018 same dose of 125 Seasonal a llergic rhinitis 275534590 J30.2 using xyzal/flon ase as needed, basically all year except winter Eczema 84685341 L30.9 not bothersome Allergy to penicillin 91 [address]1984 Z88.[address] gaviria for allergy testing for this and sulfa [id number] JANETTE YODER [facility] [address] [facility] [address],[place] [address] 03/28/2020 09:40:30 03/28/2020 11:18:40 Hypothyroidism 01789371 E03.9 will fu with lab work when it comes in will send in refill Eczema 05691394 L30.9 will trial increased strength cream and see if it works better [id number] JANETTE YODER [facility] [address] [facility] [address],[place] [address] 09/28/2020 08:55:13 09/28/2020 09:30:16 Active or passive immunization 061866404 Z23 advised Adult heal th examination 904295747 Z00.00 BP excellent Easy bruising 113768965 R58 will do work up for easy bruising and recheck her TSH which is due Menopausal flushing 1983 70503 N95.1 will trial paxilmothe r has ovarian cancer, cannot use HRT [id number] JANETTE YODER [facility] [address] [facility] [address],[place] [address] 10/02/2021 08:59:55 10/02/2021 14:01:44 Active or passive immunization 056037273 Z23 advised Adult heal th examination 150157592 Z00.00 BP excellent today [id number] JANETTE YODER [facility] [address] [facility] [address],[place] [address] 10/03/2022 08:52:12 10/03/2022 09:21:28 Active or passive immunization 366926658 Z23 advised Adult heal th examination 959418184 Z00.00 BP excellent today Anxiety 42943135 F41.1 increased dose [id number] JANETTE YODER [facility] [address] [facility] [address],[place] [facility] [place] [address] 03/19/2023 15:55:26 03/20/2023 08:31:40 Pain of right shoulder joint 8408623954 8612368 M25.511 will need MRI Bilateral wrist pain 942 3015503 7903340 M25.531 will prob need hand surgeon referralwo uld like assessment of wrist joints as well Asthma 270388692 J45.21 will refill [id number] JANETTE YODER [facility] [address] [facility], [place] [address] 05/17/2023 09:14:09 05/20/2023 08:42:25 Kidney stone 95349736 N20.0 5 mm right ureteral stoneneeds new urologist who takes her insurancew ill f/u with US kidney since she had to cancel her original since Dr. Mcgee ordered itwill fax results to urology [id number] JANETTE YODER [facility] [address] [facility] [address],[place] [address] 11/15/2023 15:12:39 11/18/2023 08:14:00 Acute otitis media 2499388 H65.03 start ear drops Hyperthyroidism 01890860 E05.90 set up with lab work Adult [place] examination 486663097 Z00.00 BP excellent today Dizziness 421411418 R42 will start on meclizine Impaired f asting glycemia 917559818 R73.01 agreed to set up standing orders for patient Eczema 47844640 L30.9 will trial increased strength cream and see if it works better [id number] JANETTE YODER [facility] [address] [facility] [address],[place] [address] 12/11/2023 14:23:26 12/11/2023 16:11:32 Acute otitis media 9813132 H65.03 will set up with prednisone and cipro for the patient Hypothyroidism 64398798 E03.8 will fu with lab work when it comes in will send in refill [id number] Herminio Lo DO [facility] [address] [facility],[place] [address] 04/15/2024 09:08:22 04/15/2024 09:39:50 Kidney stone 45326168 N20.0 per urology will be getting litho in may Acute urin ashley tract infection 696725850 N39.0 Hypothyroidism 26954927 E03.8 will adjust thyroid dose by taking [...] Linder Member ID Guarantor Name 03/19/2023 1 [facility] (HMO) Jaja Lobudek [id number] Jaja Lobudek 05/17/2023 1 [facility] (HMO) Jaja Lobudek [id number] Jaja Lobudek 11/15/2023 1 [employer] (PPO) [id number] Jaja G Lobudek [id number] Jaja Lobudek 12/11/2023 1 [employer] (PP[employer]) [id number] Jaja G Lobudek [id number] Jaja Lobudek 04/15/2024 1 [employer] (PP[employer]) [id number] Jaja G Lobudek [id number] Jaja Lobudek Notes Date Note Type Note [...] tendon tenderness and palpation JANETTE YODER [address] [facility], [place], [address], [facility] 03/19/2023 16:23:51 05/17/19 24 text/htm l ER f/u The patient is participating in this appointment via telemedicine communication with a phone call/video calling service ([employer])The patient consents to use of these platforms [...] the interim between switching urologists JANETTE YODER [address] [place] [address], [address], [facility] 05/17/2023 09:55:27 11/15/19 24 text/htm l Annual [...] hearing Vision:no vision problems JANETTE YODER [address] [place], [address], [facility] 11/15/2023 16:32:31 12/11/19 24 text/htm [...] dental pain; no jaw pain JANETTE YODER [address] [place] [address], [id number], [facility] 12/11/2023 15:23:44 04/15/19 25 text/htm l here for rechk soince her surgery fr kidney stonedid well but stone was impacted rleates that she has had significant increase in frequency of urination also has been shaky and jittery since last synthroid adjust Herminio Lo DO [address] [place], [id number], [facility] 04/15/2024 09:39:03 OBGyn Episode No OBEpisode recorded.
--- NOTE | 2024-05-29 16:12 | A.OFFVIS_ITS ---
Intake Visit Reasons: Cysto Special- follow up Intake Note: Patient is present for cysto stent removal Urology Meds: solifenacin, pyridium Antibiotic Allergies: PCN, Sulfa Blood Thinners: none URO G-HD Disposable Cystoscope LOT: [id number] EXP: 07/17/26 Home Economist Required: No Accompanied by: Self / Same As Patient Allergies Penicillins Allergy (Mild, Verified 05/29/24 16:15) Anaphylaxis Sulfa (Sulfonamide Antibiotics) Allergy (Verified 05/29/24 16:15) Rash HPI Comments Details: 05/29/24--is here for ureteral stent status post cystoscopy ureteroscopy stone extraction and stent exchange. Ureteral stent removed without difficulty. We will check a renal ultrasound in 4 weeks. The patient had a 24 hour urine done last year which was within normal limits other than volume at about 1.5 L. Patient encouraged to increase fluids and continue to add lemon to diet. 04/24/24--s/p right ureteroscopy, (proximal ureteral stone impacted) ureteral stent on 04/07/24. KUB 04/20/24- ureteral stone remains proximal, stent in good position. Discussed ureteroscopy laser lithotripsy, stent exchange. Risks discussed included but not limited to, possible need to repeat procedure if stone is not completely fragmented, Irritative voiding symptoms, bladder spasms, urgency, blood in urine. Pt states still has bladder spasms even while taking the vesicare 5mg daily. I will have her increase to bid. 03/18/24--LV 02/21/24--Serena has been asymptomatic. Persistent right hydronephosis on fu renal us 03/11/24. recommend cystoscopy ureteroscopy, stent. 02/21/2024--I have reviewed CT findings: 01/08/24 with the patient which noticed a ureteral stone. The patient states she has no kidney pain or urinary symptoms. I will check an ultrasound kidney and bladder to fu hydronephrosis and ureteral stone, no enhancing renal mass noted. CTAT w/wo IV contrast- 01/07/34--There is a 6 mm obstructing calculus in the mid right ureter with moderate right hydroureteronephrosis. no suspicious renal mass. 07/26/2023--Serena has a history of kidney stones. She was initially evaluated on 06/11/2023. I discussed metabolic workup and she completed 24 hour urine on 07/02/2023. Discussed 24 hour urine results: Total volume 1.37 L, Calcium 82 mg; Oxalate 22 mg, Sodium 126, Citrate 522 mg. Instructed on importance of fluid intake, discussed increasing fluid intake to [address] imaging without IV contrast completed on 07/17/2023 which noted a indeterminate renal mass. Plan repeat CT with and without IV contrast follow-up in 6 months. 07/17/2023-- CTAP: Right kidney revealed speckled calcifications in the lower pole questionably associated with mass. nonobstructing 0.6 cm stone lower pole. Left kidney is unremarkable. 06/11/23--Serena is a 58-year-old female here for new patient evaluation. She has a history of kidney stones for about 4-5 years. She states that her prior urologist no longer takes her insurance. The patient states that on 05/07/[address] scan due to right flank pain. She has a report on her phone that I have reviewed. (office will have report faxed to my attention) The report indicated mild right hydronephrosis with 5 mm distal ureteral stone and other nonobstructing right kidney stones. Left kidney within normal limits. The patient had follow-up imaging with an ultrasound. The patient states that she no longer has pain. She denies any irritative voiding symptoms. I reviewed renal ultrasound report dated 06/05/2023-- right hydronephrosis, moderate, minimal cortical scarring as seen on prior CT on 05/07/2023 for left kidney within normal limits. Discussed re-evaluation with CT abdomen and pelvis without IV contrast. Diet sheet provided and reviewed with information regarding recommendations to reduce kidney stone production. She states that she is on a high-protein diet for weight management. Discussed 24 hour urine collection to be obtained. Follow up in 6 weeks [facility] Medical History Hx of mammogram Mixed hyperlipidemia Angioedema Migraine Fibromyalgia Hypothyroid Asthma Anxiety Impaired fasting blood sugar Surgical History History of dental surgery Hx of colonoscopy Family History Father No problems noted. Mother No problems noted. Social History Are you a primary medical care administrator to a significant other at home: No Do you presently have visiting nurse or other home services: No Alcohol intake: current Alcohol intake frequency: holidays/special occasions only Patient Tobacco Use Status: Former Tobacco user Review of Systems Const All systems reviewed & are unremarkable except as noted in HPI and below Reports no additional complaints Eyes Reports no additional complaints ENT Reports no additional complaints Card Reports no additional complaints Resp Reports no additional complaints GI Reports no additional complaints Reports as per HPI Musc Reports no additional complaints Skin/Breast Reports system reviewed and no additional complaints, except as documented Neuro Reports no additional complaints Psych Reports no additional complaints Endo Reports no additional complaints James/Lymph Reports no additional complaints Aller/Immun Reports no additional complaints Office Procedures Cystoscopy Consent Discussed risk and benefit or proposed procedure with the patient. Information consent for procedure given to the patient. Discussed technical aspects, risks, benefits and alternatives in full. Addressed all of the patient's questions and concerns regarding the procedure. The patient demonstrated knowledge and understanding. They wish to proceed with this procedure. Preparation The patient was prepped in the usual manner. A mini lab operator was present and in the room. Genitalia was prepped with betadine solution in a sterile manner. Lidocaine Jelly 2% was placed into the urethra and 16Fr flexible Olympus cystoscope was inserted into the meatus after adequate lubrication. Procedure Time out per protocol performed. Bladder Inspection Cystoscopy findings: mild edema ureteral orifice which is expected, distal end of ureteral stent visualized. The grasping forceps were used and the stent was removed without difficulty. [id number] with stent removal DISPOSABLE SCOPE URO-G FLEXIBLE SCOPE Procedure code (CPT) selection complete Office Meds lidocaine HCl 2 % mucosal jelly in applicator Performing Provider: Amber Blanco MD Performing Location: [facility] Administered by: Allyson Campos RN on 05/29/24 16:21 Dose Route Admin Location Dispensed Lot Number Expiration Date ND Pupil Personnel Services Director 10 mL intra-urethral 10 mL naproxen 500 mg tablet Performing Provider: Amber Blanco MD Performing Location: [facility] Administered by: Allyson Campos RN on 05/29/24 16:21 Dose Route Admin Location Dispensed Lot Number Expiration Date NDC Pupil Personnel Services Director 500 mg PO 1 tab ciprofloxacin HCl 500 mg tablet Performing Provider: Amber Blanco MD Performing Location[facility] Administered by: Allyson Campos RN on 05/29/24 16:21 Dose Route Admin Location Dispensed Lot Number Expiration Date NDC Pupil Personnel Services Director 500 mg PO 1 tab Results AMB Urinalysis, Automated UA Leukoctes 0 Eric/uL Last Edit by Sommer Dubon MA on 05/29/24 16:20 UA Nitrite Negative Last Edit by Sommer Dubon MA on 05/29/24 16:20 UA Urobilinogen 0.2 mg/dL Last Edit by Sommer Dubon MA on 05/29/24 16:20 UA Protein 100 mg/dL Last Edit by Sommer Dubon MA on 05/29/24 16:20 UA pH 6.5 Last Edit by Sommer Dubon MA on 05/29/24 16:20 UA Blood 80 Greg/uL Last Edit by Sommer Dubon MA on 05/29/24 16:20 UA Specific [place] 1.020 Last Edit by Sommer Dubon MA on 05/29/24 16:20 UA Ketone Negative Last Edit by Sommer Dubon MA on 05/29/24 16:20 UA Bilirubin 0 mg/dL Last Edit by Sommer Dubon MA on 05/29/24 16:20 UA Glucose 0 mg/dL Last Edit by Sommer Dubon MA on 05/29/24 16:20 Results Reviewed Results Reviewed: Laboratory Last Values Urine pH (Auto) 6.5 05/29/24 16:19 Specific [place] (Auto) 1.020 05/29/24 16:19 Urine Protein (Auto) 100 mg/dL 05/29/24 16:19 Glucose (UA)(Auto) 0 mg/dL 05/29/24 16:19 Urine Ketones (Auto) Negative 05/29/24 16:19 Urine Blood (Auto) 80 Greg/uL 05/29/24 16:19 Urine Nitrite (Auto) Negative 05/29/24 16:19 Urine Bilirubin (Auto) 0 mg/dL 05/29/24 16:19 Urine Urobilinogen (Auto) 0.2 mg/dL 05/29/24 16:19 Leukocyte Esterase (Auto) 0 Eric/uL 05/29/24 16:19 Assessment & Plan Assessment & Plan (1) Renal calculi: Code(s): N20.0 - Calculus of kidney Category: Medical (2) Hydronephrosis, right: Code(s): N13.30 - Unspecified hydronephrosis Category: Medical (3) Ureteral stone: Code(s): N20.1 - Calculus of ureter Category: Medical Plan Will check a renal ultrasound in 4 weeks. The patient had a 24 hour urine done last year which was within normal limits other than volume at about 1.5 L. Patient encouraged to increase fluids and continue to add lemon to diet. Orders: Orders AMB Urinalysis Automated Today Z13.9 - Encounter for screening, unspecified AMB Cystoscopy Today N20.0 - Calculus of kidney Patient Instructions: The patient had an opportunity to ask questions regarding treatment plan. The patient expressed understanding and agreement with the above treatment plan. The patient is aware they should contact our office by phone for worsening of their current condition or the appearance of new symptoms. Compliance is encouraged with any medications and followup testing that is ordered. It is a privilege to be allowed the opportunity to participate in the urologic care of your patient. If you have any questions or concerns regarding treatment for the above conditions please do not hesitate to contact me. The office telephone contact is [phone]. This note is constructed in part using voice recognition software. While every effort has been made to ensure accuracy chief digital media officer errors may have been included. Yours sincerely, Amber Blanco MD Coding Level of Care Code Procedure Only Diagnoses Renal calculi N20.0 Hydronephrosis, right N13.30 Ureteral stone N20.1 CPT Codes Cystoscopy - CPT: 60069-[id number] with stent removal ([id number])
== END 2024-05-29 16:47 | disposition home or self-care (01) ==
PROVIDERS: PCP Internal Medicine; Visit Provider Urology
DX: N20.0 Calculus of kidney (principal); N13.30 Unspecified hydronephrosis; N20.1 Calculus of ureter; Z96.0 Presence of urogenital implants; Z13.9 Encounter for screening, unspecified
CPT/HCPCS: 52310

== ENCOUNTER → 2024-05-29 15:14 | Outpatient (BNVA) | payer OTHER, SELFPAY | PROVIDERS: PCP Internal Medicine; Visit Provider Urology | DX: Z48.816 Encounter for surgical aftercare following surgery on the genitourinary system (principal) | CPT/HCPCS: 52310; 81003 ==

== ENCOUNTER 2024-06-11 09:16 | Outpatient (REF) | payer OTHER, SELFPAY ==
--- NOTE | ~2024-06-11 | US_ITS ---
CLINICAL HISTORY: Z87.442 - Personal history of urinary calculi US RENAL Comparison: None Findings: Right kidney measures 9.4 cm in length. Normal cortical thickness and echogenicity. There is mild fullness of the renal pelvis with no nevaeh hydronephrosis. No shadowing calculus or cortical mass lesion. Left kidney measures 10.2 cm in length. Normal cortical thickness and echogenicity. No hydronephrosis, shadowing calculus or cortical mass lesion. IMPRESSION: Mild right renal pelviectasis otherwise unremarkable bilateral kidneys. This document has been electronically signed by: Layla Barajas DO on 06/13/2024 15:17:47
--- OUTSIDE RECORDS SUMMARY | 2024-06-11 10:19 | XMS_ITS | Data Portability ---
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) MDM MODERATE MUST MEET 2 OUT OF [...] free T4, serum 2023 0904/2 024 [facility], [facility], [place], [address], 12/11/2023 15:18:48 T3, free, serum or plasma 2023 024 [facility], [place], [address], 12/11/2023 15:18:48 CMP, serum or plasma 2023 [facility], [address] [place] [address], [address], 11/15/2023 16:32:39 hemoglobi n A1c, QN, blood 2023 [facility], [address] [place] [address], [address], 11/15/2023 16:32:39 lipid panel, serum 2023 024 [facility], [address] [place] [address], [address], 11/15/2023 16:32:39 CBC w/ auto diff 2023 024 [facility], [address] [place] [address], [address], 11/15/2023 16:32:39 T3, free, serum or plasma 2023 024 [facility], [address] [place] [address], [address], 11/15/2023 16:25:01 tsi (thyroid- stimulati ng immunoglo bulin), serum 2023 024 [facility], [address] [place] [address], [address], 11/15/2023 16:25:01 thyroid peroxidas e (tpo) Ab, serum 2023 024 [facility], [address] [place] [address], [address], 11/15/2023 16:25:01 C reactive protein, QN, serum or plasma 2023 024 [facility], [address] [place] [address], [place], [address], 11/15/2023 16:25:00 ESR (erythroc yte sedimenta tion rate), blood 2023 024 [facility], [address] [place] [address], [place], [address], 11/15/2023 16:25:01 TSH + free T4, serum 2023 024 [facility], [address] [place] [address], [address], 11/15/2023 16:25:01 TSH + free T4, serum 2023 024 [facility], [address] [place] [address], [address], 11/15/2023 16:39:56 Referral urologist referral - recent ER trip for R kidney stone 2023 024 [email or web address] Ascencion Sanches MD, [address] [place] [address] Stas Gusman, [place], [address], 05/20/2023 08:42:25 Procedures None recorded. Surgeries None recorded. Imaging US, kidney 2023 024 [email or web address] [facility], [address] [place], [address], 05/22/2023 10:18:20 XR, wrist, 3 or more view 2022 023 [email or web address] Not available 03/26/2023 08:28:25 XR, wrist, 3 or more view 2022 023 ANIL Not available 03/25/2023 15:37:41 XR, shoulder, 2 or more view 2022 023 ANIL Not available 03/25/2023 15:39:23 Medication Orders nitrofura ntoin monohydra te/macroc rystals 100 mg capsule 2024 025 [facility] [address] [place], [address], 04/15/2024 09:36:54 prednison e 10 mg tablet 2023 025 [facility] [address] [place], [address], 04/15/2024 09:14:48 ciproflox acin 500 mg tablet 2023 025 [facility] [address] [place], [address], 04/15/2024 09:14:08 neomycin- polymyxin -hydrocor t 3.5 mg-10,000 unit/mL-1 % ear drops,kaur p 2023 024 [facility] [address] [place], [address], 11/15/2023 16:22:17 meclizine 25 mg tablet 2023 024 [facility] [address] [place], [address], 11/15/2023 16:25:26 triamcino lone acetonide 0.1 % topical cream 2023 024 [facility], [address] [place], [address], 11/15/2023 16:31:44 Breo Ellipta 200 mcg-25 mcg/dose powder for inhalatio n 2022 023 [email or web address] [address] [place], [address], 03/20/2023 08:57:53 Patient TargetsNo targets recorded. Patient Instructions Encounter Date Encounter Id Patient Instructions Last Modified By Organization Details Last Modified Time 04/15/2024 [id number] hypothyroidism: care instructions Not available 04/15/2024 09:38:10 Reason for Referral Urologist Referral for Kidne y stone recent ER trip, has right sided kidney stone, 5 mm (previous urologist does not take her insurance) recent ER trip for R kidney stone Referring Physician: yKra Recio, Internal Medicine, Encounter Date: 05/17/2023 Results Created Date Observation Date Name Description Value Unit Range Abnormal Flag Note LastModifiedBy Organization Detail LastModifiedTime 03/25/20 23 03/21/2023 XR, wrist , 3 or more view No observ ation record ed. [address], [address], 03/25/2023 15:54:38 03/25/20 23 03/21/2023 XR, wrist , 3 or more view No observ ation record ed. [address], [address], 03/25/2023 15:54:38 03/25/20 23 03/21/2023 XR, shoul brooke, 2 or more view No observ ation record ed. [address], [address], 03/25/2023 15:54:39 06/05/19 24 06/05/2023 US, kidne y No observ ation record ed. [email or web address] [facility] [address] [facility], [place], [address], 06/05/2023 16:03:12 07/18/19 24 07/17/2023 CT, chest , w/o contr ast No observ ation record ed. [email or web address] [place] [address] (Medical Records) [address] [place], [address], 07/19/2023 08:35:01 10/08/19 24 10/07/2023 MAMMO , scree tanesha, digit al, bilat eral No observ ation record ed. [email or web address] [facility] [address], [place], [address], 10/08/2023 08:00:38 01/08/20 24 01/08/2024 CT, abdom en, w/wo contr ast No observ ation record ed. [email or web address] [facility] (Medical Records) [address] [place], [address], 01/08/2024 14:22:25 03/12/20 24 03/11/2024 US, retro perit oneum No observ ation record ed. [email or web address] [facility] (Medical Records) [address] [place], [address], 03/13/2024 08:25:53 04/20/19 25 04/07/2024 fluor oscop y (PROC ) No observ ation record ed. [facility] (Medical Records) [address] [place], [address], 04/20/2024 09:10:32 04/22/19 25 04/20/2024 XR, abdom en No observ ation record ed. [facility] (Medical Records) [address] [place], [address], 04/22/2024 16:02:19 05/12/19 25 05/12/2024 imagi ng/di agnos tic resul t No observ ation record ed. [email or web address] [facility] (Medical Records) [address] [place], [address], 05/12/2024 15:33:59 Result Notes None recorded. Problems Name Problem SNOMED Code Status Onset Date Resolution Date Notes Provider Name and Address Organization Details Recorded Time Herpes simplex 03295278 Active 2017 Not Available [facility] 15:48:15 Generaliz ed anxiety disorder 15011733 Active 2021 Not Available [facility] 3 15:48:14 Pain of right shoulder joint 068581222233 16650 Active 2022 JANETTE YODER [address] [place] [address], [address], [facility] 3 16:17:02 Bilateral wrist pain 479265573503 44960 Active 2022 JANETTE YODER [address] [place] [address], [address], [facility] 3 16:17:21 Kidney stone 64239664 Active 2023 JANETTE YODER [address] [place] [address], [address], [facility] 4 09:47:06 Acute otitis media 8690763 Active 2023 JANETTE YODER [address] [place] [address], [address], [facility] 4 16:21:41 Hyperthyr oidism 35005997 Active 2023 JANETTE YODER [address] [place] [address], [address], [facility] 4 16:23:01 Dizziness 015775018 Active 2023 JANETTE YODER [address] [place] [address], [address], [facility] 4 16:24:47 Acute otitis media 9501619 Active 2023 JANETTE YODER [address] [place] [address], [address], [facility] 4 15:12:09 Acute urinary tract infection 550931321 Active 2024 Herminio Lo DO [address] [place] [address], [address], [facility] 5 09:35:43 Asthma 328885695 Active 2017 Not Available [facility] 3 15:48:14 Hypothyro idism 90339442 Active 2017 Not Available [facility] 3 15:48:15 Fibromyal maggie 085520023 Active 2017 Not Available [facility] 3 15:48:14 Migraine 69961838 Active 2017 Not Available [facility] 3 15:48:14 Impaired fasting glycemia 398315295 Active 2017 Not Available [facility] 3 15:48:15 Angioedem a 61219494 Active 2017 Not Available [facility] 3 15:48:15 Eczema 39556239 Active 2017 Not Available [facility] 3 15:48:15 Mixed hyperlipi demia 946485304 Active 2017 Not Available [facility] 3 15:48:14 Anxiety 73894787 Active 2017 Not Available [facility] 3 15:48:15 Problem Notes None recorded. Procedures Surgical History Date Name Laterality Status Provider Name and Address Organization Details Recorded Time 12/11/19 24 Cerumen Removal completed JANETTE YODER [address] [place] [address], [address], [facility] 12/11/2023 15:17:59 05/27/19 24 Colonoscopy completed Herminio Lo DO [address] [place] [address], [address], [facility] 05/27/2023 16:07:28 04/14/19 19 Most Recent Mammogram completed Gema Sotelo [facility] 10/20/2018 16:15:30 04/09/19 19 Colonoscopy completed Ana Queen [facility] 04/09/2018 09:59:35 Imaging Results Imaging Date Name Status LastModified by Organization Details LastModified Time 03/21/2023 XR, wrist, 3 or more view completed [address], [address], 03/25/2023 15:54:38 03/21/2023 XR, wrist, 3 or more view completed [email or web address] [address], [address], 03/25/2023 15:54:38 03/21/2023 XR, shoulder, 2 or more view [facility] [address], [address], 03/25/2023 15:54:39 06/05/2023 US, kidney completed [email or web address] [place] [address] [address] [place], [address], 06/05/2023 16:03:12 07/17/2023 CT, chest, w/o contrast completed [email or web address] (Medical Records) [address] [place], [address], 07/19/2023 08:35:01 10/07/2023 MAMMO, screening, digital, bilateral completed [address], [address], 10/08/2023 08:00:38 01/08/2024 CT, abdomen, w/wo contrast completed [facility] (Medical Records) [address] [place], [address], 01/08/2024 14:22:25 03/11/2024 US, retroperitoneum completed [address] (Medical Records) [address] [place], [address], 03/13/2024 08:25:53 04/07/2024 fluoroscopy (PROC) completed [facility] (Medical Records) [address] [place], [address], 04/20/2024 09:10:32 04/20/2024 XR, abdomen completed [facility] (Medical Records) [address] [place], [address], 04/22/2024 16:02:19 05/12/2024 imaging/diagnostic result completed [email or web address] [place] [address] (Medical Records) [address] [place], [address], 05/12/2024 15:33:59 Procedure Notes None recorded. Medical Equipment None Reported. Allergies Allergen ID Allergen Name Allergen Category Reaction Reaction Severity Criticality Documentation Date Start Date Code Code System Note Provider Name and Address Organization Details Recorded Time 1891 Product containin g penicilli n (product) medicatio n Not available Not available Not available 10/21/2017 64821 8001 [facility] Gema aguilar [facility] 8 16:05:19 1893 Substance with sulfonami de structure and antibacte rial mechanism of action (substanc e) medicatio n Not available Not available Not available 10/21/2017 92927 [facility]003 [facility] 8 16:05:25 5814 lactose food,medi cation diarrhea severe Not available 10/02/2021 6211 RxNorm bleed ing recta lly Gladys Kamran [facility] 2 09:05:44 6992 [facility] medicatio n dizziness moderate Not available 10/03/2022 36148 0 RxNorm JANETTE YODER [address] [place], [address], [facility] 3 09:05:58 Medications Name Sig Start Date [...] e 50 mcg/actua tion nasal spray,kaur pension Stearns 1 spray every day by intranas al [...] Updated DateTime 3 160.02 cm 36.8 kg/m2 98097.2 1 g 76 /min 98 % 98 % 120 mm[Hg] 82 mm[Hg] Oma Sarmiento [facility] 3 16:05:23 Date Recorded Body height Body mass index (BMI) Body weight Heart rate Oxygen saturation Oxygen saturation in Arterial blood by Pulse oximetry Systolic blood pressure Diastolic blood pressure Provider Name and Address Organization Details Last Updated DateTime 4 160.02 cm 36.8 kg/m2 31126.2 1 g 78 /min 95 % 95 % 130 mm[Hg] 80 mm[Hg] Lisa Conley [facility] 4 15:30:45 Date Recorded Body height Provider Name an d Address Organization Details Last Updated DateTime 12/11/2023 160.02 cm Radha Barahonaishaan [facility] 12/11/2023 14:32:14 Date Recorded Heart rate [...] Updated DateTime 04/15/2024 160.02 cm 35.4 kg/m2 33287.47 g 120 mm[Hg] 80 mm[Hg] Lisa Kim [facility] 5 09:16:24 Social History Question Answer Notes LastModified by Organizat ion Details LastModified Time Tobacco Smoking Status Former Smoker Not Available [facility] 02/09/2020 03:36:23 What Is Your Level [...] Of Your Most Recent Tobacco Screening? 04/15/2024 [email or web address] Information not available 04/15/2024 How Many Children [...] N Blood Diseases N Blood Transfusion N COPD N Depression N Anxiety Disorder N Muscle, Joint, or Bone Problems N Obesity N Vision or Eye Problems N Arthritis N Polyps N Infertility N Mental Disorder N Cancer N Varicosities N Stroke N Headaches Y Fibromyalgia Y Kidney Disease N Heart Problems N Hospitalizations N Eating Disorder N Skin Problems N MRSA exposure N Constipation N Tuberculosis N Asthma Y Hepatitis N Pulmonary Embolism N Chicken Pox N Autism Spectrum Disorder (ASD) N Breast Cancer N Lung Disease N Defects or Inherited Disease N Endometriosis N Bladder or Kidney Problems N High Cholesterol Y Liver Disease N Allergies/Hayfever N Thyroid Problems Y GI Problems N Anemia N Mental Illness N Diabetes N Ovarian Cancer N Seizures/Epilepsy N Congestive Heart Failure (CHF) N Eczema N Abuse/Domestic Violence N Diverticulitis N Reflux/GERD N Heart Disease N Hypertension N Osteoporosis N Gynecological History Statement/Question Response Most Recent Mammogram 04/14/2018 Obstetrics History GPAL:G 0 P 0 0 0 0 Immunizations Vaccine Type Date Status Note Provider Nam e and Address Organization Details Recorded Time Influenza, split virus, quadrivalent, preservative 1 completed JANETTE YODER [address] [place] [address], [address], [facility] 05/17/2023 09:14:29 COVID-19, mRNA, LNP-S, PF, 30 mcg/0.3 mL dose 1 completed JANETTE YODER [address] [place] [address], [address], [facility] 05/17/2023 09:14:29 Influenza, split virus, quadrivalent, preservative 8 completed JANETTE YODER [address] [place] [address], [address], [facility] 05/17/2023 09:14:29 Influenza, split virus, trivalent, preservative 9 completed Not Available [facility] 06/17/2020 17:46:43 Influenza, split virus, quadrivalent, preservative 0 completed JANETTE YODER [address] [place], [address], [facility] 05/17/2023 09:14:29 COVID-19, mRNA, LNP-S, PF, 30 mcg/0.3 mL dose 0 completed JANETTE YODER [address] [place] [address], [address], [facility] 05/17/2023 09:14:29 COVID-19, mRNA, LNP-S, PF, 30 mcg/0.3 mL dose 1 completed JANETTE YODER [address] [place] [address], [address], [facility] 05/17/2023 09:14:29 zoster recombinant 1 completed JANETTE YODER [address] [place] [address], [address], [facility] 05/17/2023 09:14:29 Past Encounters Encounter ID Performer Location Encounter Start Date Encounter Closed Date Diagnosis/Indication Diagnosis SNOMED-CT Code Diagnosis ICD10 Code Diagnosis Note [id number] July JAYE Milner [facility] [address] [place] [address],[place] [address] 10/22/2017 08:55:47 10/22/2017 09:52:36 Asthma 877400900 J45.909 well controlled Impaired f asting glycemia 540576427 R73.01 stable diet reinforced Hypothyroidism 78811290 E03.9 needs to be rechecked Migraine 42211443 G43.90 9 on rizatripta n if needed Mixed hyperlipidemia 267 843129 E78.2 improved on increased dose of pravastati n will keep dose the same diet and exercise reinforced to reach goal range Anxiety 30490990 F41.9 well controlled rare use of alprazolam Chronic tremor 724822863 R25.1 will check thyroid bp normal fbs reassuring if thyroid normal will refer to neuro Arthralgia of the ankle and/or foot 674698588 M25.579 reassuring exam recommendd conservati ve management will do xr if pain persists [id number] [facility] [address] [facility] [place] [place] [address] 04/23/2018 08:46:59 04/23/2018 09:23:20 Anxiety 32696983 F41.9 well controlled on sertraline 50 mg rare use of alprazolam Mixed hyperlipidemia 267 649660 E78.2 has been inconsiste nt with dosing levels are much the same with slight worsening of HDL/LDL ratios diet and exercise reinforced to reach goal range Asthma 831078425 J45.90 9 well controlled Impaired f asting glycemia 596914159 R73.01 stable diet reinforced Hypothyroidism 05424564 E03.9 normal 04/2018 same dose of 125 Active or passive immunization 771274484 Z23 Body mass index 30+ - obesity 504013382 Z68.35 healthy diet and exercise Migraine 78204452 G43.90 9 on rizatripta n if needed Vitamin D deficiency 347 19424 E55.9 [id number] [facility] [address] [facility], [place] [address] 10/21/2018 13:20:55 10/21/2018 16:04:51 Adult health examination 739366933 Z00.00 Active or passive immunization 051712001 Z23 Anxiety 25218737 F41.9 well controlled on sertraline 50 mg rare use of alprazolam Mixed hyperlipidemia 267 593017 E78.2 well controlled LDL improved compared to previous Asthma 735572701 J45.90 9 well controlled no issues in quite some time Impaired f asting glycemia 053594130 R73.01 stable diet reinforced Hypothyroidism 85415892 E03.9 normal 10/2018 same dose of 125 Seasonal a llergic rhinitis 434617173 J30.2 try xyzal Eczema 28396316 L30.9 Skin lesion 25222585 L98 .9 [id number] [facility] [address] [facility], [place] [address] 05/06/2019 13:20:00 05/06/2019 14:00:04 Asthma 671652984 J45.909 well controlled no issues in quite some time Anxiety 88376463 F41.9 rare, doesn't even use alprazolam Mixed hyperlipidemia 267 752530 E78.2 well controlled LDL improved compared to previous Impaired f asting glycemia 275867420 R73.01 stable diet reinforced Hypothyroidism 58366340 E03.9 normal 10/2018 same dose of 125 Seasonal a llergic rhinitis 672547945 J30.2 using xyzal/flon ase as needed, basically all year except winter Eczema 63870217 L30.9 not bothersome Allergy to penicillin 91 [address] gaviria for allergy testing for this and sulfa [id number] JANETTE YODER [facility] [address] [facility] [place] [address] 03/28/2020 09:40:30 03/28/2020 11:18:40 Hypothyroidism 96925547 E03.9 will fu with lab work when it comes in will send in refill Eczema 21546253 L30.9 will trial increased strength cream and see if it works better [id number] JANETTE YODER [facility] [address] [facility] [place],[place] [address] 09/28/2020 08:55:13 09/28/2020 09:30:16 Active or passive immunization 309986793 Z23 advised Adult heal th examination 618384198 Z00.00 BP excellent Easy bruising 798115815 R58 will do work up for easy bruising and recheck her TSH which is due Menopausal flushing 1983 10508 N95.1 will trial paxilmothe r has ovarian cancer, cannot use HRT [id number] JANETTE YODER [facility] [address] [facility] [place] [address] 10/02/2021 08:59:55 10/02/2021 14:01:44 Active or passive immunization 015766630 Z23 advised Adult heal th examination 577361343 Z00.00 BP excellent today [id number] JANETTE YODER [facility] [address] [facility],[place] [address] 10/03/2022 08:52:12 10/03/2022 09:21:28 Active or passive immunization 693675913 Z23 advised Adult heal th examination 247633001 Z00.00 BP excellent today Anxiety 13255484 F41.1 increased dose [id number] JANETTE YODER [facility] [address] [facility] [place],[place] [address] 03/19/2023 15:55:26 03/20/2023 08:31:40 Pain of right shoulder joint 4842103862 3660243 M25.511 will need MRI Bilateral wrist pain 581 0727949 6752880 M25.531 will prob need hand surgeon referralwo uld like assessment of wrist joints as well Asthma 888596448 J45.21 will refill [id number] JANETTE YODER [facility] [address] [facility], [place] [address] 05/17/2023 09:14:09 05/20/2023 08:42:25 Kidney stone 80597799 N20.0 5 mm right ureteral stoneneeds new urologist who takes her insurancew ill f/u with US kidney since she had to cancel her original since Dr. Mcgee ordered itwill fax results to urology [id number] JANETTE YODER [facility] [address] [facility],[place] [address] 11/15/2023 15:12:39 11/18/2023 08:14:00 Acute otitis media 1977329 H65.03 start ear drops Hyperthyroidism 82897629 E05.90 set up with lab work Adult [facility] examination 872784899 Z00.00 BP excellent today Dizziness 227207524 R42 will start on meclizine Impaired f asting glycemia 857197310 R73.01 agreed to set up standing orders for patient Eczema 62390654 L30.9 will trial increased strength cream and see if it works better [id number] JANETTE YODER [facility] [address] [facility],[place] [address] 12/11/2023 14:23:26 12/11/2023 16:11:32 Acute otitis media 9311116 H65.03 will set up with prednisone and cipro for the patient Hypothyroidism 66011512 E03.8 will fu with lab work when it comes in will send in refill [id number] Herminio Lo DO [facility] [address] [facility],[place] [address] 04/15/2024 09:08:22 04/15/2024 09:39:50 Kidney stone 19342269 N20.0 per urology will be getting litho in may Acute urin ashley tract infection 269671039 N39.0 Hypothyroidism 32004328 E03.8 will adjust thyroid dose by taking [...] Linder Member ID Guarantor Name 03/19/[address] [facility] (HMO) Jaja Lobudek [id number] Jaja Lobudek 05/17/[address] [facility] (HMO) Jaja Lobudek [id number] Jaja Lobudek 11/15/2023 1 [employer] (PPO) [id number] Jaja G Lobudek [id number] Jaja Lobudek 12/11/2023 1 [employer] (PP[employer]) [id number] Jaja G Lobudek [id number] Jaja Lobudek 04/15/2024 1 [employer] (PP[employer]) [id number] Jaja G Lobudek [id number] Jaja Lobudek Notes Date Note Type Note [...] tendon tenderness and palpation JANETTE YODER [address] [facility], [place], [address], [facility] 03/19/2023 16:23:51 05/17/19 24 text/htm l ER f/u The patient is participating in this appointment via telemedicine communication with a phone call/video calling service (Acacia)The patient consents to use of these platforms [...] the interim between switching urologists JANETTE YODER [address] [place] [address], [id number], [facility] 05/17/2023 09:55:27 11/15/19 24 text/htm l Annual [...] hearing Vision:no vision problems JANETTE YODER [address] [place], [phone], [facility] 11/15/2023 16:32:31 12/11/19 [...] dental pain; no jaw pain JANETTE YODER [address] [place] [address], [phone], [facility] 12/11/2023 15:23:44 04/15/19 25 text/htm l here for rechk soince her surgery fr kidney stonedid well but stone was impacted rleates that she has had significant increase in frequency of urination also has been shaky and jittery since last synthroid adjust Herminio Lo DO [address] [place], [phone], [facility] 04/15/2024 09:39:03 OBGyn Episode No OBEpisode recorded.
== END 2024-06-11 09:17 | disposition home or self-care (01) ==
LOC: HO.US 09:16
PROVIDERS: PCP Internal Medicine; Visit Provider Urology
DX: Z87.442 Personal history of urinary calculi (principal); N20.0 Calculus of kidney
CPT/HCPCS: 76775

== ENCOUNTER → 2024-06-11 09:19 | Outpatient (BNV) | payer OTHER, SELFPAY | PROVIDERS: PCP Internal Medicine; Visit Provider Radiology Diagnostic Radiology | DX: Z87.442 Personal history of urinary calculi (principal) | CPT/HCPCS: 76775 ==

== ENCOUNTER → 2024-07-02 16:02 | Outpatient (BNVA) | payer OTHER, SELFPAY | PROVIDERS: PCP Internal Medicine; Visit Provider Urology ==

== ENCOUNTER 2024-07-03 08:42 | Outpatient (AMB) | payer OTHER, SELFPAY ==
--- NOTE | 2024-07-03 08:50 | A.OFFVIS_ITS ---
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 Accompanied by: Self / Same As Patient Allergies Penicillins Allergy (Mild, Verified 07/03/24 08:51) Anaphylaxis Sulfa (Sulfonamide Antibiotics) Allergy (Verified 07/03/24 08:51) Rash Medication List - Last Reconciled 07/03/24 by Amber Blanco MD fluticasone furoate-vilanterol 200-25 mcg/dose (Breo Ellipta) 1 ea inhalation DAILY PRN levalbuterol tartrate 45 mcg/actuation 2 puffs inhalation Q4-6H levothyroxine (Synthroid) 112 mcg PO DAILY mirtazapine 15 mg PO BEDTIME PRN pravastatin 40 mg PO DAILY HPI Comments Details: 07/02/24-- 59-year-old female presenting for follow-up on renal ultrasound results. She has a history of ureteral stone that led to hydronephrosis. Previously, she underwent ureteroscopy for stone extraction. A metabolic workup a year ago showed a low urine volume of 1.37 liters but normal calcium, oxalate, and citrate levels. She was advised at that time to increase her fluid intake to 2 to 2.5 liters daily. A recent ultrasound on 06/11/24 showed resolved hydronephrosis. During the visit, we discussed the results of the renal ultrasound, which showed resolution of the previously noted hydronephrosis. I emphasized the importance of maintaining adequate fluid intake to prevent the recurrence of stones. No other immediate interventions were necessary, and we agreed on routine follow-up. Further assessment or intervention would depend on any recurrence of symptoms. Results - Tests and Diagnostics: - Renal ultrasound on 06/11/24: Results normal, hydronephrosis resolved. 05/29/24--is here for ureteral stent removal status post cystoscopy ureteroscopy stone extraction and stent exchange. Ureteral stent removed without difficulty. We will check a renal ultrasound in 4 weeks. The patient had a 24 hour urine done last year which was within normal limits other than volume at about 1.5 L. Patient encouraged to increase fluids and continue to add lemon to diet. 04/24/24--s/p right ureteroscopy, (proximal ureteral stone impacted) ureteral s tent on 04/07/24. KUB 04/20/24- ureteral stone remains proximal, stent in good position. Discussed ureteroscopy laser lithotripsy, stent exchange. Risks discussed included but not limited to, possible need to repeat procedure if stone is not completely fragmented, Irritative voiding symptoms, bladder spasms, urgency, blood in urine. Pt states still has bladder spasms even while taking the vesicare 5mg daily. I will have her increase to bid. 03/18/24--LV 02/21/24--Serena has been asymptomatic. Persistent right hydronephosis on fu renal us 03/11/24. recommend cystoscopy ureteroscopy, stent. 02/21/2024--I have reviewed CT findings: 01/08/24 with the patient which noticed a ureteral stone. The patient states she has no kidney pain or urinary symptoms. I will check an ultrasound kidney and bladder to fu hydronephrosis and ureteral stone, no enhancing renal mass noted. CTAT w/wo IV contrast- 01/07/34--There is a 6 mm obstructing calculus in the mid right ureter with moderate right hydroureteronephrosis. no suspicious renal mass. 07/26/2023--Serena has a history of kidney stones. She was initially evaluated on 06/11/2023. I discussed metabolic workup and she completed 24 hour urine on 07/02/2023. Discussed 24 hour urine results: Total volume 1.37 L, Calcium 82 mg; Oxalate 22 mg, Sodium 126, Citrate 522 mg. Instructed on importance of fluid intake, discussed increasing fluid intake to [address] imaging without IV contrast completed on 07/17/2023 which noted a indeterminate renal mass. Plan repeat CT with and without IV contrast follow-up in 6 months. CTAP: 07/17/2023-- Right kidney revealed speckled calcifications in the lower pole questionably associated with mass. nonobstructing 0.6 cm stone lower pole. Left kidney is unremarkable. 06/11/23--Serena is a 58-year-old female here for new patient evaluation. She has a history of kidney stones for about 4-5 years. She states that her prior urologist no longer takes her insurance. The patient states that on 05/07/[address] scan due to right flank pain. She has a report on her phone that I have reviewed. (office will have report faxed to my attention) The report indicated mild right hydronephrosis with 5 mm distal ureteral stone and other nonobstructing right kidney stones. Left kidney within normal limits. The patient had follow-up imaging with an ultrasound. The patient states that she no longer has pain. She denies any irritative voiding symptoms. I reviewed renal ultrasound report dated 06/05/2023-- right hydronephrosis, moderate, minimal cortical scarring as seen on prior CT on 05/07/2023 for left kidney within normal limits. Discussed re-evaluation with CT abdomen and pelvis without IV contrast. Diet sheet provided and reviewed with information regarding recommendations to reduce kidney stone production. She states that she is on a high-protein diet for weight management. Discussed 24 hour urine collection to be obtained. Follow up in 6 weeks [facility] Medical History Hx of mammogram Mixed hyperlipidemia Angioedema Migraine Fibromyalgia Hypothyroid Asthma Anxiety Impaired fasting blood sugar Surgical History History of dental surgery Hx of colonoscopy Family History Father No problems noted. Mother No problems noted. Social History Are you a primary laboratory animal caretaker to a significant other at home: No Do you presently have visiting nurse or other home services: No Alcohol intake: current Alcohol intake frequency: holidays/special occasions only Patient Tobacco Use Status: Former Tobacco user Review of Systems Const All systems reviewed & are unremarkable except as noted in HPI and below Reports no additional complaints Eyes Reports no additional complaints ENT Reports no additional complaints Card Reports no additional complaints Resp Reports no additional complaints GI Reports no additional complaints Reports as per HPI Musc Reports no additional complaints Skin/Breast Reports system reviewed and no additional complaints, except as documented Neuro Reports no additional complaints Psych Reports no additional complaints Endo Reports no additional complaints James/Lymph Reports no additional complaints Aller/Immun Reports no additional complaints Telehealth Telehealth Telehealth Platform: [employer] Location of provider rendering services: practice address Location of patient: address on file Patient Identification confirmed using: Name, : Yes Telehealth method: video Patient verbally consented to treatment: Yes Patient verbally consented to billing insurance company: Yes Patient informed of any privacy concerns related to visit: Yes Results Reviewed Results Reviewed: Date of Service: 06/11/24 CLINICAL HISTORY: Z87.442 - Personal history of urinary calculi US RENAL Comparison: None Findings: Right kidney measures 9.4 cm in length. Normal cortical thickness and echogenicity. There is mild fullness of the renal pelvis with no nevaeh hydronephrosis. No shadowing calculus or cortical mass lesion. Left kidney measures 10.2 cm in length. Normal cortical thickness and echogenicity. No hydronephrosis, shadowing calculus or cortical mass lesion. IMPRESSION: Mild right renal pelviectasis otherwise unremarkable bilateral kidneys. Date of Service: 03/11/24 US RETROPERITONEAL COMPLETE (RENAL) CLINICAL INFORMATION: Hydronephrosis. COMPARISON: CT abdomen January 08, 2024 TECHNIQUE: Real-time imaging of the kidneys and bladder. FINDINGS: RIGHT KIDNEY: 10.9 x 5 x 5.3 cm (SAG x AP x TRV). The kidney is normal in size, contour, and echogenicity. Renal cortical thickness is normal. Moderate right hydronephrosis. LEFT KIDNEY: 10.6 x 5.1 x 5.8 cm (SAG x AP x TRV). The kidney is normal in size, contour, and echogenicity. Renal cortical thickness is normal. No calculi or focal parenchymal lesions. No hydronephrosis. BLADDER: Well distended and normal. Bilateral ureteral jets are demonstrated. Prevoid bladder volume is 406 mL. Postvoid volume is 16.5 mL. IMPRESSION: Moderate right-sided hydronephrosis. Date of Service: 01/08/24 CT ABDOMEN WITHOUT AND WITH CONTRAST CLINICAL INFORMATION: Renal mass COMPARISON: None available. TECHNIQUE: Contiguous axial thin section helical images of the abdomen were performed before and after the administration of 85 mL of Omnipaque 350 intravenous contrast. The data set was reformatted in the coronal and sagittal planes and reviewed on an independent workstation. This CT examination was performed using dose optimization techniques as appropriate, variously including the following: *Automated exposure control *Adjustment of mA and/or kV according to patient size (this includes techniques or standardized protocols for targeted exams where dose is matched to indication/reason for exam; i.e. extremities or head) *Use of iterative reconstruction technique DLP: 511 mGy-cm FINDINGS: LUNG BASES: Clear LIVER, GALLBLADDER, AND BILIARY TREE: Mild diffuse fatty infiltration of the liver. No focal liver lesion. No intrahepatic biliary ductal dilatation. PANCREAS: Normal SPLEEN: Normal ADRENAL GLANDS AND KIDNEYS: Normal adrenal glands. There is a 6 mm obstructing calculus in the mid right ureter with moderate hydroureteronephrosis. At the anterior aspect of the lower pole of the right kidney, there is a 1.6 cm area of cortical thinning and retraction with multiple small calcifications with no definite enhancing mass. This may represent an area of prior surgery or a remote infarct or site of infection. The left kidney appears normal. BOWEL LOOPS: Visualized small and large bowel loops are unremarkable. LYMPH NODES: Normal. VASCULAR: Scattered atherosclerotic calcifications of the abdominal aorta. BONES: Unremarkable IMPRESSION: 1. There is a 6 mm obstructing calculus in the mid right ureter with moderate right hydroureteronephrosis. 2. There is a 1.6 cm area of cortical thinning and retraction at the anterior aspect of the lower pole of the right kidney with multiple small calcifications with no definite enhancing mass. This may represent an area of prior surgery or a remote infarct or site of infection. 3. Mild fatty infiltration of the liver. Date of Service: 07/17/23 EXAMINATION: CT ABDOMEN AND PELVIS WITHOUT CONTRAST CLINICAL INFORMATION: Hydronephrosis COMPARISON: None available. TECHNIQUE: Multidetector volumetric imaging was performed from the superior aspect of the liver through the pubic symphysis. Sagittal and coronal reformatted images were obtained on the technologist's workstation. This CT examination was performed using dose optimization techniques as appropriate, variously including the following: *Automated exposure control *Adjustment of mA and/or kV according to patient size (this includes techniques or standardized protocols for targeted exams where dose is matched to indication/reason for exam; i.e. extremities or head) *Use of iterative reconstruction technique DLP: 585 mGy-cm FINDINGS: LUNG BASES: The visualized lung bases are unremarkable. LIVER, GALLBLADDER, AND BILIARY TREE: Liver is of low attenuation due to hepatic steatosis and enlarged The gallbladder is unremarkable with no evidence of radiopaque gallstones, gallbladder wall thickening, or obvious pericholecystic inflammatory changes. PANCREAS: Unremarkable. SPLEEN: Unremarkable. ADRENAL GLANDS: Unremarkable. KIDNEYS AND URETERS: 4 harding BLADDER: Bladder is decompressed without stones or masses GASTROINTESTINAL TRACT: The small and large bowel are unremarkable. The appendix is unremarkable. ABDOMINAL WALL: No significant hernia is appreciated. LYMPH NODES: Normal. VASCULAR: Unremarkable. PELVIC VISCERA: Unremarkable. OSSEOUS STRUCTURES: Unremarkable. IMPRESSION: 1. Right nephrolithiasis without hydroureteronephrosis. 2. Questionable mass in the lower pole of the right kidney associated with calcifications. Correlate with IV enhanced CT scan or/and ultrasound 3. Hepatic steatosis and hepatomegaly. Assessment & Plan Assessment & Plan (1) History of kidney stones: Code(s): Z87.442 - Personal history of urinary calculi Category: Medical Plan Increase fluids, fu one year, renal US, will monitor kidneys Orders: Orders US renal BI 10 Months Z87.442 - Personal history of urinary calculi Patient Instructions: The patient had an opportunity to ask questions regarding treatment plan. The patient expressed understanding and agreement with the above treatment plan. The patient is aware they should contact our office by phone for worsening of their current condition or the appearance of new symptoms. Compliance is encouraged with any medications and followup testing that is ordered. It is a privilege to be allowed the opportunity to participate in the urologic care of your patient. If you have any questions or concerns regarding treatment for the above conditions please do not hesitate to contact me. The office telephone contact is [phone]. This note is constructed in part using voice recognition software. While every effort has been made to ensure accuracy field service technician errors may have been included. Yours sincerely, Amber Blanco MD Scribe Plan - Not visible on output: Patient was informed and verbally consented to the use of an ambient scribe for clinic note documentation during this visit. Coding Level of Care Code Tele Est Pt Level 3 (41120) Diagnoses History of kidney stones Z87.442
== END 2024-07-03 10:48 | disposition home or self-care (01) ==
LOC: HO.HUSH 08:42
PROVIDERS: PCP Internal Medicine; Visit Provider Urology
DX: Z87.442 Personal history of urinary calculi (principal)
CPT/HCPCS: 99213

== ENCOUNTER 2024-11-13 09:45 | Outpatient (REF) | payer OTHER, SELFPAY ==
[2024-11-13 13:06] LABS: MANUAL DIFF FLAG NO
[2024-11-13 13:26] LABS: Hematocrit 41.8 % (37.0-47.0); Hemoglobin 14.6 g/dl (12.0-16.0); Imm Gran Abs Auto 0.01 X10*3/uL (0.00-0.03); Imm Gran Pct Auto 0.2 % (0.0-0.4); Lymphocytes Absolute Auto 2.8 X10*3/uL (1.2-4.9); Mean Corpuscular HGB Conc 34.9 g/dl (31.0-35.0); Mean Corpuscular Hemoglobin 31.9 pg (27.0-33.0); Mean Corpuscular Volume 91.5 fL (80.0-98.0); NRBC Abs Auto 0.000 X10*3/uL (0.0-0.012); NRBC Pct Auto 0.0 /100WBC (0.0-0.2); Platelet Count 158 X10*3/uL (160-400); Red Blood Count 4.57 X10*6/uL (4.20-5.50); White Blood Count 6.6 X10*3/uL (4.8-10.8)
[2024-11-13 13:48] LABS: Alanine Aminotransferase 85 U/L (0-31); Albumin Level 4.3 g/dL (3.5-5.0); Alkaline Phosphatase 80 U/L (39-117); Anion Gap 12 (12-20); Aspartate Amino Transferase 55 U/L (5-31); Blood Urea Nitrogen 15 mg/dL (9-16); Calcium 8.9 mg/dL (8.4-10.2); Carbon Dioxide 25 mmol/L (22-29); Chloride 111 mmol/L (96-108); Cholesterol 188 mg/dL (<200); Estimated Glomerular Filt Rate > 60; HDL Cholesterol 53 mg/dL (>40); Potassium 4.3 mmol/L (3.3-5.1); Sodium 144 mmol/L (135-145); Total Protein 6.5 g/dL (6.5-8.0); Triglycerides 118 mg/dL (<150)
== END 2024-11-13 09:46 | disposition home or self-care (01) ==
LOC: HO.MANLDS 09:45
PROVIDERS: Visit Provider Physician Assistant
DX: I10 Essential (primary) hypertension (principal)
CPT/HCPCS: 36415; 80053; 80061; 85025